=== PATIENT | male | born 1955 | race Caucasian/White ===

== ENCOUNTER 2016-08-19 05:57 | Inpatient (IN) | payer MEDICARE, OTHER ==
[2016-08-19] MEDS ORDERED: HYDROmorphone 1 MG/ML Syringe IVPUSH ONE (06:14)
[2016-08-19] MEDS ORDERED: Ondansetron 4 MG/2 ML SDV IVPUSH ONE (06:15)
[2016-08-19] MEDS: Sodium Chloride 0.9% 1,000 ML IV SCH ×3 (06:19→19:12)
--- NOTE | 2016-08-19 07:40 | EDM.PDOC ---
ED HPI GENERAL MEDICAL PROBLEM - General Chief Complaint: Abdominal Pain Stated Complaint: [facility] Time Seen by Provider: 08/19/16 06:14 Source of Information: Reports: Patient, EMS History Limitations: Reports: Altered mental status - History of Present Illness INITIAL COMMENTS - FREE TEXT/NARRATIVE: 61-year-old male with metastatic liver cancer was brought in by ambulance with "abdominal pain". His history is very difficult to obtain because the patient received Dilaudid prior to me seeing him and he is very lethargic, slurred speech and difficult to understand. It appears he's currently homeless, the abdominal pain has been bothering him for 1 to 2 days. Onset: unknown/unsure Location: Reports: abdomen abdominal Pain Score (Numeric/FACES): 10 - Related Data Allergies Allergy/AdvReac Type Severity Reaction Status Date / Time Penicillins Allergy Hives Verified 06/22/16 10:11 Home Meds: Home Meds Pramipexole [Mirapex] 1 mg PO TID 05/31/13 [History] oxyCODONE 10 mg PO Q4H PRN 04/14/15 [History] Nexavar 200 mg PO BID 03/16/16 [History] Rifaximin [Xifaxan] 1 tab PO BID 03/16/16 [History] Bacitracin [Bacitracin Oint] 1 gm TOP TID #1 tube 06/07/16 [Rx] Hypromellose [Natural Balance Tears] 0 ml EYEBOTH DAILY PRN #0 bottle 06/07/16 [ Rx] Diphenoxylate HCl/Atropine [Lomotil] 1 tab PO Q6H PRN #16 tablet 07/05/16 [Rx] Ondansetron [IMW: Ondansetron ODT] 4 mg PO .EVERY 6 HOURS PRN #10 tab 07/05/16 [ Rx] Past Medical History HEENT History: Reports: Impaired vision Other HEENT History: adnoids Cardiovascular History: Reports: Arrhythmia, Pacemaker Other Cardiovascular History: Edema Respiratory History: Reports: SOB, Other (see below) Other Respiratory History: "lung capacity of an 78 year old" Gastrointestinal History: Reports: Cirrhosis, Colon polyp, Diverticulosis, Hepatitis, Other (see below) Other Gastrointestinal History: diverticulitis, bleeding ulcer, hep C. Live CA Genitourinary History: Reports: Renal calculus Musculoskeletal History: Reports: Back pain, chronic, Neck pain, chronic Other Musculoskeletal History: laminectomy Neurological History: Reports: Concussion, Other (see below) Other Neuro History: RLS Psychiatric History: Reports: Addiction Endocrine/Metabolic History: Reports: Diabetes, type II, Other (see below) Other Endocrine/Metabolic History: lost 60lbs no longer diabetic Hematologic History: Reports: Anemia, Blood transfusion(s) Immunologic History: Reports: Immunosuppression Other Immunologic History: hepatitis c, chemo Oncologic (Cancer) History: Reports: Liver Other Oncologic History: 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 Terminal CA Dermatologic History: Reports: Cellulitis, Other (see below) Other Dermatologic History: MRSA - Infectious Disease History Infectious Disease History: Reports: MRSA - Past Surgical History HEENT Surgical History: Reports: Adenoidectomy, Tonsillectomy Cardiovascular Surgical History: Reports: Other (see below) Other Cardiovascular Surgeries/Procedures: ablation Other GI Surgeries/Procedures: liver cancer. Paracentesis done 03/16/2016 with 3200ml fluid removed. 05/2016 [place] shunt Male Surgical History: Reports: Lithotripsy (ESWL) Neurological Surgical History: Reports: Laminectomy Musculoskeletal Surgical History: Reports: Other (see below) Other Musculoskeletal Surgeries/Procedures:: left bicep repair Social & Family History - Family History Family Medical History: Noncontributory HEENT: Reports: None - Tobacco Use Smoking Status *Q: Current Every Day Smoker Years of Tobacco use: 5 Packs/Tins Daily: 0.5 Used Tobacco, but Quit: No Month Tobacco Last Used: november Second Hand Smoke Exposure: Yes - Caffeine Use Caffeine Use: Reports: Coffee - Alcohol Use Days Per Week of Alcohol Use: 0 - Recreational Drug Use Recreational Drug Use: Yes Drug Use in Last 12 Months: Yes Recreational Drug Type: Reports: Marijuana/Hashish Other 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 has 6 children in the area.) ED ROS GENERAL - Review of Systems Review Of Systems: Unable To Obtain ED EXAM, GENERAL - Physical Exam Exam: See Below Exam Limited By: Altered mental status General Appearance: lethargic Eye Exam: bilateral eye: other (Able to open his eyes on command briefly) Respiratory/Chest: no respiratory distress, lungs clear Cardiovascular: regular rate, rhythm GI/Abdominal: distended (Abdomen is diffusely tender and distended, it doesn't seem to have a focal area of tenderness), tender Extremities: redness (Patient has hyperemic skin of the lower extremities along with 2+ pedal edema) Psychiatric: depressed mood, flat affect Skin Exam: Erythema (Lower extremities below the knees), Pallor Course - Vital Signs Last Recorded V/S: Last Vital Signs Temp 98.2 F 08/19/16 10:08 Pulse 69 08/19/16 07:11 Resp 18 08/19/16 10:08 BP 115/67 08/19/16 10:08 Pulse Ox 99 08/19/16 10:08 - Orders/Labs/Meds Orders: Active Orders 24 hr Category Date Time Status UA W/MICROSCOPIC [URIN] Stat Lab 08/19/16 06:16 Uncollected Sodium Chloride 0.9% [Normal Saline] 1,000 ml Med 08/19/16 06:15 Active IV ASDIRECTED Medication Orders Artificial Tears (Natural Balance Tears) 0 ml EYEBOTH DAILY PRN PRN Reason: Dry Eyes Bacitracin (Bacitracin Oint) 0 gm TOP TID [facility] Diphenoxylate HCl/Atropine (Lomotil 0.025-2.5 Mg) 1 tab PO Q6H PRN PRN Reason: Diarrhea Sodium Chloride (Normal Saline) 1,000 mls @ 100 mls/hr IV ASDIRECTED [facility] Last Admin: 08/19/16 06:19 Dose: 150 mls/hr Non-Formulary Medication (Nexavar) 200 mg PO BID [facility] Ondansetron HCl (Zofran Odt) 4 mg PO Q4H PRN PRN Reason: Nausea able to take PO Oxycodone HCl (Oxycodone) 10 mg PO Q4H PRN PRN Reason: Pain Pramipexole Dihydrochloride (Mirapex) 1 mg PO TID [facility] Rifaximin (Xifaxan) 550 mg PO BID [facility] Sodium Chloride (Saline Flush) 10 ml FLUSH ASDIRECTED PRN PRN Reason: Keep Vein Open Labs: Laboratory Tests 08/19/16 08/19/16 08/19/16 Range/Units 06:16 06:16 07:04 WBC 6.4 (4.5-11.0) K/uL RBC 3.56 L (4.30-5.90) M/uL Hgb 10.6 L (12.0-15.0) g/dL Hct 31.2 L (40.0-54.0) % MCV 88 (80-98) fL MCH 30 (27-31) pg MCHC 34 (32-36) % Plt Count 62 L (150-400) K/uL Neut % (Auto) 69 H (36-66) % Lymph % (Auto) 15 L (24-44) % [place] % (Auto) 9 H (2-6) % Eos % (Auto) 7 H (2-4) % Baso % (Auto) 1 (0-1) % Sodium 146 (140-148) mmol/L Potassium 3.9 (3.6-5.2) mmol/L Chloride 113 H (100-108) mmol/L Carbon Dioxide 24 (21-32) mmol/L Anion Gap 12.9 (5.0-14.0) mmol/L BUN 24 H (7-18) mg/dL Creatinine 1.0 (0.8-1.3) mg/dL Est Cr Clr Drug Dosing 85.45 mL/min Estimated GFR (MDRD) > 60 (>60) Glucose 131 H (74-106) mg/dL Calcium 7.4 L (8.5-10.1) mg/dL Total Bilirubin 1.4 H (0.2-1.0) mg/dL AST 104 H (15-37) U/L ALT 109 H (12-78) U/L Alkaline Phosphatase 90 (46-116) U/L Ammonia 163 H (11-32) mmol/L Total Protein 7.0 (6.4-8.2) g/dL Albumin 2.0 L (3.4-5.0) g/dL Globulin 5.0 H (2.3-3.5) g/dL Albumin/Globulin Ratio 0.4 L (1.2-2.2) Meds: Medications Generic Name Dose Route Start Last Admin Trade Name Freq PRN Reason Stop Dose Admin Artificial Tears 0 ml 08/19/16 09:03 Natural Balance Tears EYEBOTH DAILY PRN Dry Eyes Bacitracin 0 gm 08/19/16 14:00 Bacitracin Oint TOP TID [facility] Diphenoxylate HCl/Atropine 1 tab 08/19/16 09:03 Lomotil 0.025-2.5 Mg PO Q6H PRN Diarrhea Sodium Chloride 1,000 mls @ 100 mls/hr 08/19/16 06:15 08/19/16 06:19 Normal Saline IV 150 mls/hr ASDIRECTED KRYS Administration Non-Formulary Medication 200 mg 08/19/16 21:00 Nexavar PO BID [facility] Ondansetron HCl 4 mg 08/19/16 08:57 Zofran Odt PO Q4H PRN Nausea able to take PO Oxycodone HCl 10 mg 08/19/16 09:03 Oxycodone PO Q4H PRN Pain Pramipexole Dihydrochloride 1 mg 08/19/16 14:00 Mirapex PO TID KR[facility] Rifaximin 550 mg 08/19/16 11:00 Xifaxan PO BID KR[facility] Sodium Chloride 10 ml 08/19/16 08:57 Saline Flush FLUSH ASDIRECTED PRN Keep Vein Open Discontinued Medications Generic Name Dose Route Start Last Admin Trade Name Freq PRN Reason Stop Dose Admin Hydromorphone HCl 1 mg 08/19/16 06:14 08/19/16 06:20 Dilaudid IVPUSH 08/19/16 06:15 1 mg ONETIME ONE Administration Ondansetron HCl 4 mg 08/19/16 06:15 08/19/16 06:19 Zofran IVPUSH 08/19/16 06:16 4 mg ONETIME ONE Administration - Re-Assessments/Exams Free Text/Narrative Re-Assessment/Exam: 08/19/16 07:38 Initial labs were ordered by Dr. Valdes and IVs initiated by EMS were continued. Patient was complaining of significant pain so was given 1 mg of Dilaudid IV. I added an ammonia level, and after a brief visit and exam with the patient I contacted Dr. Wei Umaña for admission 08/19/16 08:12 Ammonia level was 163, he also had diffuse elevated liver enzymes and bilirubin. In a confused state he got out of bed and sat on the commode for a loose stool but did not pull down his diaper. He continued to be nauseated with occasional emesis and may need an NG for lactulose therapy. I will discuss this with his primary care provider who will be admitting the patient. Departure - Departure Time of Disposition: 09:47 Disposition: Admitted As Inpatient 64 Condition: poor Clinical Impression: Hepatic encephalopathy, Liver cancer, primary, with metastasis from liver to other site Hepatic cirrhosis Qualifiers: Hepatic cirrhosis type: other cirrhosis Qualified Code(s): K74.69 - Other cirrhosis of liver
[2016-08-19] MEDS ORDERED: Sodium Chloride 0.9% 10 ML Syringe FLUSH PRN (08:57)
[2016-08-19] MEDS ORDERED: Ondansetron 4 MG Tab.DIS PO PRN ×2 (08:57→09:03)
[2016-08-19] MEDS ORDERED: Hypromellose 0.4% Ophth Soln 15 ML Bottle EYEBOTH PRN (09:03)
[2016-08-19] MEDS ORDERED: Atropine/Diphenoxylate 0.025-2.5 MG Tab PO PRN (09:03)
[2016-08-19] MEDS: Rifaximin 550 MG Tab PO SCH ×2 (13:29→21:12)
[2016-08-19] MEDS: Pramipexole 0.5 MG Tab PO SCH ×2 (13:30→21:12)
[2016-08-19] MEDS: Bacitracin Oint 28.35 GM Tube TOP SCH ×2 (13:41→21:12)
[2016-08-19] MEDS: oxyCODONE 5 MG Tab PO PRN (13:47)
--- NOTE | 2016-08-19 20:59 | PCM.HP ---
H&P History of Present Illness - General Date of Service: 08/19/16 Admit Problem/Dx: Admission Diagnosis/Problem Admission Diagnosis/Problem Liver failure Source of Information: Patient, Old records History Limitations: Reports: Altered mental status - History of Present Illness Initial Comments - Free Text/Narative: Jonathan is a 61-year-old male who has a know hepatocellular carcinoma with metastasis in severe liver failure. He was recently in the hospital in [place] after coming back from seeing his sister in [place] and he was week. He comes in after being bought in by ambulance. He is not able to take care of himself. His mental status is very poor. He is orientated to person and place not sure about time. His condition is chronic having a very poor appetite and very weak. He does have pain which is controlled by narcotics. Without narcotics his pain is 10/10. Onset of Symptoms: Reports: gradual Location: Reports: abdomen Severity: severe Improves with: Reports: None Worsens with: Reports: Movement Context: Reports: activity/exercise Associated Symptoms: Reports: malaise, weakness abdominal Pain Score (Numeric/FACES): 10 - Related Data Allergies/Adverse Reactions: Allergies Allergy/AdvReac Type Severity Reaction Status Date / Time Penicillins Allergy Hives Verified 06/22/16 10:11 Home Medications: Home Meds Pramipexole [Mirapex] 1 mg PO TID 05/31/13 [History] oxyCODONE 10 mg PO Q4H PRN 04/14/15 [History] Nexavar 200 mg PO BID 03/16/16 [History] Rifaximin [Xifaxan] 1 tab PO BID 03/16/16 [History] Bacitracin [Bacitracin Oint] 1 gm TOP TID #1 tube 06/07/16 [Rx] Hypromellose [Natural Balance Tears] 0 ml EYEBOTH DAILY PRN #0 bottle 06/07/16 [ Rx] Diphenoxylate HCl/Atropine [Lomotil] 1 tab PO Q6H PRN #16 tablet 07/05/16 [Rx] Ondansetron [IMW: Ondansetron ODT] 4 mg PO .EVERY 6 HOURS PRN #10 tab 07/05/16 [ Rx] Past Medical History HEENT History: Reports: Impaired vision Other HEENT History: adnoids Cardiovascular History: Reports: Arrhythmia, Pacemaker Other Cardiovascular History: Edema Respiratory History: Reports: SOB, Other (see below) Other Respiratory History: "lung capacity of an 78 year old" Gastrointestinal History: Reports: Cirrhosis, Colon polyp, Diverticulosis, Hepatitis, Other (see below) Other Gastrointestinal History: diverticulitis, bleeding ulcer, hep C. Live [place] Genitourinary History: Reports: Renal calculus Musculoskeletal History: Reports: Back pain, chronic, Neck pain, chronic Other Musculoskeletal History: laminectomy Neurological History: Reports: Concussion, Other (see below) Other Neuro History: RLS Psychiatric History: Reports: Addiction Endocrine/Metabolic History: Reports: Diabetes, type II, Other (see below) Other Endocrine/Metabolic History: lost 60lbs no longer diabetic Hematologic History: Reports: Anemia, Blood transfusion(s) Immunologic History: Reports: Immunosuppression Other Immunologic History: hepatitis c, chemo Oncologic (Cancer) History: Reports: Liver Other Oncologic History: 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 Terminal CA Dermatologic History: Reports: Cellulitis, Other (see below) Other Dermatologic History: MRSA - Infectious Disease History Infectious Disease History: Reports: MRSA - Past Surgical History HEENT Surgical History: Reports: Adenoidectomy, Tonsillectomy Cardiovascular Surgical History: Reports: Other (see below) Other Cardiovascular Surgeries/Procedures: ablation Other GI Surgeries/Procedures: liver cancer. Paracentesis done 03/16/2016 with 3200ml fluid removed. 05/2016 [place] shunt Male Surgical History: Reports: Lithotripsy (ESWL) Neurological Surgical History: Reports: Laminectomy Musculoskeletal Surgical History: Reports: Other (see below) Other Musculoskeletal Surgeries/Procedures:: left bicep repair Social & Family History - Family History Family Medical History: Noncontributory HEENT: Reports: None - Tobacco Use Smoking Status *Q: Current Some Day Smoker Years of Tobacco use: 5 Packs/Tins Daily: 0.5 Used Tobacco, but Quit: No Month Tobacco Last Used: november Second Hand Smoke Exposure: Yes - Caffeine Use Caffeine Use: Reports: Coffee - Alcohol Use Days Per Week of Alcohol Use: 0 - Recreational Drug Use Recreational Drug Use: Yes Drug Use in Last 12 Months: Yes Recreational Drug Type: Reports: Marijuana/Hashish Other Recreational Drug Type: 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. has 6 children in the area.) H&P Review of Systems - Review of Systems: Review Of Systems: See Below General: Reports: night sweats, decreased appetite HEENT: Reports: visual changes Pulmonary: Reports: shortness of breath Cardiovascular: Reports: edema Gastrointestinal: Reports: Abdominal pain, Decreased appetite, Distension, Nausea Genitourinary: Reports: no symptoms Musculoskeletal: Reports: muscle pain Skin: Reports: pruritis Psychiatric: Reports: depression Neurological: Reports: difficulty walking, weakness, gait disturbance Exam - Exam Exam: See Below - Vital Signs Vital Signs: Last Vital Signs Temp 98.9 F 08/19/16 18:56 Pulse 63 08/19/16 18:56 Resp 16 08/19/16 18:56 BP 105/64 08/19/16 18:56 Pulse Ox 97 08/19/16 18:56 Weight: 185 lb 0.014 oz - Exam General: cooperative, moderate distress, sedated, lethargic HEENT: EACs clear Neck: supple Lungs: Clear to auscultation Cardiovascular: regular rate Abdomen: normal bowel sounds, distention, guarding, tenderness Extremities: edema Peripheral Pulses: 1+: radial (L), radial (R) Skin: warm, dry Psychiatric: depressed - Patient Data Result Diagrams: 08/19/16 06:16 08/19/16 06:16 *Q Meaningful Use (ADM) - VTE *Q VTE Criteria *Q: - Stroke *Q Stroke Criteria *Q: - AMI *Q AMI Criteria *Q: Problem List Initiated/Reviewed/Updated: Yes Orders Last 24hrs: Active Orders 24 hr Category Date Time Status Atropine/Diphenoxylate [Lomotil 0.025-2.5 MG] Med 08/19/16 09:03 Active 1 tab PO Q6H PRN Bacitracin [Bacitracin Oint] Med 08/19/16 14:00 Active 0 gm TOP TID Hypromellose [Natural Balance Tears] Med 08/19/16 09:03 Active 0 ml EYEBOTH DAILY PRN Nexavar Med 08/19/16 21:00 Pending 200 mg PO BID Pramipexole [Mirapex] Med 08/19/16 14:00 Active 1 mg PO TID Rifaximin [Xifaxan] Med 08/19/16 11:00 Active 550 mg PO BID oxyCODONE Med 08/19/16 09:03 Active 10 mg PO Q4H PRN Medication Orders Artificial Tears (Natural Balance Tears) 0 ml EYEBOTH DAILY PRN PRN Reason: Dry Eyes Bacitracin (Bacitracin Oint) 0 gm TOP TID [facility] Last Admin: 08/19/16 13:41 Dose: 1 applic Diphenoxylate HCl/Atropine (Lomotil 0.025-2.5 Mg) 1 tab PO Q6H PRN PRN Reason: Diarrhea Sodium Chloride (Normal Saline) 1,000 mls @ 100 mls/hr IV ASDIRECTED [facility] Last Admin: 08/19/16 19:12 Dose: 150 mls/hr Infusion: 08/19/16 18:43 Dose: 150 mls/hr Admin: 08/19/16 12:02 Dose: 150 mls/hr Infusion: 08/19/16 12:02 Dose: 150 mls/hr Admin: 08/19/16 06:19 Dose: 150 mls/hr Non-Formulary Medication (Nexavar) 200 mg PO BID [facility] Ondansetron HCl (Zofran Odt) 4 mg PO Q4H PRN PRN Reason: Nausea able to take PO Oxycodone HCl (Oxycodone) 10 mg PO Q4H PRN PRN Reason: Pain Last Admin: 08/19/16 13:47 Dose: 10 mg Pramipexole Dihydrochloride (Mirapex) 1 mg PO TID [facility] Last Admin: 08/19/16 13:30 Dose: 1 mg Rifaximin (Xifaxan) 550 mg PO BID [facility] Last Admin: 08/19/16 13:29 Dose: 550 mg Sodium Chloride (Saline Flush) 10 ml FLUSH ASDIRECTED PRN PRN Reason: Keep Vein Open Assessment/Plan Comment:: Assessment/plan: #1. Adenocarcinoma of the liver with metastasis. This has been a progressive problem with increased and recurrent abdominal fluid. He does have a port to remove fluid. His ammonia level is 163. His bilirubin is 1.4 and hemoglobin 10.6. #2. Hepatic failure. This is secondary to liver cancer. With hepatic encephalopathy. #3. Restless Leg Syndrome. He is taking Mirapex for control. #4. Hypertension, his blood pressure is stable but low. #5. Hepatitis C. treated. Overall prognosis is poor. At his request he is a full code. #
[2016-08-19] MEDS ORDERED: NEXAVAR 200 MG PO SCH (21:00)
[2016-08-20] MEDS: Sodium Chloride 0.9% 1,000 ML IV SCH ×2 (04:34→21:08)
[2016-08-20] MEDS: oxyCODONE 5 MG Tab PO PRN ×2 (04:45→21:14)
[2016-08-20] MEDS: Pramipexole 0.5 MG Tab PO SCH ×3 (09:01→21:09)
[2016-08-20] MEDS: Rifaximin 550 MG Tab PO SCH ×2 (09:02→21:09)
[2016-08-20] MEDS: Bacitracin Oint 28.35 GM Tube TOP SCH ×3 (09:02→21:09)
--- NOTE | 2016-08-20 20:16 | PCM.PN ---
- General Info Date of Service: 08/20/16 Functional Status: Reports: other (He is complaining about pain or tightness in the abdomen) - Review of Systems General: Reports: weakness, fatigue HEENT: Reports: visual changes Pulmonary: Reports: shortness of breath, cough Cardiovascular: Reports: no symptoms Gastrointestinal: Reports: Diarrhea Genitourinary: Reports: no symptoms Musculoskeletal: Reports: joint pain Skin: Reports: dryness, rash Neurological: Reports: confusion, difficulty walking, weakness, gait disturbance Psychiatric: Reports: confusion - Patient Data Vitals - most recent: Last Vital Signs Temp 99.9 F 08/20/16 19:47 Pulse 68 08/20/16 19:47 Resp 18 08/20/16 19:47 BP 145/78 H 08/20/16 19:47 Pulse Ox 96 08/20/16 19:47 Weight - most recent: 185 lb 0.014 oz I&O - last 24 hours: Intake & Output 08/20/16 08/20/16 08/20/16 06:59 14:59 22:59 Intake Total 1548 1200 750 Output Total 100 300 Balance 1448 900 750 Lab Results last 24 hrs: Laboratory Results - last 24 hr 08/19/16 Range/Units 22:26 Urine Color Brown Urine Appearance Clear Urine pH 6.0 (4.5-8.0) Ur Specific [place] 1.025 (1.008-1.030) Urine Protein 30 H (NEGATIVE) mg/dL Urine Glucose (UA) Normal (NEGATIVE) mg/dL Urine Ketones Negative (NEGATIVE) mg/dL Urine Occult Blood Moderate (NEGATIVE) Urine Nitrite Negative (NEGAITVE) Urine Bilirubin Small (NEGATIVE) Urine Urobilinogen 4 (NORMAL) mg/dL Ur Leukocyte Esterase Negative (NEGATIVE) Urine RBC 0-5 (0-5) Urine WBC 0-5 (0-5) Ur Epithelial Cells Few Amorphous Sediment Moderate Urine Bacteria Many Urine Mucus Moderate Med Orders - Current: Current Medications Artificial Tears (Natural Balance Tears) 0 ml EYEBOTH DAILY PRN PRN Reason: Dry Eyes Bacitracin (Bacitracin Oint) 0 gm TOP TID [facility] Last Admin: 08/20/16 14:40 Dose: 1 applic Diphenoxylate HCl/Atropine (Lomotil 0.025-2.5 Mg) 1 tab PO Q6H PRN PRN Reason: Diarrhea Sodium Chloride (Normal Saline) 1,000 mls @ 100 mls/hr IV ASDIRECTED [facility] Last Admin: 08/20/16 04:34 Dose: 150 mls/hr Non-Formulary Medication (Nexavar) 200 mg PO BID [facility] Ondansetron HCl (Zofran Odt) 4 mg PO Q4H PRN PRN Reason: Nausea able to take PO Oxycodone HCl (Oxycodone) 10 mg PO Q4H PRN PRN Reason: Pain Last Admin: 08/20/16 04:45 Dose: 10 mg Pramipexole Dihydrochloride (Mirapex) 1 mg PO TID [facility] Last Admin: 08/20/16 14:41 Dose: 1 mg Rifaximin (Xifaxan) 550 mg PO BID [facility] Last Admin: 08/20/16 09:02 Dose: 550 mg Sodium Chloride (Saline Flush) 10 ml FLUSH ASDIRECTED PRN PRN Reason: Keep Vein Open Discontinued Medications Hydromorphone HCl (Dilaudid) 1 mg IVPUSH ONETIME ONE Stop: 08/19/16 06:15 Last Admin: 08/19/16 06:20 Dose: 1 mg Ondansetron HCl (Zofran) 4 mg IVPUSH ONETIME ONE Stop: 08/19/16 06:16 Last Admin: 08/19/16 06:19 Dose: 4 mg - Exam General: cooperative, moderate distress, lethargic HEENT: Pupils equal, Pupils reactive, EOMI, Mucous membr. moist/pink Neck: supple, trachea midline Lungs: Clear to auscultation, Decreased breath sounds Cardiovascular: irregular rhythm Abdomen: rigidity, distension Back Exam: normal inspection, full range of motion Extremities: no edema Skin: warm, dry, intact Psy/Mental Status: depressed - Problem List Review Problem List Initiated/Reviewed/Updated: Yes - My Orders Last 24 Hours: My Active Orders 08/19/16 21:00 Nexavar 200 mg PO BID 08/20/16 11:59 Communication Order [RC] ASDIRECTED - Plan Plan:: Assessment/plan: #1. Adenocarcinoma of the liver with metastasis. This has been a progressive problem with increased and recurrent abdominal fluid. He does have a port to remove fluid. His ammonia level is 163. His bilirubin is 1.4 and hemoglobin 10.6. He has not used the pump to relieve the fluid in the abdomen. I told the nurses how to do it and she do it every 4 hours. His liver is failing #2. Hepatic failure. This is secondary to liver cancer. With hepatic encephalopathy. #3. Restless Leg Syndrome. He is taking Mirapex for control. #4. Hypertension, his blood pressure is 145 systolic. We'll need to watch this and treat if indicated. #5. Hepatitis C. treated. Overall prognosis is poor. At his request he is a full code. #
[2016-08-21] MEDS: Sodium Chloride 0.9% 1,000 ML IV SCH ×2 (05:04→15:10)
[2016-08-21] MEDS: Bacitracin Oint 28.35 GM Tube TOP SCH ×3 (08:20→21:18)
[2016-08-21] MEDS: Pramipexole 0.5 MG Tab PO SCH ×3 (08:21→20:58)
[2016-08-21] MEDS: Rifaximin 550 MG Tab PO SCH ×2 (08:21→20:58)
[2016-08-21] MEDS: oxyCODONE 5 MG Tab PO PRN ×3 (08:48→20:57)
--- NOTE | 2016-08-21 21:58 | PCM.PN ---
- General Info Date of Service: 08/21/16 Functional Status: Reports: pain controlled - Review of Systems General: Reports: weakness HEENT: Reports: no symptoms Pulmonary: Reports: shortness of breath Cardiovascular: Reports: no symptoms Gastrointestinal: Reports: Decreased appetite Genitourinary: Reports: no symptoms Musculoskeletal: Reports: joint pain Skin: Reports: no symptoms Neurological: Reports: weakness, gait disturbance Psychiatric: Reports: depression - Patient Data Vitals - most recent: Last Vital Signs Temp 99.4 F 08/21/16 21:04 Pulse 73 08/21/16 21:04 Resp 20 08/21/16 21:04 BP 125/69 08/21/16 21:04 Pulse Ox 95 08/21/16 21:04 Weight - most recent: 226 lb I&O - last 24 hours: Intake & Output 08/21/16 08/21/16 08/21/16 06:59 14:59 22:59 Intake Total 2430 800 1171 Output Total 250 400 Balance 2430 550 771 Med Orders - Current: Current Medications Artificial Tears (Natural Balance Tears) 0 ml EYEBOTH DAILY PRN PRN Reason: Dry Eyes Bacitracin (Bacitracin Oint) 0 gm TOP TID [facility] Last Admin: 08/21/16 21:18 Dose: Not Given Diphenoxylate HCl/Atropine (Lomotil 0.025-2.5 Mg) 1 tab PO Q6H PRN PRN Reason: Diarrhea Non-Formulary Medication (Nexavar) 200 mg PO BID [facility] Ondansetron HCl (Zofran Odt) 4 mg PO Q4H PRN PRN Reason: Nausea able to take PO Oxycodone HCl (Oxycodone) 10 mg PO Q4H PRN PRN Reason: Pain Last Admin: 08/21/16 20:57 Dose: 10 mg Pramipexole Dihydrochloride (Mirapex) 1 mg PO TID [facility] Last Admin: 08/21/16 20:58 Dose: 1 mg Rifaximin (Xifaxan) 550 mg PO BID [facility] Last Admin: 08/21/16 20:58 Dose: 550 mg Sodium Chloride (Saline Flush) 10 ml FLUSH ASDIRECTED PRN PRN Reason: Keep Vein Open Discontinued Medications Hydromorphone HCl (Dilaudid) 1 mg IVPUSH ONETIME ONE Stop: 08/19/16 06:15 Last Admin: 08/19/16 06:20 Dose: 1 mg Sodium Chloride (Normal Saline) 1,000 mls @ 100 mls/hr IV ASDIRECTED [facility] Last Admin: 08/21/16 15:10 Dose: 100 mls/hr Ondansetron HCl (Zofran) 4 mg IVPUSH ONETIME ONE Stop: 08/19/16 06:16 Last Admin: 08/19/16 06:19 Dose: 4 mg - Exam General: oriented, cooperative, moderate distress HEENT: Pupils equal, Pupils reactive, EOMI, Mucous membr. moist/pink Neck: supple Lungs: Clear to auscultation, Normal respiratory effort Cardiovascular: regular rate, regular rhythm Abdomen: guarding, tenderness, distension Extremities: edema Peripheral Pulses: 1+: radial (L), radial (R) Skin: warm, dry, intact Psy/Mental Status: depressed - Problem List Review Problem List Initiated/Reviewed/Updated: Yes - My Orders Last 24 Hours: My Active Orders 08/21/16 17:30 Abdomen Ltd [US] Routine 08/21/16 17:32 Convert IV to Saline Lock [OM.PC] Routine 08/21/16 18:23 Notify Provider Consults [RC] ASDIRECTED Consult to Physician [CONS] Routine - Plan Plan:: Assessment/plan: #1. Adenocarcinoma of the liver with metastasis. This has been a progressive problem with increased and recurrent abdominal fluid. He does have a port to remove fluid. I question the functionality of the pump in the abdomen to relieve the fluid. A consult with Dr. Singh to assess this as they're still significant amount of fluid as documented by ultrasound of the abdomen as well. I was told by the tech that there was at least 3 L of fluid. #2. Hepatic failure. This is secondary to liver cancer. With hepatic encephalopathy. #3. Restless Leg Syndrome. He is taking Mirapex for control. #4. Hypertension, his blood pressure is 145 systolic. We'll need to watch this and treat if indicated. #5. Hepatitis C. treated. Overall prognosis is poor. At his request he is a full code. Apparently he is homeless at the present time this morning we talked to him about a shelter but now he found a place to go to stay with a elderly couple. I will see about discharge tomorrow once the port her pump is evaluated. #
[2016-08-22] MEDS: oxyCODONE 5 MG Tab PO PRN ×2 (02:41→08:40)
[2016-08-22] MEDS: Pramipexole 0.5 MG Tab PO SCH (08:30)
[2016-08-22] MEDS: Bacitracin Oint 28.35 GM Tube TOP SCH (08:31)
[2016-08-22] MEDS: Rifaximin 550 MG Tab PO SCH (08:31)
--- NOTE | 2016-08-22 08:46 | US ---
Abdomen Ltd HISTORY: Evaluate for ascites COMPARISON: CT scan 06/22/2016. Plain films of the abdomen 06/23/2016. FINDINGS: Patient has dialysis type shunt in the right lower quadrant. There is a small amount of as cites in the right upper, right lower, and left lower quadrants.
[2016-08-22 10:37] VITALS: BP 121/70
--- NOTE | 2016-08-22 21:32 | PCM.PN ---
- General Info Date of Service: 08/22/16 Functional Status: Reports: pain controlled - Review of Systems General: Reports: weakness HEENT: Reports: no symptoms Pulmonary: Reports: shortness of breath Cardiovascular: Reports: no symptoms Gastrointestinal: Reports: Nausea Genitourinary: Reports: no symptoms Musculoskeletal: Reports: joint pain Skin: Reports: no symptoms Neurological: Reports: weakness Psychiatric: Reports: no symptoms - Patient Data Vitals - most recent: Last Vital Signs Temp 98.2 F 08/22/16 10:36 Pulse 58 L 08/22/16 10:36 Resp 18 08/22/16 10:36 BP 121/70 08/22/16 10:36 Pulse Ox 97 08/22/16 10:36 Weight - most recent: 224 lb 9.6 oz I&O - last 24 hours: Intake & Output 08/22/16 08/22/16 08/22/16 06:59 14:59 22:59 Intake Total 960 Balance 960 Lab Results last 24 hrs: Laboratory Results - last 24 hr 08/22/16 08/22/16 08/22/16 Range/Units 08:46 08:46 08:46 WBC 4.7 (4.5-11.0) K/uL RBC 3.38 L (4.30-5.90) M/uL Hgb 10.1 L (12.0-15.0) g/dL Hct 30.1 L (40.0-54.0) % MCV 89 (80-98) fL MCH 30 (27-31) pg MCHC 34 (32-36) % Plt Count 61 L (150-400) K/uL Neut % (Auto) 58 (36-66) % Lymph % (Auto) 17 L (24-44) % [place] % (Auto) 12 H (2-6) % Eos % (Auto) 12 H (2-4) % Baso % (Auto) 2 H (0-1) % Sodium 139 L (140-148) mmol/L Potassium 4.5 (3.6-5.2) mmol/L Chloride 109 H (100-108) mmol/L Carbon Dioxide 23 (21-32) mmol/L Anion Gap 11.5 (5.0-14.0) mmol/L BUN 25 H (7-18) mg/dL Creatinine 0.9 (0.8-1.3) mg/dL Est Cr Clr Drug Dosing 94.49 mL/min Estimated GFR (MDRD) > 60 (>60) Glucose 144 H (74-106) mg/dL Calcium 7.2 L (8.5-10.1) mg/dL Total Bilirubin 1.2 H (0.2-1.0) mg/dL AST 92 H (15-37) U/L ALT 93 H (12-78) U/L Alkaline Phosphatase 76 (46-116) U/L Ammonia 38 H (11-32) mmol/L Total Protein 6.6 (6.4-8.2) g/dL Albumin 1.9 L (3.4-5.0) g/dL Globulin 4.7 H (2.3-3.5) g/dL Albumin/Globulin Ratio 0.4 L (1.2-2.2) Med Orders - Current: Current Medications Discontinued Medications Artificial Tears (Natural Balance Tears) 0 ml EYEBOTH DAILY PRN PRN Reason: Dry Eyes Last Admin: 08/22/16 08:29 Dose: 1 drop Bacitracin (Bacitracin Oint) 0 gm TOP TID [facility] Last Admin: 08/22/16 08:31 Dose: 1 applic Diphenoxylate HCl/Atropine (Lomotil 0.025-2.5 Mg) 1 tab PO Q6H PRN PRN Reason: Diarrhea Hydromorphone HCl (Dilaudid) 1 mg IVPUSH ONETIME ONE Stop: 08/19/16 06:15 Last Admin: 08/19/16 06:20 Dose: 1 mg Sodium Chloride (Normal Saline) 1,000 mls @ 100 mls/hr IV ASDIRECTED [facility] Last Admin: 08/21/16 15:10 Dose: 100 mls/hr Non-Formulary Medication (Nexavar) 200 mg PO BID [facility] Ondansetron HCl (Zofran) 4 mg IVPUSH ONETIME ONE Stop: 08/19/16 06:16 Last Admin: 08/19/16 06:19 Dose: 4 mg Ondansetron HCl (Zofran Odt) 4 mg PO Q4H PRN PRN Reason: Nausea able to take PO Oxycodone HCl (Oxycodone) 10 mg PO Q4H PRN PRN Reason: Pain Last Admin: 08/22/16 08:40 Dose: 10 mg Pramipexole Dihydrochloride (Mirapex) 1 mg PO TID [facility] Last Admin: 08/22/16 08:30 Dose: 1 mg Rifaximin (Xifaxan) 550 mg PO BID [facility] Last Admin: 08/22/16 08:31 Dose: 550 mg Sodium Chloride (Saline Flush) 10 ml FLUSH ASDIRECTED PRN PRN Reason: Keep Vein Open - Exam General: alert, oriented HEENT: Pupils equal, Pupils reactive, EOMI, Mucous membr. moist/pink Neck: supple Lungs: Clear to auscultation, Normal respiratory effort Cardiovascular: regular rate, regular rhythm Abdomen: tenderness, distension Back Exam: normal inspection, full range of motion Extremities: no edema Peripheral Pulses: 1+: radial (L), radial (R) Skin: warm, dry Psy/Mental Status: depressed - Problem List Review Problem List Initiated/Reviewed/Updated: Yes - My Orders Last 24 Hours: My Active Orders 08/22/16 08:38 Ready for Discharge [RC] PER UNIT ROUTINE - Plan Plan:: Assessment/plan: #1. Adenocarcinoma of the liver with metastasis. This has been a progressive problem with increased and recurrent abdominal fluid. He does have a port to remove fluid. This was evaluated this morning by Dr. Singh and ultrasound and it is working well. He does needed more information on how to properly worked the peritoneal abdominal pump. #2. Hepatic failure. This is secondary to liver cancer. With hepatic encephalopathy. #3. Restless Leg Syndrome. He is taking Mirapex for control. #4. Hypertension, his blood pressure is 145 systolic. We'll need to watch this and treat if indicated. #5. Hepatitis C. treated. Overall prognosis is poor. At his request he is a full code. He is going to go home with friends and refuses to go to a care home. This is his choice since he is medically stable and capable of making this decision.
--- NOTE | 2016-08-22 21:38 | PCM.DCSUM1 ---
Discharge Summary - Hospital Course Brief History: He was admitted after coming in by ambulance in a very weakened condition and mentally compromised. He has a history of cancer of the liver with hepatitis C. His ammonia level was found to be 163 and he was confused and dehydrated. - Discharge Data Discharge Date: 08/22/16 Discharge Disposition: Home, Self-Care 01 Condition: Fair - Patient Summary/Data Consults: Consultations 08/21/16 18:23 Consult to Physician [CONS] Routine Consulting Provider: Domingo Singh Courtesy Call Completed to Consulting Physician: Yes Reason for Consult: ?deshawn shunt functioning correctly or not Person Notified: Dr Singh Date Notified: 08/21/16 Time Notified: 18:23 Hospital Course: He was given fluid and rehydrated and his mental status improved while in the hospital. His abdominal fluid was of concern throughout his entire time and instruction was given to him how to properly from the fluid from his abdomen. His ammonia level was 163 upon admission and down to 38 and his mental status improved dramatically. His hemoglobin remained low at 10 but stable. His prognosis is certainly poor. - Patient Instructions Diet: Usual Diet as Tolerated Activity: As Tolerated Showering/Bathing: May Shower - Discharge Plan Home Medications: Home Meds Pramipexole [Mirapex] 1 mg PO TID 05/31/13 [History] oxyCODONE 10 mg PO Q4H PRN 04/14/15 [History] Nexavar 200 mg PO BID 03/16/16 [History] Rifaximin [Xifaxan] 1 tab PO BID 03/16/16 [History] Bacitracin [Bacitracin Oint] 1 gm TOP TID #1 tube 06/07/16 [Rx] Diphenoxylate HCl/Atropine [Lomotil] 1 tab PO Q6H PRN #16 tablet 07/05/16 [Rx] Ondansetron [IMW: Ondansetron ODT] 4 mg PO .EVERY 6 HOURS PRN #10 tab 07/05/16 [ Rx] Referrals: Wei Umaña Sr, MD [Primary Care Provider] - Domingo Singh MD [Physician] - 08/30/16 9:00 am - Discharge Summary/Plan Comment Discharge Summary/Plan Comment: Discharge diagnosis: #1. Hepatocellular carcinoma. #2. Restless leg syndrome. #3. Anemia. #4. Generalized weakness. - General Info Date of Service: 08/22/16 Functional Status: Reports: pain controlled - Review of Systems General: Reports: weakness, fatigue HEENT: Reports: no symptoms Pulmonary: Reports: shortness of breath Cardiovascular: Reports: dyspnea on exertion Gastrointestinal: Reports: Nausea Genitourinary: Reports: no symptoms Musculoskeletal: Reports: joint pain Skin: Reports: no symptoms Neurological: Reports: weakness Psychiatric: Reports: depression - Patient Data Vitals - Most Recent: Last Vital Signs Temp 98.2 F 08/22/16 10:36 Pulse 58 L 08/22/16 10:36 Resp 18 08/22/16 10:36 BP 121/70 08/22/16 10:36 Pulse Ox 97 08/22/16 10:36 Weight - Most Recent: 226 lb I&O - Last 24 hours: Intake & Output 08/22/16 08/22/16 08/22/16 06:59 14:59 22:59 Intake Total 960 Balance 960 Lab Results - Last 24 hrs: Laboratory Results - last 24 hr 08/22/16 08/22/16 08/22/16 Range/Units 08:46 08:46 08:46 WBC 4.7 (4.5-11.0) K/uL RBC 3.38 L (4.30-5.90) M/uL Hgb 10.1 L (12.0-15.0) g/dL Hct 30.1 L (40.0-54.0) % MCV 89 (80-98) fL MCH 30 (27-31) pg MCHC 34 (32-36) % Plt Count 61 L (150-400) K/uL Neut % (Auto) 58 (36-66) % Lymph % (Auto) 17 L (24-44) % [place] % (Auto) 12 H (2-6) % Eos % (Auto) 12 H (2-4) % Baso % (Auto) 2 H (0-1) % Sodium 139 L (140-148) mmol/L Potassium 4.5 (3.6-5.2) mmol/L Chloride 109 H (100-108) mmol/L Carbon Dioxide 23 (21-32) mmol/L Anion Gap 11.5 (5.0-14.0) mmol/L BUN 25 H (7-18) mg/dL Creatinine 0.9 (0.8-1.3) mg/dL Est Cr Clr Drug Dosing 94.49 mL/min Estimated GFR (MDRD) > 60 (>60) Glucose 144 H (74-106) mg/dL Calcium 7.2 L (8.5-10.1) mg/dL Total Bilirubin 1.2 H (0.2-1.0) mg/dL AST 92 H (15-37) U/L ALT 93 H (12-78) U/L Alkaline Phosphatase 76 (46-116) U/L Ammonia 38 H (11-32) mmol/L Total Protein 6.6 (6.4-8.2) g/dL Albumin 1.9 L (3.4-5.0) g/dL Globulin 4.7 H (2.3-3.5) g/dL Albumin/Globulin Ratio 0.4 L (1.2-2.2) Med Orders - Current: Current Medications Discontinued Medications Artificial Tears (Natural Balance Tears) 0 ml EYEBOTH DAILY PRN PRN Reason: Dry Eyes Last Admin: 08/22/16 08:29 Dose: 1 drop Bacitracin (Bacitracin Oint) 0 gm TOP TID [facility] Last Admin: 08/22/16 08:31 Dose: 1 applic Diphenoxylate HCl/Atropine (Lomotil 0.025-2.5 Mg) 1 tab PO Q6H PRN PRN Reason: Diarrhea Hydromorphone HCl (Dilaudid) 1 mg IVPUSH ONETIME ONE Stop: 08/19/16 06:15 Last Admin: 08/19/16 06:20 Dose: 1 mg Sodium Chloride (Normal Saline) 1,000 mls @ 100 mls/hr IV ASDIRECTED [facility] Last Admin: 08/21/16 15:10 Dose: 100 mls/hr Non-Formulary Medication (Nexavar) 200 mg PO BID [facility] Ondansetron HCl (Zofran) 4 mg IVPUSH ONETIME ONE Stop: 08/19/16 06:16 Last Admin: 08/19/16 06:19 Dose: 4 mg Ondansetron HCl (Zofran Odt) 4 mg PO Q4H PRN PRN Reason: Nausea able to take PO Oxycodone HCl (Oxycodone) 10 mg PO Q4H PRN PRN Reason: Pain Last Admin: 08/22/16 08:40 Dose: 10 mg Pramipexole Dihydrochloride (Mirapex) 1 mg PO TID [facility] Last Admin: 08/22/16 08:30 Dose: 1 mg Rifaximin (Xifaxan) 550 mg PO BID [facility] Last Admin: 08/22/16 08:31 Dose: 550 mg Sodium Chloride (Saline Flush) 10 ml FLUSH ASDIRECTED PRN PRN Reason: Keep Vein Open - Exam General: Reports: alert, oriented HEENT: Reports: Pupils equal, Pupils reactive, EOMI, Mucous membr. moist/pink Neck: Reports: supple Lungs: Reports: Clear to auscultation, Normal respiratory effort Cardiovascular: Reports: regular rate, regular rhythm Abdomen: Reports: bowel sounds present, soft, tenderness, distension Back Exam: Reports: normal inspection, full range of motion Extremities: Reports: edema Skin: Reports: warm, dry, intact *Q Meaningful Use (DIS) - VTE *Q VTE Criteria *Q: - Stroke *Q Stroke Criteria *Q: - AMI *Q AMI Criteria *Q:
--- NOTE | 2016-08-23 07:31 | CONS ---
DATE OF SERVICE: 08/22/2016 REFERRING PHYSICIAN: CONSULTING PHYSICIAN: Domingo Singh MD HISTORY OF PRESENT ILLNESS: The patient is a 61-year-old male with hepatic cirrhosis associated with liver cancer and a malignant ascites. He has a [place] shunt in place that, up until recently, had been functioning satisfactorily. He presented with increasing ascites yesterday, and it would appear that the pump of the [place] shunt was not compressible. This morning, the patient was examined, and after pushing on the pump for a period of time, we were able to get it to empty and then refill, likely massaging some clot. The patient I think had not been pushing the shunt sufficiently. At this point, it appears to be opened. If it does occlude in a way that is not correctable by pushing the shunt, Urokinase could be injected into the system as well. At this point, the patient will likely be able to be discharged home later today. We will give him some additional instruction regarding pumping of the shunt, and he will likely be able to be discharged later today. We will schedule followup with Dr. Singh at [facility] on 08/30/2016. Domingo iSngh MD /[id number]
== END 2016-08-22 11:25 | disposition home or self-care (01) | DRG 436 ==
LOC: JP.ED 05:57 → JP.MS 08:57
PROVIDERS: ADMIT Internal Medicine; ATTEND Internal Medicine
DX: C22.0 Liver cell carcinoma (principal); C79.9 Secondary malignant neoplasm of unspecified site; R18.8 Other ascites; K72.90 Hepatic failure, unspecified without coma; F17.210 Nicotine dependence, cigarettes, uncomplicated; I10 Essential (primary) hypertension; E86.0 Dehydration; B19.20 Unspecified viral hepatitis C without hepatic coma; R53.1 Weakness; R41.0 Disorientation, unspecified; R10.9 Unspecified abdominal pain; Z59.0 Homelessness; G25.81 Restless legs syndrome; Z86.39 Personal history of other endocrine, nutritional and metabolic disease; Z87.898 Personal history of other specified conditions; Z92.21 Personal history of antineoplastic chemotherapy; M54.9 Dorsalgia, unspecified; G89.29 Other chronic pain; Z86.14 Personal history of Methicillin resistant Staphylococcus aureus infection; Z95.0 Presence of cardiac pacemaker; H54.7 Unspecified visual loss; Z88.0 Allergy status to penicillin
CPT/HCPCS: 36415; 80053; 82140; 85025; 96361; 96374; 96375; 99285; J1170; J2405; J7040; 76705; 76705-26; 81001; A9270-GY

== ENCOUNTER 2016-09-06 10:33 | Inpatient (IN) | payer MEDICARE, MEDICAID ==
--- NOTE | 2016-09-06 11:22 | CR ---
Chest Findings: Heart size within normal limits. Pacer with 2 leads. No focal consolidation. Hazy density which appears triangular with air bronchograms. Findings can indicate atelectasis versus developing infiltrate. This should be within the right lower lobe. This is new compared to prior.
--- NOTE | 2016-09-06 13:19 | EDM.PDOC ---
ED HPI GENERAL MEDICAL PROBLEM - General Chief Complaint: General Stated Complaint: HAS LIVER CANCER Time Seen by Provider: 09/06/16 10:49 Source of Information: Reports: EMS History Limitations: Reports: Altered mental status - History of Present Illness INITIAL COMMENTS - FREE TEXT/NARRATIVE: This patient arrived by EMS. He has liver cancer hepatitis C history of ascites and hepatic encephalopathy was hospitalized recently. The history we got today is that he is falling today and his pain is uncontrolled. EMS gave him 100 mcg that nail and 4 mg of Zofran in route to the hospital. The patient arrived moderately sedated and is unable to give much history at all when he awakens. Other Treatments SURGICAL SPECIALIST: zofran and fentanyl given in ambulance - Related Data Allergies Allergy/AdvReac Type Severity Reaction Status Date / Time Penicillins Allergy Hives Verified 06/22/16 10:11 Home Meds: Home Meds Pramipexole [Mirapex] 1 mg PO TID 05/31/13 [History] oxyCODONE 10 mg PO Q4H PRN 04/14/15 [History] Nexavar 200 mg PO BID 03/16/16 [History] Rifaximin [Xifaxan] 1 tab PO BID 03/16/16 [History] Bacitracin [Bacitracin Oint] 1 gm TOP TID #1 tube 06/07/16 [Rx] Diphenoxylate HCl/Atropine [Lomotil] 1 tab PO Q6H PRN #16 tablet 07/05/16 [Rx] Ondansetron [IMW: Ondansetron ODT] 4 mg PO .EVERY 6 HOURS PRN #10 tab 07/05/16 [ Rx] Past Medical History HEENT History: Reports: Impaired vision Other HEENT History: adnoids Cardiovascular History: Reports: Arrhythmia, Pacemaker Other Cardiovascular History: Edema Respiratory History: Reports: SOB, Other (see below) Other Respiratory History: "lung capacity of an 78 year old" Gastrointestinal History: Reports: Cirrhosis, Colon polyp, Diverticulosis, Hepatitis, Other (see below) Other Gastrointestinal History: diverticulitis, bleeding ulcer, hep C. Live CA Genitourinary History: Reports: Renal calculus Musculoskeletal History: Reports: Back pain, chronic, Neck pain, chronic Other Musculoskeletal History: laminectomy Neurological History: Reports: Concussion, Other (see below) Other Neuro History: RLS Psychiatric History: Reports: Addiction Endocrine/Metabolic History: Reports: Diabetes, type II, Other (see below) Other Endocrine/Metabolic History: lost 60lbs no longer diabetic Hematologic History: Reports: Anemia, Blood transfusion(s) Immunologic History: Reports: Immunosuppression Other Immunologic History: hepatitis c, chemo Oncologic (Cancer) History: Reports: Liver Other Oncologic History: 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 Terminal CA Dermatologic History: Reports: Cellulitis, Other (see below) Other Dermatologic History: MRSA - Infectious Disease History Infectious Disease History: Reports: Chicken pox - Past Surgical History HEENT Surgical History: Reports: Adenoidectomy, Tonsillectomy Cardiovascular Surgical History: Reports: Other (see below) Other Cardiovascular Surgeries/Procedures: ablation Other GI Surgeries/Procedures: liver cancer. Paracentesis done 03/16/2016 with 3200ml fluid removed. 05/2016 [place] shunt Male Surgical History: Reports: Lithotripsy (ESWL) Neurological Surgical History: Reports: Laminectomy Musculoskeletal Surgical History: Reports: Other (see below) Other Musculoskeletal Surgeries/Procedures:: left bicep repair Social & Family History - Family History Family Medical History: Noncontributory HEENT: Reports: None - Tobacco Use Smoking Status *Q: Current Some Day Smoker Years of Tobacco use: 5 Packs/Tins Daily: 0.5 Used Tobacco, but Quit: No Month Tobacco Last Used: november Second Hand Smoke Exposure: Yes - Caffeine Use Caffeine Use: Reports: Coffee - Alcohol Use Days Per Week of Alcohol Use: 0 - Recreational Drug Use Recreational Drug Use: Yes Drug Use in Last 12 Months: Yes Recreational Drug Type: Reports: Marijuana/Hashish Other Recreational Drug Type: heroin abuse in the past Recreational Drug Use Frequency: Socially Recreational Drug Last Use: 08/18 - Living Situation & Occupation Living situation: Reports: single Occupation: disabled (lives with friends at [facility]. has 6 children in the area.) ED ROS GENERAL - Review of Systems Review Of Systems: Unable To Obtain ED EXAM, GENERAL - Physical Exam Exam: See Below Exam Limited By: Altered mental status General Appearance: lethargic (Initially he appeared to be obtunded but on my exam he awakens to voice and he can answer some simple questions. He doesn't appear to be in distress however he is quite sedated.) Eye Exam: bilateral eye: PERRL, other (There may be slight scleral icterus) Ears: normal external exam Throat/Mouth: Normal inspection Head: atraumatic Neck: supple Respiratory/Chest: lungs clear, chest non-tender, other (There appears to be a pacemaker in the left subclavian area and a structure in the right side of the anterior chest which I think is a portacaval shunt) Cardiovascular: regular rate, rhythm, no murmur Peripheral Pulses: 2+: radial (L), radial (R) (Unable to palpate pedal pulses do to edema) GI/Abdominal: distended (Hypoactive bowel sounds abdomen just mildly tender there is prominent fluid wave consistent with large ascites) Extremities: pedal edema (There is about 3+ pedal and pretibial edema appears to be some venous stasis changes) Neurological: other (Sedated see above) Skin Exam: Other ( see extremities above. No obvious jaundice ) Course - Vital Signs Last Recorded V/S: Last Vital Signs Temp 36.2 C 09/06/16 10:34 Pulse 61 09/06/16 10:34 Resp 16 09/06/16 10:34 BP 139/78 09/06/16 10:34 Pulse Ox 98 09/06/16 10:34 - Orders/Labs/Meds Orders: Active Orders 24 hr Category Date Time Status UA W/MICROSCOPIC [URIN] Urgent Lab 09/06/16 13:11 Ordered Labs: Laboratory Tests 09/06/16 09/06/16 09/06/16 Range/Units 11:08 11:08 11:08 WBC 5.6 (4.5-11.0) K/uL RBC 3.08 L (4.30-5.90) M/uL Hgb 9.1 L (12.0-15.0) g/dL Hct 27.2 L (40.0-54.0) % MCV 88 (80-98) fL MCH 30 (27-31) pg MCHC 34 (32-36) % Plt Count 66 L (150-400) K/uL Neut % (Auto) 69 H (36-66) % Lymph % (Auto) 10 L (24-44) % [place] % (Auto) 14 H (2-6) % Eos % (Auto) 6 H (2-4) % Baso % (Auto) 1 (0-1) % PT (9.5-12.0) sec INR (0.80-1.20) Sodium 142 (140-148) mmol/L Potassium 3.8 (3.6-5.2) mmol/L Chloride 112 H (100-108) mmol/L Carbon Dioxide 21 (21-32) mmol/L Anion Gap 12.8 (5.0-14.0) mmol/L BUN 26 H (7-18) mg/dL Creatinine 0.9 (0.8-1.3) mg/dL Est Cr Clr Drug Dosing 94.49 mL/min Estimated GFR (MDRD) > 60 (>60) Glucose 111 H (74-106) mg/dL Lactic Acid (0.4-2.0) mmol/L Calcium 7.5 L (8.5-10.1) mg/dL Total Bilirubin 1.2 H (0.2-1.0) mg/dL AST 77 H (15-37) U/L ALT 80 H (12-78) U/L Alkaline Phosphatase 69 (46-116) U/L Ammonia 102 H (11-32) mmol/L Total Protein 6.6 (6.4-8.2) g/dL Albumin 1.8 L (3.4-5.0) g/dL Globulin 4.8 H (2.3-3.5) g/dL Albumin/Globulin Ratio 0.4 L (1.2-2.2) 09/06/16 09/06/16 Range/Units 11:08 11:08 WBC (4.5-11.0) K/uL RBC (4.30-5.90) M/uL Hgb (12.0-15.0) g/dL Hct (40.0-54.0) % MCV (80-98) fL MCH (27-31) pg MCHC (32-36) % Plt Count (150-400) K/uL Neut % (Auto) (36-66) % Lymph % (Auto) (24-44) % [place] % (Auto) (2-6) % Eos % (Auto) (2-4) % Baso % (Auto) (0-1) % PT 13.4 H (9.5-12.0) sec INR 1.26 H (0.80-1.20) Sodium (140-148) mmol/L Potassium (3.6-5.2) mmol/L Chloride (100-108) mmol/L Carbon Dioxide (21-32) mmol/L Anion Gap (5.0-14.0) mmol/L BUN (7-18) mg/dL Creatinine (0.8-1.3) mg/dL Est Cr Clr Drug Dosing mL/min Estimated GFR (MDRD) (>60) Glucose (74-106) mg/dL Lactic Acid 1.4 (0.4-2.0) mmol/L Calcium (8.5-10.1) mg/dL Total Bilirubin (0.2-1.0) mg/dL AST (15-37) U/L ALT (12-78) U/L Alkaline Phosphatase (46-116) U/L Ammonia (11-32) mmol/L Total Protein (6.4-8.2) g/dL Albumin (3.4-5.0) g/dL Globulin (2.3-3.5) g/dL Albumin/Globulin Ratio (1.2-2.2) - Re-Assessments/Exams Free Text/Narrative Re-Assessment/Exam: 09/06/16 13:19 The patient has been observed in the emergency department and has not been in any kind of distress. I spoke with Dr. Umaña and he will come to the emergency department shortly to see this patient Departure - Departure Time of Disposition: 13:20 Disposition: Admitted As Inpatient 64 Condition: poor Clinical Impression: Falling, Hepatic encephalopathy, Ascites Liver cancer Qualifiers: Liver malignancy type: unspecified primary liver malignancy Qualified Code(s): C22.8 - Malignant neoplasm of liver, primary, unspecified as to type Forms: ED Department Discharge - My Orders Last 24 Hours: My Active Orders 09/06/16 13:11 UA W/MICROSCOPIC [URIN] Urgent - Assessment/Plan Last 24 Hours: My Active Orders 09/06/16 13:11 UA W/MICROSCOPIC [URIN] Urgent
[2016-09-06] MEDS ORDERED: Sodium Chloride 0.9% 10 ML Syringe FLUSH PRN (15:24)
[2016-09-06] MEDS ORDERED: Atropine/Diphenoxylate 0.025-2.5 MG Tab PO PRN (15:27)
[2016-09-06] MEDS ORDERED: Ondansetron 4 MG Tab.DIS PO PRN (15:27)
--- NOTE | 2016-09-06 15:29 | PCM.HP ---
H&P History of Present Illness - General Date of Service: 09/06/16 Admit Problem/Dx: Admission Diagnosis/Problem Admission Diagnosis/Problem Pain Source of Information: Patient - History of Present Illness Initial Comments - Free Text/Narative: He started feeling sick with weakness for the last 2 days. His abdominal pain has increased to 8/10 dull pain. He has also had diarrhea light yellow in color. Color of urine is normal. Abdomen Pain Score (Numeric/FACES): 7 Bilateral Leg Pain Score (Numeric/FACES): 5 - Related Data Allergies/Adverse Reactions: Allergies Allergy/AdvReac Type Severity Reaction Status Date / Time Penicillins Allergy Hives Verified 06/22/16 10:11 Home Medications: Home Meds Pramipexole [Mirapex] 1 mg PO TID 05/31/13 [History] oxyCODONE 10 mg PO Q4H PRN 04/14/15 [History] Rifaximin [Xifaxan] 1 tab PO BID 03/16/16 [History] Bacitracin [Bacitracin Oint] 1 gm TOP TID #1 tube 06/07/16 [Rx] Diphenoxylate HCl/Atropine [Lomotil] 1 tab PO Q6H PRN #16 tablet 07/05/16 [Rx] Ondansetron [IMW: Ondansetron ODT] 4 mg PO .EVERY 6 HOURS PRN #10 tab 07/05/16 [ Rx] Past Medical History HEENT History: Reports: Impaired vision Other HEENT History: adnoids Cardiovascular History: Reports: Arrhythmia, Pacemaker Other Cardiovascular History: Edema Respiratory History: Reports: SOB, Other (see below) Other Respiratory History: "lung capacity of an 78 year old" Gastrointestinal History: Reports: Cirrhosis, Colon polyp, Diverticulosis, Hepatitis, Other (see below) Other Gastrointestinal History: diverticulitis, bleeding ulcer, hep C. Live [place] Genitourinary History: Reports: Renal calculus Musculoskeletal History: Reports: Back pain, chronic, Neck pain, chronic Other Musculoskeletal History: laminectomy Neurological History: Reports: Concussion, Other (see below) Other Neuro History: RLS Psychiatric History: Reports: Addiction Endocrine/Metabolic History: Reports: Diabetes, type II, Other (see below) Other Endocrine/Metabolic History: lost 60lbs no longer diabetic Hematologic History: Reports: Anemia, Blood transfusion(s) Immunologic History: Reports: Immunosuppression Other Immunologic History: hepatitis c, chemo Oncologic (Cancer) History: Reports: Liver Other Oncologic History: 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 Terminal CA Dermatologic History: Reports: Cellulitis, Other (see below) Other Dermatologic History: MRSA - Infectious Disease History Infectious Disease History: Reports: Chicken pox - Past Surgical History HEENT Surgical History: Reports: Adenoidectomy, Tonsillectomy Cardiovascular Surgical History: Reports: Other (see below) Other Cardiovascular Surgeries/Procedures: ablation Other GI Surgeries/Procedures: liver cancer. Paracentesis done 03/16/2016 with 3200ml fluid removed. 05/2016 [place] shunt Male Surgical History: Reports: Lithotripsy (ESWL) Neurological Surgical History: Reports: Laminectomy Musculoskeletal Surgical History: Reports: Other (see below) Other Musculoskeletal Surgeries/Procedures:: left bicep repair Social & Family History - Family History Family Medical History: Noncontributory HEENT: Reports: None - Tobacco Use Smoking Status *Q: Current Some Day Smoker Years of Tobacco use: 5 Packs/Tins Daily: 0.5 Used Tobacco, but Quit: No Month Tobacco Last Used: november Second Hand Smoke Exposure: Yes - Caffeine Use Caffeine Use: Reports: Coffee - Alcohol Use Days Per Week of Alcohol Use: 0 - Recreational Drug Use Recreational Drug Use: Yes Drug Use in Last 12 Months: Yes Recreational Drug Type: Reports: Marijuana/Hashish Other Recreational Drug Type: heroin abuse in the past Recreational Drug Use Frequency: Socially Recreational Drug Last Use: 08/18 - Living Situation & Occupation Living situation: Reports: single Occupation: disabled (lives with friends at [facility]. has 6 children in the area.) H&P Review of Systems - Review of Systems: Review Of Systems: See Below General: Reports: chills HEENT: Reports: no symptoms Pulmonary: Reports: Cough Cardiovascular: Reports: no symptoms Gastrointestinal: Reports: Diarrhea, Distension Genitourinary: Reports: no symptoms Musculoskeletal: Reports: other (muscle cramping in the legs.) Psychiatric: Reports: depression Neurological: Reports: Difficulty Walking, Weakness, Gait Disturbance Hematologic/Lymphatic: Reports: no symptoms Immunologic: Reports: no symptoms Exam - Exam Exam: See Below - Vital Signs Vital Signs: Last Vital Signs Temp 97.2 F 09/06/16 10:34 Pulse 61 09/06/16 10:34 Resp 16 09/06/16 10:34 BP 139/78 09/06/16 10:34 Pulse Ox 98 09/06/16 10:34 Weight: 224 lb 13.944 oz - Exam General: oriented, moderate distress HEENT: PERRLA, Hearing intact, Mucosa moist & pink, Nares patent, Normal nasal septum, Posterior pharynx clear, Conjunctiva clear, EOMI, EACs clear, TMs clear Neck: supple, trachea midline, 2 Lungs: Clear to auscultation, Normal respiratory effort Cardiovascular: regular rate, regular rhythm Abdomen: organomegaly Back Exam: paraspinal tenderness, vertebral tenderness Peripheral Pulses: 1+: radial (L), radial (R) Skin: other (redness of the legs and edema) Neurological: cranial nerves intact, abnormal gait Neuro Extensive - Mental Status: oriented x3 DTR: 1+: bicep (L), bicep (R), patella (L), patella (R) Psychiatric: depressed - Patient Data Lab Results last 24 hrs: Laboratory Results - last 24 hr 09/06/16 09/06/16 09/06/16 Range/Units 11:08 11:08 11:08 WBC 5.6 (4.5-11.0) K/uL RBC 3.08 L (4.30-5.90) M/uL Hgb 9.1 L (12.0-15.0) g/dL Hct 27.2 L (40.0-54.0) % MCV 88 (80-98) fL MCH 30 (27-31) pg MCHC 34 (32-36) % Plt Count 66 L (150-400) K/uL Neut % (Auto) 69 H (36-66) % Lymph % (Auto) 10 L (24-44) % [place] % (Auto) 14 H (2-6) % Eos % (Auto) 6 H (2-4) % Baso % (Auto) 1 (0-1) % PT (9.5-12.0) sec INR (0.80-1.20) Sodium 142 (140-148) mmol/L Potassium 3.8 (3.6-5.2) mmol/L Chloride 112 H (100-108) mmol/L Carbon Dioxide 21 (21-32) mmol/L Anion Gap 12.8 (5.0-14.0) mmol/L BUN 26 H (7-18) mg/dL Creatinine 0.9 (0.8-1.3) mg/dL Est Cr Clr Drug Dosing 94.49 mL/min Estimated GFR (MDRD) > 60 (>60) Glucose 111 H (74-106) mg/dL Lactic Acid (0.4-2.0) mmol/L Calcium 7.5 L (8.5-10.1) mg/dL Total Bilirubin 1.2 H (0.2-1.0) mg/dL AST 77 H (15-37) U/L ALT 80 H (12-78) U/L Alkaline Phosphatase 69 (46-116) U/L Ammonia 102 H (11-32) mmol/L Total Protein 6.6 (6.4-8.2) g/dL Albumin 1.8 L (3.4-5.0) g/dL Globulin 4.8 H (2.3-3.5) g/dL Albumin/Globulin Ratio 0.4 L (1.2-2.2) Urine Color Urine Appearance Urine pH (4.5-8.0) Ur Specific [place] (1.008-1.030) Urine Protein (NEGATIVE) mg/dL Urine Glucose (UA) (NEGATIVE) mg/dL Urine Ketones (NEGATIVE) mg/dL Urine Occult Blood (NEGATIVE) Urine Nitrite (NEGAITVE) Urine Bilirubin (NEGATIVE) Urine Urobilinogen (NORMAL) mg/dL Ur Leukocyte Esterase (NEGATIVE) Urine RBC (0-5) Urine WBC (0-5) Ur Epithelial Cells Amorphous Sediment Urine Bacteria Urine Mucus 09/06/16 09/06/16 09/06/16 Range/Units 11:08 11:08 13:11 WBC (4.5-11.0) K/uL RBC (4.30-5.90) M/uL Hgb (12.0-15.0) g/dL Hct (40.0-54.0) % MCV (80-98) fL MCH (27-31) pg MCHC (32-36) % Plt Count (150-400) K/uL Neut % (Auto) (36-66) % Lymph % (Auto) (24-44) % [place] % (Auto) (2-6) % Eos % (Auto) (2-4) % Baso % (Auto) (0-1) % PT 13.4 H (9.5-12.0) sec INR 1.26 H (0.80-1.20) Sodium (140-148) mmol/L Potassium (3.6-5.2) mmol/L Chloride (100-108) mmol/L Carbon Dioxide (21-32) mmol/L Anion Gap (5.0-14.0) mmol/L BUN (7-18) mg/dL Creatinine (0.8-1.3) mg/dL Est Cr Clr Drug Dosing mL/min Estimated GFR (MDRD) (>60) Glucose (74-106) mg/dL Lactic Acid 1.4 (0.4-2.0) mmol/L Calcium (8.5-10.1) mg/dL Total Bilirubin (0.2-1.0) mg/dL AST (15-37) U/L ALT (12-78) U/L Alkaline Phosphatase (46-116) U/L Ammonia (11-32) mmol/L Total Protein (6.4-8.2) g/dL Albumin (3.4-5.0) g/dL Globulin (2.3-3.5) g/dL Albumin/Globulin Ratio (1.2-2.2) Urine Color Yellow Urine Appearance Slightly cloudy Urine pH 6.0 (4.5-8.0) Ur Specific [place] 1.020 (1.008-1.030) Urine Protein Trace (NEGATIVE) mg/dL Urine Glucose (UA) Normal (NEGATIVE) mg/dL Urine Ketones Negative (NEGATIVE) mg/dL Urine Occult Blood Moderate (NEGATIVE) Urine Nitrite Negative (NEGAITVE) Urine Bilirubin Small (NEGATIVE) Urine Urobilinogen 4 (NORMAL) mg/dL Ur Leukocyte Esterase Negative (NEGATIVE) Urine RBC 0-5 (0-5) Urine WBC Not seen (0-5) Ur Epithelial Cells Not seen Amorphous Sediment Not seen Urine Bacteria Not seen Urine Mucus Few Result Diagrams: 09/06/16 11:08 09/06/16 11:08 *Q Meaningful Use (ADM) - VTE *Q VTE Criteria *Q: - Stroke *Q Stroke Criteria *Q: - AMI *Q AMI Criteria *Q: Problem List Initiated/Reviewed/Updated: Yes Orders Last 24hrs: Active Orders 24 hr Category Date Time Status Patient Status [ADT] Routine ADT 09/06/16 15:24 Ordered Ambulate [RC] QID Care 09/06/16 15:24 Ordered Height and Weight [RC] DAILY Care 09/06/16 15:24 Ordered Intake and Output [RC] QSHIFT Care 09/06/16 15:27 Ordered Oxygen Therapy [RC] PRN Care 09/06/16 15:24 Ordered Up With Assistance [RC] ASDIRECTED Care 09/06/16 15:24 Ordered Up to Chair [RC] QID Care 09/06/16 15:24 Ordered VTE/DVT Education [RC] Per Unit Routine Care 09/06/16 15:24 Ordered Vital Signs [RC] Q4H Care 09/06/16 15:24 Ordered Regular Diet [DIET] Diet 09/06/16 Dinner Ordered Atropine/Diphenoxylate [Lomotil 0.025-2.5 MG] Med 09/06/16 15:27 Ordered 1 tab PO Q6H PRN Bacitracin [Bacitracin Oint] Med 09/06/16 21:00 Ordered 1 gm TOP TID Nexavar Med 09/06/16 21:00 Ordered 200 mg PO BID Ondansetron [Zofran ODT] Med 09/06/16 15:27 Ordered 4 mg PO .EVERY 6 HOURS PRN Pramipexole [Mirapex] Med 09/06/16 21:00 Ordered 1 mg PO TID Rifaximin [Xifaxan] Med 09/06/16 21:00 Ordered 1 tab PO BID Sodium Chloride 0.9% [Saline Flush] Med 09/06/16 15:24 Ordered 10 ml FLUSH ASDIRECTED PRN oxyCODONE Med 09/06/16 15:27 Ordered 10 mg PO Q4H PRN Saline Lock Insert [OM.PC] Routine Oth 09/06/16 15:24 Ordered Resuscitation Status Routine Resus Stat 09/06/16 15:24 Ordered Assessment/Plan Comment:: Assessment/plan: #1. Adenocarcinoma of the liver with metastasis. This has been a progressive problem with increased and recurrent abdominal fluid. He does have a port to remove fluid. His ammonia level is 102 with Total bili of 1.2. #2. Hepatic failure. This is secondary to liver cancer. With hepatic encephalopathy. #3. Restless Leg Syndrome. He is taking Mirapex for control. #4. Hypertension, his blood pressure is stable but low. #5. Hepatitis C. treated. #6. Narcotic withdrawal. He has a history of drug abuse and expect Meth usuage and THC
[2016-09-06] MEDS: Pramipexole 0.5 MG Tab PO SCH ×2 (16:40→21:20)
[2016-09-06] MEDS: oxyCODONE 5 MG Tab PO PRN (17:19)
[2016-09-06] MEDS ORDERED: NEXAVAR 200 MG PO SCH (21:00)
[2016-09-06] MEDS ORDERED: PRAMIPEXOLE 1 MG PO SCH (21:00)
[2016-09-06] MEDS ORDERED: Pramipexole 0.5 MG Tab PO SCH (21:00)
[2016-09-06] MEDS: Rifaximin 550 MG Tab PO SCH (21:19)
[2016-09-06] MEDS: Bacitracin Oint 28.35 GM Tube TOP SCH (21:21)
[2016-09-07] MEDS: Bacitracin Oint 28.35 GM Tube TOP SCH ×3 (10:15→20:29)
[2016-09-07] MEDS: Pramipexole 0.5 MG Tab PO SCH ×3 (10:15→20:31)
[2016-09-07] MEDS: Rifaximin 550 MG Tab PO SCH ×2 (10:16→20:31)
[2016-09-07] MEDS: oxyCODONE 5 MG Tab PO PRN ×3 (10:21→20:34)
--- NOTE | 2016-09-07 23:47 | PCM.PN ---
- General Info Date of Service: 09/07/16 Admission Dx/Problem (Free Text): Jonathan continues to have weakness and he said he is decided that he would go on hospice and [facility] Functional Status: Reports: pain controlled - Review of Systems General: Reports: Weakness, Fatigue, Malaise HEENT: Reports: no symptoms Pulmonary: Reports: cough Cardiovascular: Reports: No Symptoms Gastrointestinal: Reports: Nausea Genitourinary: Reports: frequency Musculoskeletal: Reports: back pain Skin: Reports: no symptoms Neurological: Reports: Headache, Gait Disturbance Psychiatric: Reports: depression, anxiety - Patient Data Vitals - most recent: Last Vital Signs Temp 99.2 F 09/07/16 22:52 Pulse 71 09/07/16 22:52 Resp 20 09/07/16 22:52 BP 166/82 H 09/07/16 22:52 Pulse Ox 96 09/07/16 22:52 Weight - most recent: 227 lb 4.745 oz I&O - last 24 hours: Intake & Output 09/07/16 09/07/16 09/08/16 14:59 22:59 06:59 Intake Total 1300 Balance 1300 Lab Results last 24 hrs: Laboratory Results - last 24 hr 09/07/16 Range/Units 16:26 Urine Opiates Screen Positive H (NEGATIVE) Ur Oxycodone Screen Negative (NEGATIVE) Urine Methadone Screen Negative (NEGATIVE) Ur Propoxyphene Screen Negative (NEGATIVE) Ur Barbiturates Screen Negative (NEGATIVE) Ur Tricyclics Screen Negative (NEGATIVE) Ur Phencyclidine Scrn Negative (NEGATIVE) Ur Amphetamine Screen Positive H (NEGATIVE) U Methamphetamines Scrn Positive H (NEGATIVE) Urine MDMA Screen Negative (NEGATIVE) U Benzodiazepines Scrn Negative (NEGATIVE) U Cocaine Metab Screen Negative (NEGATIVE) U Marijuana (THC) Screen Positive H (NEGATIVE) Med Orders - Current: Current Medications Bacitracin (Bacitracin Oint) 0 gm TOP TID KRYS Last Admin: 09/07/16 20:29 Dose: 1 applic Diphenoxylate HCl/Atropine (Lomotil 0.025-2.5 Mg) 1 tab PO Q6H PRN PRN Reason: Diarrhea Last Admin: 09/07/16 10:21 Dose: 1 tab Ondansetron HCl (Zofran Odt) 4 mg PO Q6H PRN PRN Reason: Nausea or vomiting Oxycodone HCl (Oxycodone) 10 mg PO Q4H PRN PRN Reason: Pain Last Admin: 09/07/16 20:34 Dose: 10 mg Pramipexole Dihydrochloride (Mirapex) 1 mg PO TID [facility] Last Admin: 09/07/16 20:31 Dose: 1 mg Rifaximin (Xifaxan) 550 mg PO BID [facility] Last Admin: 09/07/16 20:31 Dose: 550 mg Sodium Chloride (Saline Flush) 10 ml FLUSH ASDIRECTED PRN PRN Reason: Keep Vein Open - Exam General: alert, oriented HEENT: Pupils equal, Pupils reactive, EOMI, Mucous membr. moist/pink Lungs: Clear to auscultation Cardiovascular: Regular Rate, Regular Rhythm Abdomen: tenderness, distension, CVA tenderness Back Exam: normal inspection, full range of motion Extremities: calf tenderness, edema Peripheral Pulses: 1+: radial (L), radial (R) Skin: warm, dry, intact Psy/Mental Status: labile mood, depressed - Problem List Review Problem List Initiated/Reviewed/Updated: Yes - My Orders Last 24 Hours: My Active Orders 09/07/16 16:54 Code Status [Resuscitation Status] Routine 09/07/16 20:59 SCD [Sequential Compression Device] [OM.PC] Routine - Plan Plan:: Assessment/plan: #1. Adenocarcinoma of the liver with metastasis. This has been a progressive problem with increased and recurrent abdominal fluid. He does have a port to remove fluid. His ammonia level is 102 with Total bili of 1.2 yesterday. #2. Hepatic failure. This is secondary to liver cancer. With hepatic encephalopathy. #3. Restless Leg Syndrome. He is taking Mirapex for control. #4. Hypertension, his blood pressure is stable but low. #5. Hepatitis C. treated. #6. Narcotic withdrawal. He has a history of drug abuse and expect Meth usuage and THC
[2016-09-08] MEDS: oxyCODONE 5 MG Tab PO PRN ×3 (09:43→20:06)
[2016-09-08] MEDS: Rifaximin 550 MG Tab PO SCH ×2 (09:43→20:01)
[2016-09-08] MEDS: Pramipexole 0.5 MG Tab PO SCH ×3 (09:43→20:01)
[2016-09-08] MEDS: Bacitracin Oint 28.35 GM Tube TOP SCH ×3 (09:45→20:01)
--- NOTE | 2016-09-08 15:33 | PCM.PN ---
- General Info Date of Service: 09/08/16 Admission Dx/Problem (Free Text): Abd. pain 8/10 dull and constant. Functional Status: Reports: pain controlled - Review of Systems General: Reports: Weakness HEENT: Reports: no symptoms Pulmonary: Reports: shortness of breath, cough Cardiovascular: Reports: Dyspnea on Exertion Gastrointestinal: Reports: Abdominal pain, Diarrhea Genitourinary: Reports: no symptoms Musculoskeletal: Reports: joint pain (knees and ankle pain) Skin: Reports: rash (legs) Neurological: Reports: Numbness, Difficulty Walking, Weakness, Gait Disturbance - Patient Data Vitals - most recent: Last Vital Signs Temp 99.1 F 09/08/16 14:54 Pulse 68 09/08/16 14:54 Resp 16 09/08/16 14:54 BP 138/75 09/08/16 14:54 Pulse Ox 96 09/08/16 14:54 Weight - most recent: 227 lb 4.745 oz I&O - last 24 hours: Intake & Output 09/08/16 09/08/16 09/08/16 06:59 14:59 22:59 Intake Total 1360 480 Balance 1360 480 Lab Results last 24 hrs: Laboratory Results - last 24 hr 09/07/16 Range/Units 16:26 Urine Opiates Screen Positive H (NEGATIVE) Ur Oxycodone Screen Negative (NEGATIVE) Urine Methadone Screen Negative (NEGATIVE) Ur Propoxyphene Screen Negative (NEGATIVE) Ur Barbiturates Screen Negative (NEGATIVE) Ur Tricyclics Screen Negative (NEGATIVE) Ur Phencyclidine Scrn Negative (NEGATIVE) Ur Amphetamine Screen Positive H (NEGATIVE) U Methamphetamines Scrn Positive H (NEGATIVE) Urine MDMA Screen Negative (NEGATIVE) U Benzodiazepines Scrn Negative (NEGATIVE) U Cocaine Metab Screen Negative (NEGATIVE) U Marijuana (THC) Screen Positive H (NEGATIVE) Med Orders - Current: Current Medications Bacitracin (Bacitracin Oint) 0 gm TOP TID [facility] Last Admin: 09/08/16 15:11 Dose: 1 applic Diphenoxylate HCl/Atropine (Lomotil 0.025-2.5 Mg) 1 tab PO Q6H PRN PRN Reason: Diarrhea Last Admin: 09/07/16 10:21 Dose: 1 tab Ondansetron HCl (Zofran Odt) 4 mg PO Q6H PRN PRN Reason: Nausea or vomiting Oxycodone HCl (Oxycodone) 10 mg PO Q4H PRN PRN Reason: Pain Last Admin: 09/08/16 15:10 Dose: 10 mg Pramipexole Dihydrochloride (Mirapex) 1 mg PO TID [facility] Last Admin: 09/08/16 15:10 Dose: 1 mg Rifaximin (Xifaxan) 550 mg PO BID [facility] Last Admin: 09/08/16 09:43 Dose: 550 mg Sodium Chloride (Saline Flush) 10 ml FLUSH ASDIRECTED PRN PRN Reason: Keep Vein Open - Exam General: oriented, cooperative, moderate distress Neck: supple Lungs: Clear to auscultation, Normal respiratory effort Cardiovascular: Regular Rate, Regular Rhythm Abdomen: tenderness, distension Peripheral Pulses: 2+: radial (L), radial (R) Skin: warm, dry, rash (rash on legs) - Problem List Review Problem List Initiated/Reviewed/Updated: Yes - My Orders Last 24 Hours: My Active Orders 09/07/16 16:54 Code Status [Resuscitation Status] Routine 09/07/16 20:59 SCD [Sequential Compression Device] [OM.PC] Routine 09/09/16 05:00 Weight Daily [Height and Weight] [RC] 0500 - Plan Plan:: Assessment/plan: #1. Adenocarcinoma of the liver with metastasis. This has been a progressive problem with increased and recurrent abdominal fluid. He does have a port to remove fluid. His ammonia level is 102 with Total bili of 1.2 yesterday. #2. Hepatic failure. This is secondary to liver cancer. With hepatic encephalopathy. #3. Restless Leg Syndrome. He is taking Mirapex for control. #4. Hypertension, his blood pressure is stable but low. #5. Hepatitis C. treated. #6. Positive for Meth. Will continue to watch for withdraw. He also uses THC on a regular basis.
[2016-09-09] MEDS: Bacitracin Oint 28.35 GM Tube TOP SCH ×3 (09:19→20:52)
[2016-09-09] MEDS: Pramipexole 0.5 MG Tab PO SCH ×3 (09:19→20:52)
[2016-09-09] MEDS: Rifaximin 550 MG Tab PO SCH ×2 (09:19→20:53)
[2016-09-09] MEDS: oxyCODONE 5 MG Tab PO PRN ×4 (09:25→23:52)
--- NOTE | 2016-09-09 22:25 | PCM.PN ---
- General Info Date of Service: 09/09/16 Admission Dx/Problem (Free Text): He is laying in bed there is no evidence of any withdrawals at the present time. He still has weakness. He says he is pumping his belly on a regular basis. Functional Status: Reports: pain controlled - Review of Systems General: Reports: Weakness, Fatigue, Malaise Pulmonary: Reports: shortness of breath, cough Cardiovascular: Reports: No Symptoms Gastrointestinal: Reports: Abdominal pain, Decreased appetite Genitourinary: Reports: no symptoms Musculoskeletal: Reports: no symptoms Skin: Reports: no symptoms Neurological: Reports: No Symptoms Psychiatric: Reports: no symptoms - Patient Data Vitals - most recent: Last Vital Signs Temp 98.5 F 09/09/16 22:10 Pulse 67 09/09/16 22:10 Resp 16 09/09/16 22:10 BP 139/72 09/09/16 22:10 Pulse Ox 96 09/09/16 22:10 Weight - most recent: 221 lb 4.8 oz I&O - last 24 hours: Intake & Output 09/09/16 09/09/16 09/09/16 06:59 14:59 22:59 Intake Total 240 1200 Balance 240 1200 Med Orders - Current: Current Medications Bacitracin (Bacitracin Oint) 0 gm TOP TID [facility] Last Admin: 09/09/16 20:52 Dose: 1 applic Diphenoxylate HCl/Atropine (Lomotil 0.025-2.5 Mg) 1 tab PO Q6H PRN PRN Reason: Diarrhea Last Admin: 09/07/16 10:21 Dose: 1 tab Ondansetron HCl (Zofran Odt) 4 mg PO Q6H PRN PRN Reason: Nausea or vomiting Oxycodone HCl (Oxycodone) 10 mg PO Q4H PRN PRN Reason: Pain Last Admin: 09/09/16 19:54 Dose: 10 mg Pramipexole Dihydrochloride (Mirapex) 1 mg PO TID [facility] Last Admin: 09/09/16 20:52 Dose: 1 mg Rifaximin (Xifaxan) 550 mg PO BID [facility] Last Admin: 09/09/16 20:53 Dose: 550 mg Sodium Chloride (Saline Flush) 10 ml FLUSH ASDIRECTED PRN PRN Reason: Keep Vein Open - Exam Quality Assessment: supplemental oxygen General: alert, oriented, cooperative, moderate distress HEENT: Pupils reactive Neck: supple Lungs: Clear to auscultation, Normal respiratory effort Cardiovascular: Regular Rate (right-handed), Regular Rhythm Abdomen: bowel sounds present (Physical:), soft, no tenderness, no distension Back Exam: normal inspection, full range of motion Extremities: calf tenderness, edema Peripheral Pulses: 1+: radial (L), radial (R) Skin: warm Neurological: no new focal deficit - Problem List Review Problem List Initiated/Reviewed/Updated: Yes - My Orders Last 24 Hours: My Active Orders 09/09/16 05:00 Weight Daily [Height and Weight] [RC] 0500 - Plan Plan:: Assessment/plan: #1. Adenocarcinoma of the liver with metastasis. This has been a progressive problem with increased and recurrent abdominal fluid. He does have a port to remove fluid. His ammonia level is 102 with Total bili of 1.2 yesterday. #2. Hepatic failure. This is secondary to liver cancer. With hepatic encephalopathy. #3. Restless Leg Syndrome. He is taking Mirapex for control. #4. Hypertension, his blood pressure is stable but low. #5. Hepatitis C. treated. #6. Positive for Meth. Will continue to watch for withdraw. He also uses THC on a regular basis.
[2016-09-10] MEDS: oxyCODONE 5 MG Tab PO PRN ×2 (03:56→15:31)
[2016-09-10] MEDS: Rifaximin 550 MG Tab PO SCH ×2 (08:27→20:19)
[2016-09-10] MEDS: Pramipexole 0.5 MG Tab PO SCH ×3 (08:27→20:19)
[2016-09-10] MEDS: Bacitracin Oint 28.35 GM Tube TOP SCH ×3 (08:28→20:19)
--- NOTE | 2016-09-10 15:09 | PCM.PN ---
- General Info Date of Service: 09/10/16 Admission Dx/Problem (Free Text): He's feeling much better has more strength then he had yesterday. He continues to have pain in the abdomen and he is pumping out the fluid. Functional Status: Reports: pain controlled - Review of Systems General: Reports: Weakness, Fatigue HEENT: Reports: no symptoms Pulmonary: Reports: no symptoms Cardiovascular: Reports: No Symptoms Gastrointestinal: Reports: No symptoms Genitourinary: Reports: no symptoms Musculoskeletal: Reports: no symptoms Skin: Reports: rash (Both legs are swollen and the left leg is greater than the right) Psychiatric: Reports: no symptoms - Patient Data Vitals - most recent: Last Vital Signs Temp 99.4 F 09/10/16 14:33 Pulse 67 09/10/16 14:33 Resp 18 09/10/16 14:33 BP 151/75 H 09/10/16 14:33 Pulse Ox 97 09/10/16 14:33 Weight - most recent: 221 lb 4.8 oz I&O - last 24 hours: Intake & Output 09/10/16 09/10/16 09/10/16 06:59 14:59 22:59 Intake Total 600 480 Balance 600 480 Med Orders - Current: Current Medications Bacitracin (Bacitracin Oint) 0 gm TOP TID [facility] Last Admin: 09/10/16 14:41 Dose: 2 applic Diphenoxylate HCl/Atropine (Lomotil 0.025-2.5 Mg) 1 tab PO Q6H PRN PRN Reason: Diarrhea Last Admin: 09/07/16 10:21 Dose: 1 tab Ondansetron HCl (Zofran Odt) 4 mg PO Q6H PRN PRN Reason: Nausea or vomiting Oxycodone HCl (Oxycodone) 10 mg PO Q4H PRN PRN Reason: Pain Last Admin: 09/10/16 03:56 Dose: 10 mg Pramipexole Dihydrochloride (Mirapex) 1 mg PO TID [facility] Last Admin: 09/10/16 14:40 Dose: 1 mg Rifaximin (Xifaxan) 550 mg PO BID [facility] Last Admin: 09/10/16 08:27 Dose: 550 mg Sodium Chloride (Saline Flush) 10 ml FLUSH ASDIRECTED PRN PRN Reason: Keep Vein Open - Exam General: alert, oriented, cooperative, mild distress HEENT: Pupils equal, Pupils reactive, EOMI, Mucous membr. moist/pink Neck: supple Lungs: Clear to auscultation, Normal respiratory effort Cardiovascular: Regular Rate, Regular Rhythm Abdomen: bowel sounds present, tenderness, distension Back Exam: normal inspection Extremities: edema Skin: warm Psy/Mental Status: alert - Problem List Review Problem List Initiated/Reviewed/Updated: Yes - Plan Plan:: Assessment/plan: #1. Adenocarcinoma of the liver with metastasis. This has been a progressive problem with increased and recurrent abdominal fluid. He does have a port to remove fluid. His ammonia level was 102 with Total bili of 1.2. will repeat the blood work in the morning. #2. Hepatic failure. This is secondary to liver cancer. With hepatic encephalopathy. #3. Restless Leg Syndrome. He is taking Mirapex for control. #4. Hypertension, his blood pressure is stable but low. #5. Hepatitis C. treated. #6. Positive for Meth. Will continue to watch for withdraw. He also uses THC on a regular basis. There is no evidence of withdrawals at the present time.
[2016-09-11] MEDS: Rifaximin 550 MG Tab PO SCH (08:17)
[2016-09-11] MEDS: Pramipexole 0.5 MG Tab PO SCH ×2 (08:17→15:00)
[2016-09-11] MEDS: Bacitracin Oint 28.35 GM Tube TOP SCH ×2 (08:18→14:59)
[2016-09-11] MEDS: oxyCODONE 5 MG Tab PO PRN (08:23)
[2016-09-11 11:21] VITALS: BP 144/79
--- NOTE | 2016-09-11 14:24 | PCM.DCSUM1 ---
Discharge Summary - Hospital Course HPI Initial Comments: While in the hospital he became stronger and his abdomen improved and abdominal girth. His fluid intake improved and is fluid balance improved with IV fluids and food. - Discharge Data Discharge Date: 09/11/16 Discharge Disposition: Home, Self-Care 01 Condition: Fair - Patient Summary/Data Hospital Course: He Came and He Was Dehydrated and we hydrated him. He Had Good Food and We Pumped the fluid from the abdomen and his abdomen size did come down while he is in the He is weak and unable to properly care for h He is unable to have long-term placement at the present tie problems. He'll be going home with a possibility once the insurance is resolved that he can go to a nursing for proper care and go on hospice. His laboratory analysis all improved and his ambulation improved and the swelling of the legs also improved. When he goes home today I told him to elevate his legs to get rid of some of the fluid by gravity. - Patient Instructions Diet: Usual Diet as Tolerated, Diabetic Diet Activity: As Tolerated - Discharge Plan Home Medications: Home Meds Pramipexole [Mirapex] 1 mg PO TID 05/31/13 [History] oxyCODONE 10 mg PO Q4H PRN 04/14/15 [History] Rifaximin [Xifaxan] 1 tab PO BID 03/16/16 [History] Bacitracin [Bacitracin Oint] 1 gm TOP TID #1 tube 06/07/16 [Rx] Diphenoxylate HCl/Atropine [Lomotil] 1 tab PO Q6H PRN #16 tablet 07/05/16 [Rx] Ondansetron [IMW: Ondansetron ODT] 4 mg PO .EVERY 6 HOURS PRN #10 tab 07/05/16 [ Rx] Referrals: PCP,None [Primary Care Provider] - - Discharge Summary/Plan Comment DC Time >30 min.: No Discharge Summary/Plan Comment: assessment/plan: Liver failure we will continue with obs overall prognosis is poor secondary For cancer of the liver. His hepatitis C is stable. His blood pressure need to continue Certainly he is getting weaker and weaker. I will reevaluate in the office in one week. Restless leg syndrome condition stable with supplies. - Patient Data Vitals - Most Recent: Last Vital Signs Temp 98.3 F 09/11/16 11:00 Pulse 79 03/20/17 11:00 Resp 20 09/11/16 11:00 BP 144/79 H 09/11/16 11:00 Pulse Ox 97 09/11/16 11:00 Weight - Most Recent: 227 lb 4.8 oz I&O - Last 24 hours: Intake & Output 09/10/16 09/11/16 09/11/16 22:59 06:59 14:59 Intake Total 600 360 720 Balance 600 360 720 Lab Results - Last 24 hrs: Laboratory Results - last 24 hr 09/11/16 09/11/16 09/11/16 Range/Units 07:30 07:30 07:30 WBC 5.4 (4.5-11.0) K/uL RBC 3.14 L (4.30-5.90) M/uL Hgb 9.1 L (12.0-15.0) g/dL Hct 27.9 L (40.0-54.0) % MCV 89 (80-98) fL MCH 29 (27-31) pg MCHC 33 (32-36) % Plt Count 63 L (150-400) K/uL Neut % (Auto) 63 (36-66) % Lymph % (Auto) 14 L (24-44) % [place] % (Auto) 12 H (2-6) % Eos % (Auto) 10 H (2-4) % Baso % (Auto) 1 (0-1) % Sodium 137 L (140-148) mmol/L Potassium 4.2 (3.6-5.2) mmol/L Chloride 105 (100-108) mmol/L Carbon Dioxide 25 (21-32) mmol/L Anion Gap 11.2 (5.0-14.0) mmol/L BUN 23 H (7-18) mg/dL Creatinine 0.9 (0.8-1.3) mg/dL Est Cr Clr Drug Dosing 94.49 mL/min Estimated GFR (MDRD) > 60 (>60) Glucose 134 H (74-106) mg/dL Calcium 7.2 L (8.5-10.1) mg/dL Total Bilirubin 1.1 H (0.2-1.0) mg/dL AST 82 H (15-37) U/L ALT 76 (12-78) U/L Alkaline Phosphatase 87 (46-116) U/L Ammonia 38 H (11-32) mmol/L Total Protein 6.8 (6.4-8.2) g/dL Albumin 1.8 L (3.4-5.0) g/dL Globulin 5.0 H (2.3-3.5) g/dL Albumin/Globulin Ratio 0.4 L (1.2-2.2) Med Orders - Current: Current Medications Bacitracin (Bacitracin Oint) 0 gm TOP TID [facility] Last Admin: 09/11/16 08:18 Dose: 1 applic Diphenoxylate HCl/Atropine (Lomotil 0.025-2.5 Mg) 1 tab PO Q6H PRN PRN Reason: Diarrhea Last Admin: 09/07/16 10:21 Dose: 1 tab Ondansetron HCl (Zofran Odt) 4 mg PO Q6H PRN PRN Reason: Nausea or vomiting Oxycodone HCl (Oxycodone) 10 mg PO Q4H PRN PRN Reason: Pain Last Admin: 09/11/16 08:23 Dose: 10 mg Pramipexole Dihydrochloride (Mirapex) 1 mg PO TID [facility] Last Admin: 09/11/16 08:17 Dose: 1 mg Rifaximin (Xifaxan) 550 mg PO BID [facility] Last Admin: 09/11/16 08:17 Dose: 550 mg Sodium Chloride (Saline Flush) 10 ml FLUSH ASDIRECTED PRN PRN Reason: Keep Vein Open *Q Meaningful Use (DIS) - VTE *Q VTE Criteria *Q: - Stroke *Q Stroke Criteria *Q: - AMI *Q AMI Criteria *Q:
--- NOTE | 2016-09-11 14:24 | PCM.PN ---
- General Info Date of Service: 09/11/16 Admission Dx/Problem (Free Text): Jonathan comes in in a weakened condition unable to care for himself and is lethargic. He is having difficult time walking. Functional Status: Reports: pain controlled - Review of Systems General: Reports: Weakness, Fatigue HEENT: Reports: no symptoms Pulmonary: Reports: no symptoms Cardiovascular: Reports: No Symptoms Gastrointestinal: Reports: Constipation, Diarrhea Genitourinary: Reports: no symptoms Musculoskeletal: Reports: joint pain Skin: Reports: no symptoms Neurological: Reports: Difficulty Walking, Weakness, Gait Disturbance Psychiatric: Reports: depression - Patient Data Vitals - most recent: Last Vital Signs Temp 98.3 F 09/11/16 11:00 Pulse 79 09/11/16 11:00 Resp 20 09/11/16 11:00 BP 144/79 H 09/11/16 11:00 Pulse Ox 97 09/11/16 11:00 Weight - most recent: 227 lb 4.8 oz I&O - last 24 hours: Intake & Output 09/10/16 09/11/16 09/11/16 22:59 06:59 14:59 Intake Total 600 360 720 Balance 600 360 720 Lab Results last 24 hrs: Laboratory Results - last 24 hr 09/11/16 09/11/16 09/11/16 Range/Units 07:30 07:30 07:30 WBC 5.4 (4.5-11.0) K/uL RBC 3.14 L (4.30-5.90) M/uL Hgb 9.1 L (12.0-15.0) g/dL Hct 27.9 L (40.0-54.0) % MCV 89 (80-98) fL MCH 29 (27-31) pg MCHC 33 (32-36) % Plt Count 63 L (150-400) K/uL Neut % (Auto) 63 (36-66) % Lymph % (Auto) 14 L (24-44) % [place] % (Auto) 12 H (2-6) % Eos % (Auto) 10 H (2-4) % Baso % (Auto) 1 (0-1) % Sodium 137 L (140-148) mmol/L Potassium 4.2 (3.6-5.2) mmol/L Chloride 105 (100-108) mmol/L Carbon Dioxide 25 (21-32) mmol/L Anion Gap 11.2 (5.0-14.0) mmol/L BUN 23 H (7-18) mg/dL Creatinine 0.9 (0.8-1.3) mg/dL Est Cr Clr Drug Dosing 94.49 mL/min Estimated GFR (MDRD) > 60 (>60) Glucose 134 H (74-106) mg/dL Calcium 7.2 L (8.5-10.1) mg/dL Total Bilirubin 1.1 H (0.2-1.0) mg/dL AST 82 H (15-37) U/L ALT 76 (12-78) U/L Alkaline Phosphatase 87 (46-116) U/L Ammonia 38 H (11-32) mmol/L Total Protein 6.8 (6.4-8.2) g/dL Albumin 1.8 L (3.4-5.0) g/dL Globulin 5.0 H (2.3-3.5) g/dL Albumin/Globulin Ratio 0.4 L (1.2-2.2) Med Orders - Current: Current Medications Bacitracin (Bacitracin Oint) 0 gm TOP TID [facility] Last Admin: 09/11/16 08:18 Dose: 1 applic Diphenoxylate HCl/Atropine (Lomotil 0.025-2.5 Mg) 1 tab PO Q6H PRN PRN Reason: Diarrhea Last Admin: 09/07/16 10:21 Dose: 1 tab Ondansetron HCl (Zofran Odt) 4 mg PO Q6H PRN PRN Reason: Nausea or vomiting Oxycodone HCl (Oxycodone) 10 mg PO Q4H PRN PRN Reason: Pain Last Admin: 09/11/16 08:23 Dose: 10 mg Pramipexole Dihydrochloride (Mirapex) 1 mg PO TID [facility] Last Admin: 09/11/16 08:17 Dose: 1 mg Rifaximin (Xifaxan) 550 mg PO BID [facility] Last Admin: 09/11/16 08:17 Dose: 550 mg Sodium Chloride (Saline Flush) 10 ml FLUSH ASDIRECTED PRN PRN Reason: Keep Vein Open - Exam General: oriented, cooperative, mild distress HEENT: Pupils equal, Pupils reactive Neck: supple Lungs: Clear to auscultation, Normal respiratory effort Cardiovascular: Regular Rate, Regular Rhythm Abdomen: bowel sounds present, distension (Male) Exam: No hernia Back Exam: decreased range of motion Extremities: edema, other (there is significant swelling and increased warmth of the left leg right is evidence of edema with less swelling) Peripheral Pulses: 1+: radial (L), radial (R) Skin: warm, dry, intact Neurological: no new focal deficit Psy/Mental Status: depressed - Problem List Review Problem List Initiated/Reviewed/Updated: Yes - My Orders Last 24 Hours: My Active Orders 09/11/16 14:23 Ready for Discharge [RC] PER UNIT ROUTINE - Plan Plan:: Assessment/plan: #1. Adenocarcinoma of the liver with metastasis. This has been a progressive problem with increased and recurrent abdominal fluid. He does have a port to remove fluid. His ammonia level was 102 with Total bili of 1.2. will repeat the blood work in the morning. #2. Hepatic failure. This is secondary to liver cancer. With hepatic encephalopathy. #3. Restless Leg Syndrome. He is taking Mirapex for control. #4. Hypertension, his blood pressure is stable but low. #5. Hepatitis C. treated. #6. Positive for Meth. There is no evidence of withdrawals at the present time.
== END 2016-09-11 15:00 | disposition home or self-care (01) | DRG 436 ==
LOC: JP.ED 10:33 → JP.MS 15:24
PROVIDERS: ADMIT Internal Medicine; ATTEND Internal Medicine
DX: C22.7 Other specified carcinomas of liver (principal); R18.0 Malignant ascites; C79.9 Secondary malignant neoplasm of unspecified site; F11.23 Opioid dependence with withdrawal; E86.0 Dehydration; B19.20 Unspecified viral hepatitis C without hepatic coma; Z66 Do not resuscitate; R29.6 Repeated falls; K72.90 Hepatic failure, unspecified without coma; F17.210 Nicotine dependence, cigarettes, uncomplicated; G25.81 Restless legs syndrome; I10 Essential (primary) hypertension; F12.90 Cannabis use, unspecified, uncomplicated; F15.90 Other stimulant use, unspecified, uncomplicated; Z86.14 Personal history of Methicillin resistant Staphylococcus aureus infection; M54.9 Dorsalgia, unspecified; G89.29 Other chronic pain; Z95.0 Presence of cardiac pacemaker; H54.7 Unspecified visual loss; Z88.0 Allergy status to penicillin
CPT/HCPCS: 36415; 71010; 71010-26; 80053; 80305; 81001; 82140; 83605; 85025; 85610; 99285; A9270-GY

== ENCOUNTER 2016-09-15 19:49 | Inpatient (IN) | payer MEDICARE, MEDICAID ==
[2016-09-15] MEDS ORDERED: Morphine 4 MG/ML Syringe IVPUSH ONE (20:03)
[2016-09-15] MEDS ORDERED: Lactated Ringers 1,000 ML IV ONE (20:05)
[2016-09-15] MEDS ORDERED: Acetaminophen 500 MG Tab PO ONE (20:06)
--- NOTE | 2016-09-15 20:12 | EDM.PDOC ---
ED HPI GENERAL MEDICAL PROBLEM - General Chief Complaint: General Stated Complaint: ILLNESS Time Seen by Provider: 09/15/16 20:07 Source of Information: Reports: Patient, EMS, Old records History Limitations: Reports: No limitations - History of Present Illness INITIAL COMMENTS - FREE TEXT/NARRATIVE: 61 yo male with metastatic liver CA sent via EMS to the ER for increased pain, confusion, weakness, and fever. Is awaiting a Hospice bed. Onset: today Duration: Hour(s):, Getting worse Location: Reports: lower extremity, left Quality: Reports: Other (Has diffuse pain from his CA, this is worse today, but not in any one area. 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: Other (see below) (none) general Pain Score (Numeric/FACES): 10 - Related Data Allergies Allergy/AdvReac Type Severity Reaction Status Date / Time Penicillins Allergy Hives Verified 09/15/16 20:06 Home Meds: Home Meds Pramipexole [Mirapex] 1 mg PO TID 05/31/13 [History] oxyCODONE 10 mg PO Q4H PRN 04/14/15 [History] Rifaximin [Xifaxan] 1 tab PO BID 03/16/16 [History] Bacitracin [Bacitracin Oint] 1 gm TOP TID #1 tube 06/07/16 [Rx] Diphenoxylate HCl/Atropine [Lomotil] 1 tab PO Q6H PRN #16 tablet 07/05/16 [Rx] Ondansetron [IMW: Ondansetron ODT] 4 mg PO .EVERY 6 HOURS PRN #10 tab 07/05/16 [ Rx] Past Medical History HEENT History: Reports: Impaired vision Other HEENT History: adnoids Cardiovascular History: Reports: Arrhythmia, Pacemaker Other Cardiovascular History: Edema Respiratory History: Reports: SOB, Other (see below) Other Respiratory History: "lung capacity of an 78 year old" Gastrointestinal History: Reports: Cirrhosis, Colon polyp, Diverticulosis, Hepatitis, Other (see below) Other Gastrointestinal History: diverticulitis, bleeding ulcer, hep C. Live CA Genitourinary History: Reports: Renal calculus Musculoskeletal History: Reports: Back pain, chronic, Neck pain, chronic Other Musculoskeletal History: laminectomy Neurological History: Reports: Concussion, Other (see below) Other Neuro History: RLS Psychiatric History: Reports: Addiction Endocrine/Metabolic History: Reports: Diabetes, type II, Other (see below) Other Endocrine/Metabolic History: lost 60lbs no longer diabetic Hematologic History: Reports: Anemia, Blood transfusion(s) Immunologic History: Reports: Immunosuppression Other Immunologic History: hepatitis c, chemo Oncologic (Cancer) History: Reports: Liver Other Oncologic History: 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 Terminal CA Dermatologic History: Reports: Cellulitis, Other (see below) Other Dermatologic History: MRSA - Infectious Disease History Infectious Disease History: Reports: Chicken pox - Past Surgical History HEENT Surgical History: Reports: Adenoidectomy, Tonsillectomy Cardiovascular Surgical History: Reports: Other (see below) Other Cardiovascular Surgeries/Procedures: ablation Other GI Surgeries/Procedures: liver cancer. Paracentesis done 03/16/2016 with 3200ml fluid removed. 05/2016 [place] shunt Male Surgical History: Reports: Lithotripsy (ESWL) Neurological Surgical History: Reports: Laminectomy Musculoskeletal Surgical History: Reports: Other (see below) Other Musculoskeletal Surgeries/Procedures:: left bicep repair Social & Family History - Family History Family Medical History: Noncontributory HEENT: Reports: None - Tobacco Use Smoking Status *Q: Current Some Day Smoker Years of Tobacco use: 5 Packs/Tins Daily: 0.5 Used Tobacco, but Quit: No Month Tobacco Last Used: november Second Hand Smoke Exposure: Yes - Caffeine Use Caffeine Use: Reports: Coffee - Alcohol Use Days Per Week of Alcohol Use: 0 - Recreational Drug Use Recreational Drug Use: Yes Drug Use in Last 12 Months: Yes Recreational Drug Type: Reports: Marijuana/Hashish Other Recreational Drug Type: heroin abuse in the past Recreational Drug Use Frequency: Socially Recreational Drug Last Use: 08/18 - Living Situation & Occupation Living situation: Reports: single Occupation: disabled (lives with friends at [facility] [employer]. has 6 children in the area.) ED ROS GENERAL - Review of Systems Review Of Systems: See Below Constitutional: Reports: fever, chills, weakness HEENT: Reports: No symptoms Respiratory: Reports: No Symptoms Cardiovascular: Reports: No symptoms GI/Abdominal: Reports: Other (Has ascites normally) : Reports: no symptoms Musculoskeletal: Reports: no symptoms Skin: Reports: erythema (L leg below the knee is red and warm.) Neurological: Reports: Confusion Psychiatric: Reports: No symptoms ED EXAM, GENERAL - Physical Exam Exam: See Below Exam Limited By: No limitations General Appearance: alert, mild distress, other (chronically ill appearing) Eye Exam: bilateral eye: PERRL Ears: normal external exam, normal canal, hearing grossly normal Ear Exam: bilateral ear: auricle normal, canal normal Nose: normal inspection, normal mucosa, other (dried blood in nares) Throat/Mouth: Normal inspection, Normal oropharynx, Normal voice, No airway compromise, Other (lips dry) Head: atraumatic, normocephalic Neck: normal inspection Respiratory/Chest: no respiratory distress, lungs clear, normal breath sounds, no accessory muscle use Cardiovascular: regular rate, rhythm GI/Abdominal: distended, other (ascites present) Back Exam: normal inspection Extremities: pedal edema, increased warmth, redness (L Leg below the knee is red. ) Neurological: alert, CN II-XII intact, no motor/sensory deficits, confused ( mildly confused.) Psychiatric: normal affect, normal mood Skin Exam: Warm, Dry, Intact, Normal color, No rash, Erythema, Increased warmth (L leg below the knee) Lymphatic: no adenopathy Course - Vital Signs Text/Narrative:: LR 1000 ml IV, acetaminophen 1000 mg po, MS 4 mg IV, Zofran 4 mg IV, MS 2 mg IV , LR 125 ml IV after bolus Last Recorded V/S: Last Vital Signs Temp 38.3 C H 09/15/16 20:31 Pulse 83 09/15/16 20:31 Resp 14 09/15/16 20:31 BP 131/66 09/15/16 20:31 Pulse Ox 96 09/15/16 20:31 - Orders/Labs/Meds Orders: Active Orders 24 hr Category Date Time Status CULTURE BLOOD [BC] Urgent Lab 09/15/16 20:10 Received CULTURE BLOOD [BC] Urgent Lab 09/15/16 20:15 Received UA W/MICROSCOPIC [URIN] Stat Lab 09/15/16 20:02 Uncollected Lactated Ringers [Ringers, Lactated] 1,000 ml Med 09/15/16 21:30 Active IV ASDIRECTED Sodium Chloride 0.9% [Saline Flush] Med 09/15/16 20:02 Active 10 ml FLUSH ASDIRECTED PRN Blood Culture x2 Reflex Set [OM.PC] Urgent Oth 09/15/16 20:05 Ordered Saline Lock Insert [OM.PC] Routine Oth 09/15/16 20:02 Ordered Medication Orders Lactated Ringer's (Ringers, Lactated) 1,000 mls @ 125 mls/hr IV ASDIRECTED KRYS Last Admin: 09/15/16 21:48 Dose: 125 mls/hr Sodium Chloride (Saline Flush) 10 ml FLUSH ASDIRECTED PRN PRN Reason: Keep Vein Open Last Admin: 09/15/16 20:26 Dose: 10 ml Labs: Laboratory Tests 09/15/16 09/15/16 09/15/16 Range/Units 20:02 20:02 20:04 WBC 8.8 (4.5-11.0) K/uL RBC 3.19 L (4.30-5.90) M/uL Hgb 9.5 L (12.0-15.0) g/dL Hct 28.2 L (40.0-54.0) % MCV 88 (80-98) fL MCH 30 (27-31) pg MCHC 34 (32-36) % Plt Count 72 L (150-400) K/uL PT (9.5-12.0) sec INR (0.80-1.20) Sodium 140 (140-148) mmol/L Potassium 3.8 (3.6-5.2) mmol/L Chloride 110 H (100-108) mmol/L Carbon Dioxide 20 L (21-32) mmol/L Anion Gap 13.8 (5.0-14.0) mmol/L BUN 30 H (7-18) mg/dL Creatinine 1.1 (0.8-1.3) mg/dL Est Cr Clr Drug Dosing TNP Estimated GFR (MDRD) > 60 (>60) Glucose 99 (74-106) mg/dL Lactic Acid 1.5 (0.4-2.0) mmol/L Calcium 7.1 L (8.5-10.1) mg/dL Total Bilirubin 1.6 H (0.2-1.0) mg/dL AST 75 H (15-37) U/L ALT 67 (12-78) U/L Alkaline Phosphatase 109 (46-116) U/L Ammonia (11-32) mmol/L Troponin I 0.045 (0.000-0.056) ng/mL Total Protein 6.8 (6.4-8.2) g/dL Albumin 1.8 L (3.4-5.0) g/dL Globulin 5.0 H (2.3-3.5) g/dL Albumin/Globulin Ratio 0.4 L (1.2-2.2) 09/15/16 09/15/16 Range/Units 21:18 21:22 WBC (4.5-11.0) K/uL RBC (4.30-5.90) M/uL Hgb (12.0-15.0) g/dL Hct (40.0-54.0) % MCV (80-98) fL MCH (27-31) pg MCHC (32-36) % Plt Count (150-400) K/uL PT 14.0 H (9.5-12.0) sec INR 1.31 H (0.80-1.20) Sodium (140-148) mmol/L Potassium (3.6-5.2) mmol/L Chloride (100-108) mmol/L Carbon Dioxide (21-32) mmol/L Anion Gap (5.0-14.0) mmol/L BUN (7-18) mg/dL Creatinine (0.8-1.3) mg/dL Est Cr Clr Drug Dosing Estimated GFR (MDRD) (>60) Glucose (74-106) mg/dL Lactic Acid (0.4-2.0) mmol/L Calcium (8.5-10.1) mg/dL Total Bilirubin (0.2-1.0) mg/dL AST (15-37) U/L ALT (12-78) U/L Alkaline Phosphatase (46-116) U/L Ammonia 116 H (11-32) mmol/L Troponin I (0.000-0.056) ng/mL Total Protein (6.4-8.2) g/dL Albumin (3.4-5.0) g/dL Globulin (2.3-3.5) g/dL Albumin/Globulin Ratio (1.2-2.2) Meds: Medications Generic Name Dose Route Start Last Admin Trade Name Freq PRN Reason Stop Dose Admin Lactated Ringer's 1,000 mls @ 125 mls/hr 09/15/16 21:30 09/15/16 21:48 Ringers, Lactated IV 125 mls/hr ASDIRECTED KRYS Administration Sodium Chloride 10 ml 09/15/16 20:02 09/15/16 20:26 Saline Flush FLUSH 10 ml ASDIRECTED PRN Administration Keep Vein Open Discontinued Medications Generic Name Dose Route Start Last Admin Trade Name Arnoldo PRN Reason Stop Dose Admin Acetaminophen 1,000 mg 09/15/16 20:06 09/15/16 20:18 Tylenol Extra Strength PO 09/15/16 20:07 1,000 mg ONETIME ONE Administration Lactated Ringer's 1,000 mls @ 1,000 mls/hr 09/15/16 20:05 09/15/16 20:25 Ringers, Lactated IV 09/15/16 21:04 1,000 mls/hr BOLUS ONE Administration Morphine Sulfate 4 mg 09/15/16 20:03 09/15/16 20:19 Morphine IVPUSH 09/15/16 20:04 4 mg ONETIME ONE Administration Morphine Sulfate 2 mg 09/15/16 21:15 Morphine IVPUSH 09/15/16 21:16 ONETIME ONE Ondansetron HCl 4 mg 09/15/16 20:39 09/15/16 20:44 Zofran IVPUSH 09/15/16 20:40 4 mg ONETIME ONE Administration Departure - Departure Time of Disposition: 22:00 Disposition: Admitted As Inpatient 64 Condition: fair Clinical Impression: Hyperammonemia Fever Qualifiers: Fever type: unspecified Qualified Code(s): R50.9 - Fever, unspecified Cellulitis of leg Qualifiers: Laterality: unspecified laterality Qualified Code(s): L03.119 - Cellulitis of unspecified part of limb Forms: ED Department Discharge - My Orders Last 24 Hours: My Active Orders 09/15/16 20:02 UA W/MICROSCOPIC [URIN] Stat Sodium Chloride 0.9% [Saline Flush] 10 ml FLUSH ASDIRECTED PRN Saline Lock Insert [OM.PC] Routine 09/15/16 20:05 Blood Culture x2 Reflex Set [OM.PC] Urgent 09/15/16 20:10 CULTURE BLOOD [BC] Urgent 09/15/16 20:15 CULTURE BLOOD [BC] Urgent 09/15/16 21:30 Lactated Ringers [Ringers, Lactated] 1,000 ml IV ASDIRECTED - Assessment/Plan Last 24 Hours: My Active Orders 09/15/16 20:02 UA W/MICROSCOPIC [URIN] Stat Sodium Chloride 0.9% [Saline Flush] 10 ml FLUSH ASDIRECTED PRN Saline Lock Insert [OM.PC] Routine 09/15/16 20:05 Blood Culture x2 Reflex Set [OM.PC] Urgent 09/15/16 20:10 CULTURE BLOOD [BC] Urgent 09/15/16 20:15 CULTURE BLOOD [BC] Urgent 09/15/16 21:30 Lactated Ringers [Ringers, Lactated] 1,000 ml IV ASDIRECTED
[2016-09-15] MEDS: Sodium Chloride 0.9% 10 ML Syringe FLUSH PRN (20:26)
[2016-09-15] MEDS ORDERED: Ondansetron 4 MG/2 ML SDV IVPUSH ONE (20:39)
[2016-09-15] MEDS ORDERED: Morphine 2 MG/ML Syringe IVPUSH ONE (21:15)
[2016-09-15] MEDS ORDERED: Lactated Ringers 1,000 ML IV SCH (21:30)
--- NOTE | 2016-09-15 21:35 | PCM.HP ---
H&P History of Present Illness - General Date of Service: 09/15/16 Source of Information: Patient, EMS History Limitations: Reports: Altered mental status - History of Present Illness Initial Comments - Free Text/Narative: Jonathan comes in for a reevaluation by ambulance having excessive weakness and difficulty time with memory and ambulation. He was recently in this facility and wanted to go to a penitentiary for further care and recently signed a DNR/ DNI. His insurance was not completed so he couldn't get the care that he needs. He said his legs are getting increase in size and swelling and painful he said the legs were much larger this morning. He developed a fever with chills but did not take his temperature. His weakness has been progressive. Onset of Symptoms: Reports: gradual Associated Symptoms: Reports: confusion general Pain Score (Numeric/FACES): 10 - Related Data Allergies/Adverse Reactions: Allergies Allergy/AdvReac Type Severity Reaction Status Date / Time Penicillins Allergy Hives Verified 09/15/16 20:06 Home Medications: Home Meds Pramipexole [Mirapex] 1 mg PO TID 05/31/13 [History] oxyCODONE 10 mg PO Q4H PRN 04/14/15 [History] Rifaximin [Xifaxan] 1 tab PO BID 03/16/16 [History] Bacitracin [Bacitracin Oint] 1 gm TOP TID #1 tube 06/07/16 [Rx] Diphenoxylate HCl/Atropine [Lomotil] 1 tab PO Q6H PRN #16 tablet 07/05/16 [Rx] Ondansetron [IMW: Ondansetron ODT] 4 mg PO .EVERY 6 HOURS PRN #10 tab 07/05/16 [ Rx] Past Medical History HEENT History: Reports: Impaired vision Other HEENT History: adnoids Cardiovascular History: Reports: Arrhythmia, Pacemaker Other Cardiovascular History: Edema Respiratory History: Reports: SOB, Other (see below) Other Respiratory History: "lung capacity of an 78 year old" Gastrointestinal History: Reports: Cirrhosis, Colon polyp, Diverticulosis, Hepatitis, Other (see below) Other Gastrointestinal History: diverticulitis, bleeding ulcer, hep C. Live CA Genitourinary History: Reports: Renal calculus Musculoskeletal History: Reports: Back pain, chronic, Neck pain, chronic Other Musculoskeletal History: laminectomy Neurological History: Reports: Concussion, Other (see below) Other Neuro History: RLS Psychiatric History: Reports: Addiction Endocrine/Metabolic History: Reports: Diabetes, type II, Other (see below) Other Endocrine/Metabolic History: lost 60lbs no longer diabetic Hematologic History: Reports: Anemia, Blood transfusion(s) Immunologic History: Reports: Immunosuppression Other Immunologic History: hepatitis c, chemo Oncologic (Cancer) History: Reports: Liver Other Oncologic History: 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 Terminal CA Dermatologic History: Reports: Cellulitis, Other (see below) Other Dermatologic History: MRSA - Infectious Disease History Infectious Disease History: Reports: Chicken pox - Past Surgical History HEENT Surgical History: Reports: Adenoidectomy, Tonsillectomy Cardiovascular Surgical History: Reports: Other (see below) Other Cardiovascular Surgeries/Procedures: ablation Other GI Surgeries/Procedures: liver cancer. Paracentesis done 03/16/2016 with 3200ml fluid removed. 05/2016 [place] shunt Male Surgical History: Reports: Lithotripsy (ESWL) Neurological Surgical History: Reports: Laminectomy Musculoskeletal Surgical History: Reports: Other (see below) Other Musculoskeletal Surgeries/Procedures:: left bicep repair Social & Family History - Family History Family Medical History: Noncontributory HEENT: Reports: None - Tobacco Use Smoking Status *Q: Current Some Day Smoker Years of Tobacco use: 5 Packs/Tins Daily: 0.5 Used Tobacco, but Quit: No Month Tobacco Last Used: november Second Hand Smoke Exposure: Yes - Caffeine Use Caffeine Use: Reports: Coffee - Alcohol Use Days Per Week of Alcohol Use: 0 - Recreational Drug Use Recreational Drug Use: Yes Drug Use in Last 12 Months: Yes Recreational Drug Type: Reports: Marijuana/Hashish Other Recreational Drug Type: heroin abuse in the past Recreational Drug Use Frequency: Socially Recreational Drug Last Use: 08/18 - Living Situation & Occupation Living situation: Reports: single Occupation: disabled (lives with friends at [facility]. has 6 children in the area.) H&P Review of Systems - Review of Systems: Review Of Systems: See Below General: Reports: fever, chills, weakness, decreased appetite HEENT: Reports: no symptoms Pulmonary: Reports: No Symptoms Cardiovascular: Reports: dyspnea on exertion, edema Gastrointestinal: Reports: Abdominal pain, Diarrhea Genitourinary: Reports: frequency Skin: Reports: rash, erythema Psychiatric: Reports: confusion Neurological: Reports: Confusion, Difficulty Walking, Weakness, Change in Speech , Gait Disturbance Exam - Exam Exam: See Below - Vital Signs Vital Signs: Last Vital Signs Temp 100.9 F H 09/15/16 20:31 Pulse 83 09/15/16 20:31 Resp 14 09/15/16 20:31 BP 131/66 09/15/16 20:31 Pulse Ox 96 09/15/16 20:31 Weight: 227 lb 4.745 oz - Exam General: moderate distress, sedated, lethargic, obtunded HEENT: PERRLA, Conjunctiva clear, EOMI Neck: supple Lungs: Decreased breath sounds Cardiovascular: regular rate Abdomen: distention, tenderness Peripheral Pulses: 1+: radial (L), radial (R) Skin: other (The skin in the legs are red and inflamed left being worse than the right and +3 edema in the right +2 in the left) Neurological: other (Speech is slurred and difficult to keep alert to communicate) Neuro Extensive - Mental Status: slow response to commands DTR: 1+: tricep (L), tricep (R) Psychiatric: depressed - Patient Data Lab Results last 24 hrs: Laboratory Results - last 24 hr 09/15/16 09/15/16 09/15/16 Range/Units 20:02 20:02 20:04 WBC 8.8 (4.5-11.0) K/uL RBC 3.19 L (4.30-5.90) M/uL Hgb 9.5 L (12.0-15.0) g/dL Hct 28.2 L (40.0-54.0) % MCV 88 (80-98) fL MCH 30 (27-31) pg MCHC 34 (32-36) % Plt Count 72 L (150-400) K/uL Sodium 140 (140-148) mmol/L Potassium 3.8 (3.6-5.2) mmol/L Chloride 110 H (100-108) mmol/L Carbon Dioxide 20 L (21-32) mmol/L Anion Gap 13.8 (5.0-14.0) mmol/L BUN 30 H (7-18) mg/dL Creatinine 1.1 (0.8-1.3) mg/dL Est Cr Clr Drug Dosing TNP Estimated GFR (MDRD) > 60 (>60) Glucose 99 (74-106) mg/dL Lactic Acid 1.5 (0.4-2.0) mmol/L Calcium 7.1 L (8.5-10.1) mg/dL Total Bilirubin 1.6 H (0.2-1.0) mg/dL AST 75 H (15-37) U/L ALT 67 (12-78) U/L Alkaline Phosphatase 109 (46-116) U/L Troponin I 0.045 (0.000-0.056) ng/mL Total Protein 6.8 (6.4-8.2) g/dL Albumin 1.8 L (3.4-5.0) g/dL Globulin 5.0 H (2.3-3.5) g/dL Albumin/Globulin Ratio 0.4 L (1.2-2.2) Result Diagrams: 09/17/16 06:00 09/17/16 06:00 *Q Meaningful Use (ADM) - VTE *Q VTE Criteria *Q: - Stroke *Q Stroke Criteria *Q: - AMI *Q AMI Criteria *Q: Problem List Initiated/Reviewed/Updated: Yes Orders Last 24hrs: Active Orders 24 hr Category Date Time Status AMMONIA VENOUS [CHEM] Stat Lab 09/15/16 21:22 Received CULTURE BLOOD [BC] Urgent Lab 09/15/16 20:10 Received CULTURE BLOOD [BC] Urgent Lab 09/15/16 20:15 Received INR,PT,PROTHROMBIN TIME [COAG] Stat Lab 09/15/16 21:18 Ordered UA W/MICROSCOPIC [URIN] Stat Lab 09/15/16 20:02 Uncollected Lactated Ringers [Ringers, Lactated] 1,000 ml Med 09/15/16 21:30 Active IV ASDIRECTED Sodium Chloride 0.9% [Saline Flush] Med 09/15/16 20:02 Active 10 ml FLUSH ASDIRECTED PRN Blood Culture x2 Reflex Set [OM.PC] Urgent Oth 09/15/16 20:05 Ordered Saline Lock Insert [OM.PC] Routine Oth 09/15/16 20:02 Ordered Medication Orders Lactated Ringer's (Ringers, Lactated) 1,000 mls @ 125 mls/hr IV ASDIRECTED KRYS Sodium Chloride (Saline Flush) 10 ml FLUSH ASDIRECTED PRN PRN Reason: Keep Vein Open Last Admin: 09/15/16 20:26 Dose: 10 ml Assessment/Plan Comment:: Assessment/plan: #1. Adenocarcinoma of the liver with metastasis. This is a terminal situation with fluid in his abdomen not using his shunt. He needs to be in a care facility. He is homeless and no place to go until he gets proper insurance coverage. He is unable to care for himself due to his mental and physical condition. #2. Hepatic encephalopathy. ammonia level is pending. #3. Cellulitis lower extremities. #4. Restless leg syndrome. We'll continue with Mirapex. #5. Hypertension. Will monitor blood pressure and treat as indicated. #6. Hepatitis C. this is the cause of the adenocarcinoma of the liver. #7. Marijuana and methamphetamine abuse.
[2016-09-15] MEDS ORDERED: Atropine/Diphenoxylate 0.025-2.5 MG Tab PO PRN (21:56)
[2016-09-15] MEDS ORDERED: Ondansetron 4 MG Tab.DIS PO PRN (21:56)
[2016-09-15] MEDS ORDERED: Pramipexole 0.5 MG Tab ONE (23:30)
[2016-09-16] MEDS: oxyCODONE 5 MG Tab PO PRN ×3 (00:58→18:07)
[2016-09-16] MEDS: Pramipexole 0.5 MG Tab PO SCH ×3 (08:27→20:39)
[2016-09-16] MEDS: Rifaximin 550 MG Tab PO SCH ×2 (08:27→20:39)
[2016-09-16] MEDS: Bacitracin Oint 28.35 GM Tube TOP SCH ×3 (09:30→20:39)
--- NOTE | 2016-09-16 09:39 | PCM.PN ---
- General Info Date of Service: 09/16/16 Functional Status: Reports: other (His pain is controlled with narcotic medication. His pain is in the lower back as well as abdomen.) - Review of Systems General: Reports: Weakness, Fatigue HEENT: Reports: no symptoms Pulmonary: Reports: no symptoms Cardiovascular: Reports: No Symptoms Gastrointestinal: Reports: Decreased appetite Genitourinary: Reports: no symptoms Musculoskeletal: Reports: back pain Skin: Reports: no symptoms Neurological: Reports: Difficulty Walking, Gait Disturbance Psychiatric: Reports: depression - Patient Data Vitals - most recent: Last Vital Signs Temp 97.9 F 09/16/16 08:34 Pulse 69 09/16/16 08:34 Resp 20 09/16/16 08:34 BP 108/67 09/16/16 08:34 Pulse Ox 96 09/16/16 08:34 Weight - most recent: 235 lb 12.8 oz I&O - last 24 hours: Intake & Output 09/15/16 09/16/16 09/16/16 22:59 06:59 14:59 Intake Total 960 Output Total 125 Balance 835 Med Orders - Current: Current Medications Bacitracin (Bacitracin Oint) 0 gm TOP TID [facility] Diphenoxylate HCl/Atropine (Lomotil 0.025-2.5 Mg) 1 tab PO Q6H PRN PRN Reason: Diarrhea Lactulose (Chronulac) 10 gm PO DAILY [facility] Ondansetron HCl (Zofran Odt) 4 mg PO Q6H PRN PRN Reason: Nausea or vomiting Oxycodone HCl (Oxycodone) 10 mg PO Q4H PRN PRN Reason: Pain Last Admin: 09/16/16 06:03 Dose: 10 mg Pramipexole Dihydrochloride (Mirapex) 1 mg PO TID [facility] Last Admin: 09/16/16 08:27 Dose: 1 mg Rifaximin (Xifaxan) 550 mg PO BID [facility] Last Admin: 09/16/16 08:27 Dose: 550 mg Sodium Chloride (Saline Flush) 10 ml FLUSH ASDIRECTED PRN PRN Reason: Keep Vein Open Last Admin: 09/15/16 20:26 Dose: 10 ml Discontinued Medications Acetaminophen (Tylenol Extra Strength) 1,000 mg PO ONETIME ONE Stop: 09/15/16 20:07 Last Admin: 09/15/16 20:18 Dose: 1,000 mg Lactated Ringer's (Ringers, Lactated) 1,000 mls @ 1,000 mls/hr IV BOLUS ONE Stop: 09/15/16 21:04 Last Admin: 09/15/16 20:25 Dose: 1,000 mls/hr Lactated Ringer's (Ringers, Lactated) 1,000 mls @ 125 mls/hr IV ASDIRECTED KRYS Last Admin: 09/15/16 21:48 Dose: 125 mls/hr Morphine Sulfate (Morphine) 4 mg IVPUSH ONETIME ONE Stop: 09/15/16 20:04 Last Admin: 09/15/16 20:19 Dose: 4 mg Morphine Sulfate (Morphine) 2 mg IVPUSH ONETIME ONE Stop: 09/15/16 21:16 Last Admin: 09/15/16 22:50 Dose: 2 mg Ondansetron HCl (Zofran) 4 mg IVPUSH ONETIME ONE Stop: 09/15/16 20:40 Last Admin: 09/15/16 20:44 Dose: 4 mg Pramipexole Dihydrochloride (Mirapex) Confirm Administered Dose 1 mg .ROUTE .STK -MED ONE Stop: 09/15/16 23:31 Last Admin: 09/16/16 00:58 Dose: 1 mg - Exam General: oriented, cooperative, mild distress HEENT: Pupils equal, Pupils reactive, EOMI, Mucous membr. moist/pink Neck: supple Lungs: Clear to auscultation, Normal respiratory effort Cardiovascular: Regular Rate, Regular Rhythm Abdomen: distension Back Exam: vertebral tenderness Extremities: edema Peripheral Pulses: 1+: radial (L), radial (R) Skin: warm, dry, intact Neurological: normal speech Psy/Mental Status: depressed - Problem List Review Problem List Initiated/Reviewed/Updated: Yes - My Orders Last 24 Hours: My Active Orders 09/16/16 00:17 Pressure Reduction Mattress [OM.PC] Routine 09/16/16 10:00 Lactulose [Chronulac] 10 gm PO DAILY - Plan Plan:: Assessment/plan: #1. Adenocarcinoma of the liver with metastasis. This is a terminal situation with fluid in his abdomen. He's not been using his pump to remove the fluid on a regular basis. He needs to be in a care facility so are her care can be given as soon as his insurance dilemma is resolved. #2. Hepatic encephalopathy. Ammonia level is elevated I gave him lactulose and will repeat a level tomorrow. #3. Cellulitis lower extremities. #4. Restless leg syndrome. We'll continue with Mirapex. #5. Hypertension. His blood pressure is elevated. #6. Hepatitis C. this is the cause of the adenocarcinoma of the liver. #7. Marijuana and methamphetamine abuse.
[2016-09-16] MEDS: Lactulose Soln 10 GM/15 ML 15 ML UD Cup PO SCH (13:10)
[2016-09-17] MEDS: oxyCODONE 5 MG Tab PO PRN ×3 (00:41→21:30)
[2016-09-17] MEDS: Rifaximin 550 MG Tab PO SCH ×2 (08:50→21:23)
[2016-09-17] MEDS: Bacitracin Oint 28.35 GM Tube TOP SCH ×3 (08:50→21:22)
[2016-09-17] MEDS: Lactulose Soln 10 GM/15 ML 15 ML UD Cup PO SCH (08:50)
[2016-09-17] MEDS: Pramipexole 0.5 MG Tab PO SCH ×3 (08:50→21:24)
--- NOTE | 2016-09-17 11:00 | PCM.PN ---
- General Info Date of Service: 09/17/16 Admission Dx/Problem (Free Text): He states that he wants to move to a different locality since most of his friends are using drugs. Functional Status: Reports: pain controlled - Review of Systems General: Reports: Weakness, Appetite HEENT: Reports: no symptoms Pulmonary: Reports: other (He does have shortness of breath with increased exertion.) Cardiovascular: Reports: No Symptoms Gastrointestinal: Reports: Abdominal pain, Decreased appetite Genitourinary: Reports: no symptoms Skin: Reports: no symptoms Neurological: Reports: Difficulty Walking, Weakness, Gait Disturbance Psychiatric: Reports: depression - Patient Data Vitals - most recent: Last Vital Signs Temp 99.4 F 09/17/16 10:41 Pulse 71 09/17/16 10:41 Resp 20 09/17/16 10:41 BP 148/86 H 09/17/16 10:41 Pulse Ox 95 09/17/16 10:41 Weight - most recent: 235 lb 12.8 oz I&O - last 24 hours: Intake & Output 09/16/16 09/17/16 09/17/16 22:59 06:59 14:59 Intake Total 1200 700 Output Total 300 Balance 1200 400 Lab Results last 24 hrs: Laboratory Results - last 24 hr 09/17/16 09/17/16 09/17/16 Range/Units 06:00 06:00 06:00 WBC 6.1 (4.5-11.0) K/uL RBC 3.15 L (4.30-5.90) M/uL Hgb 9.3 L (12.0-15.0) g/dL Hct 28.0 L (40.0-54.0) % MCV 89 (80-98) fL MCH 30 (27-31) pg MCHC 33 (32-36) % Plt Count 73 L (150-400) K/uL Neut % (Auto) 56 (36-66) % Lymph % (Auto) 16 L (24-44) % [place] % (Auto) 14 H (2-6) % Eos % (Auto) 13 H (2-4) % Baso % (Auto) 1 (0-1) % Sodium 138 L (140-148) mmol/L Potassium 4.6 (3.6-5.2) mmol/L Chloride 108 (100-108) mmol/L Carbon Dioxide 24 (21-32) mmol/L Anion Gap 10.6 (5.0-14.0) mmol/L BUN 34 H (7-18) mg/dL Creatinine 1.1 (0.8-1.3) mg/dL Est Cr Clr Drug Dosing 77.31 mL/min Estimated GFR (MDRD) > 60 (>60) Glucose 115 H (74-106) mg/dL Calcium 7.2 L (8.5-10.1) mg/dL Ammonia 38 H (11-32) mmol/L Med Orders - Current: Current Medications Bacitracin (Bacitracin Oint) 0 gm TOP TID [facility] Last Admin: 09/17/16 08:50 Dose: 1 applicful Diphenoxylate HCl/Atropine (Lomotil 0.025-2.5 Mg) 1 tab PO Q6H PRN PRN Reason: Diarrhea Lactulose (Chronulac) 10 gm PO DAILY [facility] Last Admin: 09/17/16 08:50 Dose: 10 gm Ondansetron HCl (Zofran Odt) 4 mg PO Q6H PRN PRN Reason: Nausea or vomiting Oxycodone HCl (Oxycodone) 10 mg PO Q4H PRN PRN Reason: Pain Last Admin: 09/17/16 09:02 Dose: 10 mg Pramipexole Dihydrochloride (Mirapex) 1 mg PO TID [facility] Last Admin: 09/17/16 08:50 Dose: 1 mg Rifaximin (Xifaxan) 550 mg PO BID [facility] Last Admin: 09/17/16 08:50 Dose: 550 mg Sodium Chloride (Saline Flush) 10 ml FLUSH ASDIRECTED PRN PRN Reason: Keep Vein Open Last Admin: 09/15/16 20:26 Dose: 10 ml Discontinued Medications Acetaminophen (Tylenol Extra Strength) 1,000 mg PO ONETIME ONE Stop: 09/15/16 20:07 Last Admin: 09/15/16 20:18 Dose: 1,000 mg Lactated Ringer's (Ringers, Lactated) 1,000 mls @ 1,000 mls/hr IV BOLUS ONE Stop: 09/15/16 21:04 Last Admin: 09/15/16 20:25 Dose: 1,000 mls/hr Lactated Ringer's (Ringers, Lactated) 1,000 mls @ 125 mls/hr IV ASDIRECTED [facility] Last Admin: 09/15/16 21:48 Dose: 125 mls/hr Morphine Sulfate (Morphine) 4 mg IVPUSH ONETIME ONE Stop: 09/15/16 20:04 Last Admin: 09/15/16 20:19 Dose: 4 mg Morphine Sulfate (Morphine) 2 mg IVPUSH ONETIME ONE Stop: 09/15/16 21:16 Last Admin: 09/15/16 22:50 Dose: 2 mg Ondansetron HCl (Zofran) 4 mg IVPUSH ONETIME ONE Stop: 09/15/16 20:40 Last Admin: 09/15/16 20:44 Dose: 4 mg Pramipexole Dihydrochloride (Mirapex) Confirm Administered Dose 1 mg .ROUTE .STK -MED ONE Stop: 09/15/16 23:31 Last Admin: 09/16/16 00:58 Dose: 1 mg - Exam General: alert, oriented HEENT: Pupils equal, Pupils reactive, EOMI, Mucous membr. moist/pink Neck: supple Lungs: Clear to auscultation, Normal respiratory effort Cardiovascular: Regular Rate, Regular Rhythm Abdomen: distension Extremities: edema Peripheral Pulses: 1+: radial (L), radial (R) Skin: warm, dry, intact Neurological: sensation intact Psy/Mental Status: depressed - Problem List Review Problem List Initiated/Reviewed/Updated: Yes - My Orders Last 24 Hours: My Active Orders 09/16/16 10:00 Lactulose [Chronulac] 10 gm PO DAILY - Plan Plan:: Assessment/plan: #1. Adenocarcinoma of the liver with metastasis. This is a terminal situation with fluid in his abdomen. He's not been using his pump to remove the fluid on a regular basis. He needs to be in a care facility so are her care can be given as soon as his insurance dilemma is resolved. I have told him that changing localities would not change his thirst for narcotics. He needs to be in a care facility due to his liver dysfunction which is causing his generalized weakness and mental challenge. #2. Hepatic encephalopathy. Ammonia level is elevated I gave him lactulose and will repeat a level tomorrow. His ammonia level dropped significantly from 116 down to 39 with the use of lactulose. We'll give a smaller dose of lactulose which hopefully not cause further GI problems. #3. Cellulitis lower extremities. #4. Restless leg syndrome. We'll continue with Mirapex. #5. Hypertension. His blood pressure is elevated. #6. Hepatitis C. this is the cause of the adenocarcinoma of the liver. #7. Marijuana and methamphetamine abuse.
[2016-09-18] MEDS: oxyCODONE 5 MG Tab PO PRN ×4 (07:27→23:21)
[2016-09-18] MEDS: Lactulose Soln 10 GM/15 ML 15 ML UD Cup PO SCH (09:45)
[2016-09-18] MEDS: Pramipexole 0.5 MG Tab PO SCH ×3 (09:46→22:07)
[2016-09-18] MEDS: Rifaximin 550 MG Tab PO SCH ×2 (09:46→22:07)
[2016-09-18] MEDS: Bacitracin Oint 28.35 GM Tube TOP SCH ×3 (09:49→22:07)
--- NOTE | 2016-09-18 18:10 | PCM.PN ---
- General Info Date of Service: 09/18/16 Functional Status: Reports: pain controlled - Review of Systems General: Reports: Weakness, Fatigue HEENT: Reports: no symptoms Pulmonary: Reports: shortness of breath Cardiovascular: Reports: No Symptoms Gastrointestinal: Reports: Diarrhea Genitourinary: Reports: frequency Musculoskeletal: Reports: shoulder pain, back pain Neurological: Reports: No Symptoms Psychiatric: Reports: anxiety - Patient Data Vitals - most recent: Last Vital Signs Temp 99.4 F 09/18/16 15:04 Pulse 73 09/18/16 15:04 Resp 16 09/18/16 15:04 BP 112/75 09/18/16 15:04 Pulse Ox 95 09/18/16 15:04 Weight - most recent: 236 lb 12.8 oz I&O - last 24 hours: Intake & Output 09/18/16 09/18/16 09/18/16 06:59 14:59 22:59 Intake Total 480 Output Total 600 Balance -600 480 Lab Results last 24 hrs: Laboratory Results - last 24 hr 09/18/16 09/18/16 09/18/16 Range/Units 04:45 04:45 04:45 WBC 4.9 (4.5-11.0) K/uL RBC 2.82 L (4.30-5.90) M/uL Hgb 8.4 L (12.0-15.0) g/dL Hct 25.0 L (40.0-54.0) % MCV 89 (80-98) fL MCH 30 (27-31) pg MCHC 34 (32-36) % Plt Count 58 L (150-400) K/uL Neut % (Auto) 58 (36-66) % Lymph % (Auto) 14 L (24-44) % [place] % (Auto) 14 H (2-6) % Eos % (Auto) 14 H (2-4) % Baso % (Auto) 1 (0-1) % Sodium 138 L (140-148) mmol/L Potassium 4.2 (3.6-5.2) mmol/L Chloride 109 H (100-108) mmol/L Carbon Dioxide 24 (21-32) mmol/L Anion Gap 9.2 (5.0-14.0) mmol/L BUN 30 H (7-18) mg/dL Creatinine 0.9 (0.8-1.3) mg/dL Est Cr Clr Drug Dosing 94.49 mL/min Estimated GFR (MDRD) > 60 (>60) Glucose 105 (74-106) mg/dL Calcium 6.8 L* (8.5-10.1) mg/dL Ammonia 26 (11-32) mmol/L Med Orders - Current: Current Medications Bacitracin (Bacitracin Oint) 0 gm TOP TID [facility] Last Admin: 09/18/16 13:56 Dose: 1 applicful Diphenoxylate HCl/Atropine (Lomotil 0.025-2.5 Mg) 1 tab PO Q6H PRN PRN Reason: Diarrhea Lactulose (Chronulac) 5 gm PO DAILY [facility] Last Admin: 09/18/16 09:45 Dose: 5 gm Ondansetron HCl (Zofran Odt) 4 mg PO Q6H PRN PRN Reason: Nausea or vomiting Oxycodone HCl (Oxycodone) 10 mg PO Q4H PRN PRN Reason: Pain Last Admin: 09/18/16 13:54 Dose: 10 mg Pramipexole Dihydrochloride (Mirapex) 1 mg PO TID [facility] Last Admin: 09/18/16 13:54 Dose: 1 mg Rifaximin (Xifaxan) 550 mg PO BID [facility] Last Admin: 09/18/16 09:46 Dose: 550 mg Sodium Chloride (Saline Flush) 10 ml FLUSH ASDIRECTED PRN PRN Reason: Keep Vein Open Last Admin: 09/15/16 20:26 Dose: 10 ml Discontinued Medications Acetaminophen (Tylenol Extra Strength) 1,000 mg PO ONETIME ONE Stop: 09/15/16 20:07 Last Admin: 09/15/16 20:18 Dose: 1,000 mg Lactated Ringer's (Ringers, Lactated) 1,000 mls @ 1,000 mls/hr IV BOLUS ONE Stop: 09/15/16 21:04 Last Admin: 09/15/16 20:25 Dose: 1,000 mls/hr Lactated Ringer's (Ringers, Lactated) 1,000 mls @ 125 mls/hr IV ASDIRECTED [facility] Last Admin: 09/15/16 21:48 Dose: 125 mls/hr Lactulose (Chronulac) 10 gm PO DAILY [facility] Last Admin: 09/17/16 08:50 Dose: 10 gm Morphine Sulfate (Morphine) 4 mg IVPUSH ONETIME ONE Stop: 09/15/16 20:04 Last Admin: 09/15/16 20:19 Dose: 4 mg Morphine Sulfate (Morphine) 2 mg IVPUSH ONETIME ONE Stop: 09/15/16 21:16 Last Admin: 09/15/16 22:50 Dose: 2 mg Ondansetron HCl (Zofran) 4 mg IVPUSH ONETIME ONE Stop: 09/15/16 20:40 Last Admin: 09/15/16 20:44 Dose: 4 mg Pramipexole Dihydrochloride (Mirapex) Confirm Administered Dose 1 mg .ROUTE .STK -MED ONE Stop: 09/15/16 23:31 Last Admin: 09/16/16 00:58 Dose: 1 mg - Exam General: alert, oriented HEENT: Pupils equal, Pupils reactive, EOMI, Mucous membr. moist/pink Neck: supple Lungs: Clear to auscultation, Normal respiratory effort Cardiovascular: Regular Rate, Regular Rhythm Abdomen: bowel sounds present, soft, distension Back Exam: paraspinal tenderness, vertebral tenderness Extremities: calf tenderness, edema Peripheral Pulses: 1+: radial (L), radial (R) Skin: warm, dry, intact Neurological: no new focal deficit - Problem List Review Problem List Initiated/Reviewed/Updated: Yes - Plan Plan:: Assessment/plan: #1. Adenocarcinoma of the liver with metastasis. This is a terminal situation with fluid in his abdomen. He's not been using his pump to remove the fluid on a regular basis. He needs to be in a care facility so are her care can be given as soon as his insurance dilemma is resolved. I have told him that changing localities would not change his thirst for narcotics. He needs to be in a care facility due to his liver dysfunction which is causing his generalized weakness and mental challenge. #2. Hepatic encephalopathy. Ammonia level is improved with better mental alertness. #3. Cellulitis lower extremities. #4. Restless leg syndrome. We'll continue with Mirapex. #5. Hypertension. His blood pressure was elevated earlier and 112/75 this evening.. #6. Hepatitis C. this is the cause of the adenocarcinoma of the liver. #7. Marijuana and methamphetamine abuse.
[2016-09-19] MEDS: oxyCODONE 5 MG Tab PO PRN ×4 (03:52→19:20)
[2016-09-19] MEDS: Bacitracin Oint 28.35 GM Tube TOP SCH ×3 (08:21→21:46)
[2016-09-19] MEDS: Lactulose Soln 10 GM/15 ML 15 ML UD Cup PO SCH (08:21)
[2016-09-19] MEDS: Pramipexole 0.5 MG Tab PO SCH ×3 (08:21→21:46)
[2016-09-19] MEDS: Rifaximin 550 MG Tab PO SCH ×2 (08:22→21:46)
[2016-09-19] MEDS: Spironolactone 25 MG Tab PO SCH (10:02)
--- NOTE | 2016-09-19 18:22 | PCM.PN ---
- General Info Date of Service: 09/19/16 Functional Status: Reports: pain controlled - Review of Systems General: Reports: Weakness HEENT: Reports: no symptoms Pulmonary: Reports: no symptoms Cardiovascular: Reports: No Symptoms Gastrointestinal: Reports: Decreased appetite Genitourinary: Reports: frequency Musculoskeletal: Reports: arm pain, back pain Skin: Reports: no symptoms Neurological: Reports: Weakness, Gait Disturbance - Patient Data Vitals - most recent: Last Vital Signs Temp 99.1 F 09/19/16 16:51 Pulse 72 09/19/16 16:51 Resp 18 09/19/16 16:51 BP 145/77 H 09/19/16 16:51 Pulse Ox 98 09/19/16 16:51 Weight - most recent: 238 lb 3.2 oz I&O - last 24 hours: Intake & Output 09/19/16 09/19/16 09/19/16 06:59 14:59 22:59 Intake Total 350 720 620 Output Total 100 Balance 350 620 620 Lab Results last 24 hrs: Laboratory Results - last 24 hr 09/19/16 Range/Units 08:55 WBC 4.3 L (4.5-11.0) K/uL RBC 2.96 L (4.30-5.90) M/uL Hgb 8.7 L (12.0-15.0) g/dL Hct 26.2 L (40.0-54.0) % MCV 89 (80-98) fL MCH 29 (27-31) pg MCHC 33 (32-36) % Plt Count 60 L (150-400) K/uL Neut % (Auto) 53 (36-66) % Lymph % (Auto) 19 L (24-44) % [place] % (Auto) 14 H (2-6) % Eos % (Auto) 12 H (2-4) % Baso % (Auto) 3 H (0-1) % Percent Retic 3.5 H (0.5-1.5) % Med Orders - Current: Current Medications Bacitracin (Bacitracin Oint) 0 gm TOP TID [facility] Last Admin: 09/19/16 13:29 Dose: 1 applicful Diphenoxylate HCl/Atropine (Lomotil 0.025-2.5 Mg) 1 tab PO Q6H PRN PRN Reason: Diarrhea Lactulose (Chronulac) 5 gm PO DAILY [facility] Last Admin: 09/19/16 08:21 Dose: 5 gm Ondansetron HCl (Zofran Odt) 4 mg PO Q6H PRN PRN Reason: Nausea or vomiting Oxycodone HCl (Oxycodone) 10 mg PO Q4H PRN PRN Reason: Pain Last Admin: 09/19/16 13:30 Dose: 10 mg Pramipexole Dihydrochloride (Mirapex) 1 mg PO TID [facility] Last Admin: 09/19/16 13:29 Dose: 1 mg Rifaximin (Xifaxan) 550 mg PO BID [facility] Last Admin: 09/19/16 08:22 Dose: 550 mg Sodium Chloride (Saline Flush) 10 ml FLUSH ASDIRECTED PRN PRN Reason: Keep Vein Open Last Admin: 09/15/16 20:26 Dose: 10 ml Spironolactone (Aldactone) 25 mg PO DAILY [facility] Last Admin: 09/19/16 10:02 Dose: 25 mg Discontinued Medications Acetaminophen (Tylenol Extra Strength) 1,000 mg PO ONETIME ONE Stop: 09/15/16 20:07 Last Admin: 09/15/16 20:18 Dose: 1,000 mg Lactated Ringer's (Ringers, Lactated) 1,000 mls @ 1,000 mls/hr IV BOLUS ONE Stop: 09/15/16 21:04 Last Admin: 09/15/16 20:25 Dose: 1,000 mls/hr Lactated Ringer's (Ringers, Lactated) 1,000 mls @ 125 mls/hr IV ASDIRECTED [facility] Last Admin: 09/15/16 21:48 Dose: 125 mls/hr Lactulose (Chronulac) 10 gm PO DAILY [facility] Last Admin: 09/17/16 08:50 Dose: 10 gm Morphine Sulfate (Morphine) 4 mg IVPUSH ONETIME ONE Stop: 09/15/16 20:04 Last Admin: 09/15/16 20:19 Dose: 4 mg Morphine Sulfate (Morphine) 2 mg IVPUSH ONETIME ONE Stop: 09/15/16 21:16 Last Admin: 09/15/16 22:50 Dose: 2 mg Ondansetron HCl (Zofran) 4 mg IVPUSH ONETIME ONE Stop: 09/15/16 20:40 Last Admin: 09/15/16 20:44 Dose: 4 mg Pramipexole Dihydrochloride (Mirapex) Confirm Administered Dose 1 mg .ROUTE .STK -MED ONE Stop: 09/15/16 23:31 Last Admin: 09/16/16 00:58 Dose: 1 mg - Exam General: alert HEENT: Pupils equal, Pupils reactive Neck: supple Lungs: Normal respiratory effort Cardiovascular: Regular Rate, Regular Rhythm Abdomen: bowel sounds present, distension (Male) Exam: No hernia Back Exam: vertebral tenderness Extremities: edema Peripheral Pulses: 1+: radial (L), radial (R) Skin: warm, dry, intact Psy/Mental Status: normal affect, normal mood - Problem List Review Problem List Initiated/Reviewed/Updated: Yes - My Orders Last 24 Hours: My Active Orders 09/19/16 09:00 Spironolactone [Aldactone] 25 mg PO DAILY - Plan Plan:: Assessment/plan: #1. Adenocarcinoma of the liver with metastasis. This is a terminal situation with fluid in his abdomen. He needs to be in a care facility so are her care can be given as soon as his insurance dilemma is resolved. He needs to be in a care facility due to his liver dysfunction which is causing his generalized weakness and mental challenge. #2. Hepatic encephalopathy. Ammonia level is normal. #3. Cellulitis lower extremities. #4. Restless leg syndrome. We'll continue with Mirapex. #5. Hypertension. His blood pressure was elevated earlier and 144/77 this evening.. #6. Hepatitis C. this is the cause of the adenocarcinoma of the liver. #7. Marijuana and methamphetamine abuse. #8. Anemia: Yesterday the Hb was 8.4 today was 8.7. Retic count 3.5. May have found a home for him tomorrow.
[2016-09-20] MEDS: oxyCODONE 5 MG Tab PO PRN ×5 (00:15→21:01)
[2016-09-20] MEDS: Lactulose Soln 10 GM/15 ML 15 ML UD Cup PO SCH (08:40)
[2016-09-20] MEDS: Spironolactone 25 MG Tab PO SCH (08:40)
[2016-09-20] MEDS: Pramipexole 0.5 MG Tab PO SCH ×3 (08:40→20:55)
[2016-09-20] MEDS: Rifaximin 550 MG Tab PO SCH ×2 (08:42→20:55)
[2016-09-20] MEDS: Bacitracin Oint 28.35 GM Tube TOP SCH ×3 (08:43→20:54)
--- NOTE | 2016-09-20 08:50 | PCM.PN ---
- General Info Date of Service: 09/20/16 Functional Status: Reports: pain controlled - Review of Systems General: Reports: Weakness HEENT: Reports: no symptoms Pulmonary: Reports: no symptoms Cardiovascular: Reports: No Symptoms Gastrointestinal: Reports: Abdominal pain Genitourinary: Reports: no symptoms Musculoskeletal: Reports: back pain Skin: Reports: no symptoms Neurological: Reports: Weakness Psychiatric: Reports: no symptoms - Patient Data Vitals - most recent: Last Vital Signs Temp 97.7 F 09/20/16 07:41 Pulse 69 09/20/16 07:41 Resp 30 H 09/20/16 07:41 BP 115/71 09/20/16 07:41 Pulse Ox 97 09/20/16 07:41 Weight - most recent: 238 lb 3.2 oz I&O - last 24 hours: Intake & Output 09/19/16 09/20/16 09/20/16 22:59 06:59 14:59 Intake Total 620 800 600 Output Total 150 200 Balance 620 650 400 Lab Results last 24 hrs: Laboratory Results - last 24 hr 09/19/16 09/20/16 09/20/16 Range/Units 08:55 04:57 04:59 WBC 4.3 L (4.5-11.0) K/uL RBC 2.96 L (4.30-5.90) M/uL Hgb 8.7 L (12.0-15.0) g/dL Hct 26.2 L (40.0-54.0) % MCV 89 (80-98) fL MCH 29 (27-31) pg MCHC 33 (32-36) % Plt Count 60 L (150-400) K/uL Neut % (Auto) 53 (36-66) % Lymph % (Auto) 19 L (24-44) % [place] % (Auto) 14 H (2-6) % Eos % (Auto) 12 H (2-4) % Baso % (Auto) 3 H (0-1) % Percent Retic 3.5 H (0.5-1.5) % Sodium 140 (140-148) mmol/L Potassium 3.9 (3.6-5.2) mmol/L Chloride 108 (100-108) mmol/L Carbon Dioxide 24 (21-32) mmol/L Anion Gap 8.5 (5.0-14.0) mmol/L BUN 23 H (7-18) mg/dL Creatinine 0.9 (0.8-1.3) mg/dL Est Cr Clr Drug Dosing 94.49 mL/min Estimated GFR (MDRD) > 60 (>60) Glucose 101 (74-106) mg/dL Calcium 6.8 L* (8.5-10.1) mg/dL Ammonia 47 H (11-32) mmol/L 09/20/16 Range/Units 05:04 WBC 4.9 (4.5-11.0) K/uL RBC 2.88 L (4.30-5.90) M/uL Hgb 8.4 L (12.0-15.0) g/dL Hct 25.4 L (40.0-54.0) % MCV 88 (80-98) fL MCH 29 (27-31) pg MCHC 33 (32-36) % Plt Count 65 L (150-400) K/uL Neut % (Auto) 48 (36-66) % Lymph % (Auto) 24 (24-44) % [place] % (Auto) 14 H (2-6) % Eos % (Auto) 12 H (2-4) % Baso % (Auto) 3 H (0-1) % Percent Retic (0.5-1.5) % Sodium (140-148) mmol/L Potassium (3.6-5.2) mmol/L Chloride (100-108) mmol/L Carbon Dioxide (21-32) mmol/L Anion Gap (5.0-14.0) mmol/L BUN (7-18) mg/dL Creatinine (0.8-1.3) mg/dL Est Cr Clr Drug Dosing mL/min Estimated GFR (MDRD) (>60) Glucose (74-106) mg/dL Calcium (8.5-10.1) mg/dL Ammonia (11-32) mmol/L Med Orders - Current: Current Medications Bacitracin (Bacitracin Oint) 0 gm TOP TID [facility] Last Admin: 09/20/16 08:43 Dose: 1 applicful Diphenoxylate HCl/Atropine (Lomotil 0.025-2.5 Mg) 1 tab PO Q6H PRN PRN Reason: Diarrhea Lactulose (Chronulac) 5 gm PO DAILY [facility] Last Admin: 09/20/16 08:40 Dose: 5 gm Ondansetron HCl (Zofran Odt) 4 mg PO Q6H PRN PRN Reason: Nausea or vomiting Oxycodone HCl (Oxycodone) 10 mg PO Q4H PRN PRN Reason: Pain Last Admin: 09/20/16 05:46 Dose: 10 mg Pramipexole Dihydrochloride (Mirapex) 1 mg PO TID [facility] Last Admin: 09/20/16 08:40 Dose: 1 mg Rifaximin (Xifaxan) 550 mg PO BID [facility] Last Admin: 09/20/16 08:42 Dose: 550 mg Sodium Chloride (Saline Flush) 10 ml FLUSH ASDIRECTED PRN PRN Reason: Keep Vein Open Last Admin: 09/15/16 20:26 Dose: 10 ml Spironolactone (Aldactone) 25 mg PO DAILY [facility] Last Admin: 09/20/16 08:40 Dose: 25 mg Discontinued Medications Acetaminophen (Tylenol Extra Strength) 1,000 mg PO ONETIME ONE Stop: 09/15/16 20:07 Last Admin: 09/15/16 20:18 Dose: 1,000 mg Lactated Ringer's (Ringers, Lactated) 1,000 mls @ 1,000 mls/hr IV BOLUS ONE Stop: 09/15/16 21:04 Last Admin: 09/15/16 20:25 Dose: 1,000 mls/hr Lactated Ringer's (Ringers, Lactated) 1,000 mls @ 125 mls/hr IV ASDIRECTED [facility] Last Admin: 09/15/16 21:48 Dose: 125 mls/hr Lactulose (Chronulac) 10 gm PO DAILY [facility] Last Admin: 09/17/16 08:50 Dose: 10 gm Morphine Sulfate (Morphine) 4 mg IVPUSH ONETIME ONE Stop: 09/15/16 20:04 Last Admin: 09/15/16 20:19 Dose: 4 mg Morphine Sulfate (Morphine) 2 mg IVPUSH ONETIME ONE Stop: 09/15/16 21:16 Last Admin: 09/15/16 22:50 Dose: 2 mg Ondansetron HCl (Zofran) 4 mg IVPUSH ONETIME ONE Stop: 09/15/16 20:40 Last Admin: 09/15/16 20:44 Dose: 4 mg Pramipexole Dihydrochloride (Mirapex) Confirm Administered Dose 1 mg .ROUTE .STK -MED ONE Stop: 09/15/16 23:31 Last Admin: 09/16/16 00:58 Dose: 1 mg - Exam General: alert, oriented HEENT: Pupils equal, Pupils reactive, EOMI, Mucous membr. moist/pink Neck: supple Lungs: Clear to auscultation, Normal respiratory effort Cardiovascular: Regular Rate, Regular Rhythm Abdomen: distension (Male) Exam: Scrotal swelling Back Exam: vertebral tenderness Peripheral Pulses: 1+: radial (L), radial (R) Skin: warm, dry, intact - Problem List Review Problem List Initiated/Reviewed/Updated: Yes - My Orders Last 24 Hours: My Active Orders 09/19/16 09:00 Spironolactone [Aldactone] 25 mg PO DAILY 09/20/16 06:40 Scrotal Support [OM.PC] Routine - Plan Plan:: Assessment/plan: #1. Adenocarcinoma of the liver with metastasis. This is a terminal situation with fluid in his abdomen. He needs to be in a care facility so are her care can be given as soon as his insurance dilemma is resolved. He needs to be in a care facility due to his liver dysfunction which is causing his generalized weakness and mental challenge. #2. Hepatic encephalopathy. Ammonia level is normal. #3. Cellulitis lower extremities. #4. Restless leg syndrome. We'll continue with Mirapex. #5. Hypertension. His blood pressure was elevated earlier and 135/69this evening.. #6. Hepatitis C. this is the cause of the adenocarcinoma of the liver. #7. Marijuana and methamphetamine abuse. #8. Anemia: Yesterday the Hb was 8.4 today was 8.7. Retic count 3.5. #9. Scrotal swelling. Due to abd. fluid May have found a home for him tomorrow. Calcium is low but normal when correcting for low albumin.
[2016-09-21] MEDS: oxyCODONE 5 MG Tab PO PRN ×4 (07:17→20:28)
[2016-09-21] MEDS: Pramipexole 0.5 MG Tab PO SCH ×3 (08:52→20:02)
[2016-09-21] MEDS: Bacitracin Oint 28.35 GM Tube TOP SCH ×3 (08:53→20:02)
[2016-09-21] MEDS: Spironolactone 25 MG Tab PO SCH (08:53)
[2016-09-21] MEDS: Rifaximin 550 MG Tab PO SCH ×2 (08:53→20:02)
[2016-09-21] MEDS: Lactulose Soln 10 GM/15 ML 15 ML UD Cup PO SCH (08:53)
[2016-09-21] MEDS ORDERED: Sodium Chloride 0.9% 10 ML Syringe FLUSH PRN (12:54)
[2016-09-21] MEDS: Morphine 2 MG/ML Syringe IVPUSH PRN ×4 (13:18→20:16)
[2016-09-21] MEDS: Sodium Chloride 0.9% 10 ML Syringe FLUSH PRN ×2 (13:20→13:25)
[2016-09-21] MEDS ORDERED: Furosemide 40 MG/4 ML VIAL IVPUSH ONE ×2 (13:30→19:24)
--- NOTE | 2016-09-21 13:48 | US ---
Abdomen Ltd HISTORY: Ascites COMPARISON: Abdominal ultrasound 08/21/2016. FINDINGS: Small amount of fluid in the right and left lower quadrants. This is not significant schmidt e from prior ultrasound 08/21/2016. No findings to suggest increased ascites from the prior ultrasoun d.
[2016-09-21] MEDS ORDERED: Levofloxacin/Dextrose 5%-Water 500 MG in Premix Bag 1 BAG IV SCH (19:00)
--- NOTE | 2016-09-21 19:05 | PCM.PN ---
- General Info Date of Service: 09/21/16 Subjective Update: Jonathan is having significant pain in the scrotum at noon we evaluated him and was red and is still red and painful this afternoon he said pain level of 8-9/ 10 it is sharp type pain. He's had it before but not as bad. He did get some relief from morphine which we given him earlier. - Review of Systems General: Reports: Weakness HEENT: Reports: no symptoms Pulmonary: Reports: no symptoms Cardiovascular: Reports: No Symptoms Gastrointestinal: Reports: Abdominal pain Genitourinary: Reports: other (scrotal pain) Musculoskeletal: Reports: no symptoms Neurological: Reports: No Symptoms Psychiatric: Reports: anxiety - Patient Data Vitals - most recent: Last Vital Signs Temp 99.9 F 09/21/16 14:39 Pulse 75 09/21/16 14:39 Resp 18 09/21/16 14:39 BP 139/82 09/21/16 14:39 Pulse Ox 97 09/21/16 14:39 Weight - most recent: 244 lb 1.6 oz I&O - last 24 hours: Intake & Output 09/21/16 09/21/16 09/21/16 06:59 14:59 22:59 Intake Total 480 1800 240 Output Total 600 500 Balance 480 1200 -260 Med Orders - Current: Current Medications Bacitracin (Bacitracin Oint) 0 gm TOP TID [facility] Last Admin: 09/21/16 13:29 Dose: 1 applicful Diphenoxylate HCl/Atropine (Lomotil 0.025-2.5 Mg) 1 tab PO Q6H PRN PRN Reason: Diarrhea Lactulose (Chronulac) 5 gm PO DAILY [facility] Last Admin: 09/21/16 08:53 Dose: 5 gm Morphine Sulfate (Morphine) 2 mg IVPUSH Q1H PRN PRN Reason: Pain Last Admin: 09/21/16 16:39 Dose: 2 mg Ondansetron HCl (Zofran Odt) 4 mg PO Q6H PRN PRN Reason: Nausea or vomiting Oxycodone HCl (Oxycodone) 10 mg PO Q4H PRN PRN Reason: Pain Last Admin: 09/21/16 16:37 Dose: 10 mg Pramipexole Dihydrochloride (Mirapex) 1 mg PO TID [facility] Last Admin: 09/21/16 13:27 Dose: 1 mg Rifaximin (Xifaxan) 550 mg PO BID [facility] Last Admin: 09/21/16 08:53 Dose: 550 mg Sodium Chloride (Saline Flush) 10 ml FLUSH ASDIRECTED PRN PRN Reason: Keep Vein Open Last Admin: 09/21/16 13:25 Dose: 10 ml Sodium Chloride (Saline Flush) 10 ml FLUSH ASDIRECTED PRN PRN Reason: Keep Vein Open Spironolactone (Aldactone) 25 mg PO DAILY [facility] Last Admin: 09/21/16 08:53 Dose: 25 mg Discontinued Medications Acetaminophen (Tylenol Extra Strength) 1,000 mg PO ONETIME ONE Stop: 09/15/16 20:07 Last Admin: 09/15/16 20:18 Dose: 1,000 mg Furosemide (Lasix) 40 mg IVPUSH ONETIME ONE Stop: 09/21/16 13:31 Last Admin: 09/21/16 13:19 Dose: 40 mg Lactated Ringer's (Ringers, Lactated) 1,000 mls @ 1,000 mls/hr IV BOLUS ONE Stop: 09/15/16 21:04 Last Admin: 09/15/16 20:25 Dose: 1,000 mls/hr Lactated Ringer's (Ringers, Lactated) 1,000 mls @ 125 mls/hr IV ASDIRECTED [facility] Last Admin: 09/15/16 21:48 Dose: 125 mls/hr Lactulose (Chronulac) 10 gm PO DAILY [facility] Last Admin: 09/17/16 08:50 Dose: 10 gm Morphine Sulfate (Morphine) 4 mg IVPUSH ONETIME ONE Stop: 09/15/16 20:04 Last Admin: 09/15/16 20:19 Dose: 4 mg Morphine Sulfate (Morphine) 2 mg IVPUSH ONETIME ONE Stop: 09/15/16 21:16 Last Admin: 09/15/16 22:50 Dose: 2 mg Ondansetron HCl (Zofran) 4 mg IVPUSH ONETIME ONE Stop: 09/15/16 20:40 Last Admin: 09/15/16 20:44 Dose: 4 mg Pramipexole Dihydrochloride (Mirapex) Confirm Administered Dose 1 mg .ROUTE .STK -MED ONE Stop: 09/15/16 23:31 Last Admin: 09/16/16 00:58 Dose: 1 mg - Exam General: alert, oriented HEENT: Pupils equal, Pupils reactive, EOMI, Mucous membr. moist/pink Neck: supple Lungs: Clear to auscultation, Normal respiratory effort Cardiovascular: Regular Rate, Regular Rhythm Abdomen: tenderness, distension (Male) Exam: Scrotum tenderness (L), Scrotum tenderness (R), Other (The penis is also swollen.) Extremities: edema (Is also redness of both legs worse on the right than the left) Peripheral Pulses: 1+: radial (L), radial (R) Psy/Mental Status: anxious - Problem List Review Problem List Initiated/Reviewed/Updated: Yes - My Orders Last 24 Hours: My Active Orders 09/21/16 12:47 Morphine 2 mg IVPUSH Q1H PRN 09/21/16 12:54 Sodium Chloride 0.9% [Saline Flush] 10 ml FLUSH ASDIRECTED PRN Saline Lock Insert [OM.PC] Routine - Plan Plan:: Assessment/plan: #1. Adenocarcinoma of the liver with metastasis. This is a terminal situation with fluid in his abdomen. He needs to be in a care facility so are her care can be given as soon as his insurance dilemma is resolved. He needs to be in a care facility due to his liver dysfunction which is causing his generalized weakness and mental challenge. #2. Hepatic encephalopathy. Ammonia slightly elevated. #3. Cellulitis lower extremities. #4. Restless leg syndrome. We'll continue with Mirapex. #5. Hypertension. His blood pressure was elevated earlier and 144/77 this evening.. #6. Hepatitis C. this is the cause of the adenocarcinoma of the liver. #7. Marijuana and methamphetamine abuse. #8. Anemia: Yesterday the Hb was 8.4 today was 8.7. Retic count 3.5. #9. Scrotal pain: This is much worse today than it was yesterday I gave him Lasix will give more this evening also gave him morphine for pain. The ultrasound did not show a lot of abdominal fluid. The scrotal problems. Would make one concerned if there is a lymph blockage for the scrotum. I will give more Lasix tonight and see if we can dehydrate him to see improvement.
[2016-09-22] MEDS: oxyCODONE 5 MG Tab PO PRN ×5 (00:42→20:18)
[2016-09-22] MEDS: Dimethicone 20%/Zinc Oxide 25% 56 GM Spray Bottle TOP PRN ×2 (00:43→08:07)
[2016-09-22] MEDS: Morphine 2 MG/ML Syringe IVPUSH PRN ×10 (00:47→23:07)
[2016-09-22] MEDS: Pramipexole 0.5 MG Tab PO SCH ×3 (08:11→20:22)
[2016-09-22] MEDS: Spironolactone 25 MG Tab PO SCH (08:12)
[2016-09-22] MEDS: Bacitracin Oint 28.35 GM Tube TOP SCH ×3 (08:12→20:19)
[2016-09-22] MEDS: Rifaximin 550 MG Tab PO SCH ×2 (08:13→20:17)
[2016-09-22] MEDS: Lactulose Soln 10 GM/15 ML 15 ML UD Cup PO SCH (08:13)
--- NOTE | 2016-09-22 11:49 | US ---
Scrotum and Contents HISTORY: Evaluate for scrotal fluid COMPARISON: None FINDINGS: No significant hydrocele bilaterally there is extensive scrotal wall thickening.
[2016-09-22] MEDS ORDERED: Furosemide 40 MG Tab PO SCH (16:00)
--- NOTE | 2016-09-22 16:06 | PCM.PN ---
- General Info Date of Service: 09/22/16 Subjective Update: Scrotal swelling - Review of Systems General: Reports: Weakness HEENT: Reports: no symptoms Pulmonary: Reports: shortness of breath Cardiovascular: Reports: No Symptoms Gastrointestinal: Reports: Decreased appetite Genitourinary: Reports: frequency Psychiatric: Reports: depression - Patient Data Vitals - most recent: Last Vital Signs Temp 98.4 F 09/22/16 14:00 Pulse 75 09/22/16 14:00 Resp 20 09/22/16 14:00 BP 163/84 H 09/22/16 14:00 Pulse Ox 98 09/22/16 14:00 Weight - most recent: 242 lb I&O - last 24 hours: Intake & Output 09/22/16 09/22/16 09/22/16 06:59 14:59 22:59 Intake Total 1040 Output Total 201 300 Balance -201 740 Med Orders - Current: Current Medications Bacitracin (Bacitracin Oint) 0 gm TOP TID [facility] Last Admin: 09/22/16 14:04 Dose: 1 applicful Dimethicone/Zinc Oxide (Rash Relief-Zinc Oxide [place]) 1 - 2 gm TOP Q1H PRN PRN Reason: Rash Last Admin: 09/22/16 08:07 Dose: 1 applic Diphenoxylate HCl/Atropine (Lomotil 0.025-2.5 Mg) 1 tab PO Q6H PRN PRN Reason: Diarrhea Levofloxacin/Dextrose 500 mg/ (Premix) 100 mls @ 100 mls/hr IV Q24H [facility] Lactulose (Chronulac) 5 gm PO DAILY [facility] Last Admin: 09/22/16 08:13 Dose: 5 gm Morphine Sulfate (Morphine) 2 mg IVPUSH Q1H PRN PRN Reason: Pain Last Admin: 09/22/16 14:05 Dose: 2 mg Ondansetron HCl (Zofran Odt) 4 mg PO Q6H PRN PRN Reason: Nausea or vomiting Oxycodone HCl (Oxycodone) 10 mg PO Q4H PRN PRN Reason: Pain Last Admin: 09/22/16 14:04 Dose: 10 mg Pramipexole Dihydrochloride (Mirapex) 1 mg PO TID [facility] Last Admin: 09/22/16 14:02 Dose: 1 mg Rifaximin (Xifaxan) 550 mg PO BID [facility] Last Admin: 09/22/16 08:13 Dose: 550 mg Sodium Chloride (Saline Flush) 10 ml FLUSH ASDIRECTED PRN PRN Reason: Keep Vein Open Last Admin: 09/21/16 13:25 Dose: 10 ml Sodium Chloride (Saline Flush) 10 ml FLUSH ASDIRECTED PRN PRN Reason: Keep Vein Open Spironolactone (Aldactone) 25 mg PO DAILY [facility] Last Admin: 09/22/16 08:12 Dose: 25 mg Discontinued Medications Acetaminophen (Tylenol Extra Strength) 1,000 mg PO ONETIME ONE Stop: 09/15/16 20:07 Last Admin: 09/15/16 20:18 Dose: 1,000 mg Furosemide (Lasix) 40 mg IVPUSH ONETIME ONE Stop: 09/21/16 13:31 Last Admin: 09/21/16 13:19 Dose: 40 mg Furosemide (Lasix) 40 mg IVPUSH ONETIME ONE Stop: 09/21/16 19:25 Last Admin: 09/21/16 20:01 Dose: 40 mg Lactated Ringer's (Ringers, Lactated) 1,000 mls @ 1,000 mls/hr IV BOLUS ONE Stop: 09/15/16 21:04 Last Admin: 09/15/16 20:25 Dose: 1,000 mls/hr Lactated Ringer's (Ringers, Lactated) 1,000 mls @ 125 mls/hr IV ASDIRECTED [facility] Last Admin: 09/15/16 21:48 Dose: 125 mls/hr Levofloxacin/Dextrose 500 mg/ (Premix) 100 mls @ 100 mls/hr IV Q24H [facility] Last Admin: 09/21/16 20:09 Dose: 100 mls/hr Lactulose (Chronulac) 10 gm PO DAILY [facility] Last Admin: 09/17/16 08:50 Dose: 10 gm Lidocaine HCl (Xylocaine-Mpf 1%) Confirm Administered Dose 5 ml .ROUTE .STK-MED ONE Stop: 09/22/16 08:39 Morphine Sulfate (Morphine) 4 mg IVPUSH ONETIME ONE Stop: 09/15/16 20:04 Last Admin: 09/15/16 20:19 Dose: 4 mg Morphine Sulfate (Morphine) 2 mg IVPUSH ONETIME ONE Stop: 09/15/16 21:16 Last Admin: 09/15/16 22:50 Dose: 2 mg Ondansetron HCl (Zofran) 4 mg IVPUSH ONETIME ONE Stop: 09/15/16 20:40 Last Admin: 09/15/16 20:44 Dose: 4 mg Pramipexole Dihydrochloride (Mirapex) Confirm Administered Dose 1 mg .ROUTE .STK -MED ONE Stop: 09/15/16 23:31 Last Admin: 09/16/16 00:58 Dose: 1 mg - Exam General: alert, oriented, cooperative HEENT: Pupils equal, Pupils reactive, EOMI, Mucous membr. moist/pink Neck: supple Lungs: Clear to auscultation, Normal respiratory effort Cardiovascular: Regular Rate, Regular Rhythm Abdomen: distension (Male) Exam: Scrotal swelling, Scrotum tenderness (L), Scrotum tenderness (R) Extremities: calf tenderness, edema Peripheral Pulses: 1+: radial (L), radial (R) Psy/Mental Status: depressed - Problem List Review Problem List Initiated/Reviewed/Updated: Yes - My Orders Last 24 Hours: My Active Orders 09/21/16 18:20 CULTURE BLOOD [BC] Urgent 09/21/16 18:30 CULTURE BLOOD [BC] Urgent 09/21/16 19:22 Blood Culture x2 Reflex Set [OM.PC] Urgent 09/21/16 21:12 Dimethicone/Zinc Oxide [Rash Relief-Zinc Oxide [place]] 1 - 2 gm TOP Q1H PRN 09/22/16 16:00 Furosemide [Lasix] 40 mg PO BID 09/22/16 20:00 Levofloxacin/Dextrose 5%-Water [Levaquin in D5W 500 MG/100 ML] 500 mg Premix Bag 1 bag IV Q24H 09/23/16 05:11 CBC WITH AUTO DIFF [HEME] Routine COMPREHENSIVE METABOLIC PN,CMP [CHEM] Routine 09/23/16 08:00 Metolazone [Zaroxolyn] 5 mg PO BIDDIURETIC - Plan Plan:: Assessment/plan: #1. Adenocarcinoma of the liver with metastasis. This is a terminal situation with fluid in his abdomen. He needs to be in a care facility so are her care can be given as soon as his insurance dilemma is resolved. He needs to be in a care facility due to his liver dysfunction which is causing his generalized weakness and mental challenge. #2. Hepatic encephalopathy. Ammonia slightly elevated. #3. Cellulitis lower extremities. #4. Restless leg syndrome. We'll continue with Mirapex. #5. Hypertension. His blood pressure was elevated earlier and 163/84 #6. Hepatitis C. this is the cause of the adenocarcinoma of the liver. #7. Marijuana and methamphetamine abuse. #8. Anemia: Yesterday the Hb was 8.4 today was 8.7. Retic count 3.5. #9. Scrotal pain: This is much worse today than it was yesterday I gave him Lasix will give more this evening also gave him morphine for pain. The ultrasound did not show a lot of abdominal fluid. The scrotal problems would make one concerned if there is a lymph blockage of the scrotum. Attenpted aspiration of the scrotum this morning and no fluid was found. Surgeon consulted and U/S was done which showed edema without fluid in the scrotum. I will begin more aggressive diuretics. Will repeat blood work tomorrow.
[2016-09-22] MEDS: Furosemide 40 MG Tab PO SCH ×2 (16:22→20:17)
--- NOTE | 2016-09-22 17:51 | CONS ---
DATE OF SERVICE: 09/22/2016 REFERRING PHYSICIAN: CONSULTING PHYSICIAN: Jonathan Grove MD REASON FOR CONSULTATION: Evaluation of scrotal swelling. HISTORY OF PRESENT ILLNESS: This is a pleasant 61-year-old male, who is a patient of Dr. Wei Umaña. The patient was noted to have a hepatocellular carcinoma with increased scrotal swelling. He has pain which is 1 to 2/10, this is a new problem. This was attempted to be previously drained. PAST MEDICAL HISTORY: Hepatocellular carcinoma, draining of ascites fluid, arrhythmia, pacemaker, cirrhosis as described above, hepatitis, diverticulitis, ulcers, renal stones, neck pain, back pain, laminectomy, type 2 diabetes, anemia, history of MRSA. PAST SURGICAL HISTORY: Paracentesis, [place] shunt, lithotripsy, laminectomy, adenectomy, and tonsillectomy. SOCIAL HISTORY: The patient currently smokes. FAMILY HISTORY: Noncontributory. REVIEW OF SYSTEMS: GENERAL: The patient continues to decompensate, however, this is expected based upon his comorbidities. In general, he has worsening fatigue. HEENT: No symptoms. PULMONARY: No change in symptoms. CARDIOVASCULAR: No change in symptoms GASTROINTESTINAL: No change in symptoms. GENITOURINARY: No dysuria. SKIN: The patient reports decreased edema. The remainder review of systems is reviewed and is negative. PHYSICAL EXAMINATION: VITAL SIGNS: Temperature 97.3, blood pressure 144/72, pulse 76, respirations 18, 94% on room air. HEENT: Pupils are equal. NECK: Supple. LUNGS: Clear. ABDOMEN: No rebound or guarding. EXTREMITIES: Edema. SKIN: Shows significant lower extremity edema. LABORATORY RESULTS: White blood cell count is normal, hemoglobin is 8.4, platelets of 65,000. His scrotal ultrasound, which I did review does not show any evidence of fluid collection. No significant targets drain. No hernia. The patient has a very small hydrocele which is inconsequential. The abdominal ultrasound, which I did review also did not show any evidence of fluid collection. ASSESSMENT AND PLAN: Lower extremity edema. This is secondary to his comorbidities and his unfortunate hepatocellular carcinoma diagnosis combined with his cirrhosis and hepatitis. RECOMMENDATIONS: Palliative care which includes a compression and elevation and assist with ambulation. As far as draining any targets, there was no targets to be drained at this time. Dr. Umaña will continue to see and manage the general medical aspect of this care. Jonathan Grove MD /[id number]
[2016-09-22] MEDS: Levofloxacin/Dextrose 5%-Water 500 MG in Premix Bag 1 BAG IV SCH (20:20)
[2016-09-23] MEDS: Morphine 2 MG/ML Syringe IVPUSH PRN ×6 (03:26→19:09)
[2016-09-23] MEDS: oxyCODONE 5 MG Tab PO PRN ×5 (03:26→23:58)
[2016-09-23] MEDS ORDERED: Metolazone 2.5 MG Tab PO SCH (08:00)
[2016-09-23] MEDS: Lactulose Soln 10 GM/15 ML 15 ML UD Cup PO SCH (08:16)
[2016-09-23] MEDS: Bacitracin Oint 28.35 GM Tube TOP SCH ×3 (08:16→22:25)
[2016-09-23] MEDS: Furosemide 40 MG Tab PO SCH ×3 (08:17→22:26)
[2016-09-23] MEDS: Pramipexole 0.5 MG Tab PO SCH ×3 (08:17→22:27)
[2016-09-23] MEDS: Rifaximin 550 MG Tab PO SCH ×2 (08:17→22:27)
[2016-09-23] MEDS: Spironolactone 25 MG Tab PO SCH (08:18)
--- NOTE | 2016-09-23 08:40 | PCM.PN ---
- General Info Date of Service: 09/23/16 Admission Dx/Problem (Free Text): He continues to have swelling of the scrotum there is minimal improvement. His penis is also swollen as well as his legs. He does have pain as well. - Review of Systems General: Reports: Weakness, Fatigue, Appetite HEENT: Reports: no symptoms Pulmonary: Reports: shortness of breath Cardiovascular: Reports: No Symptoms Gastrointestinal: Reports: Diarrhea Genitourinary: Reports: no symptoms Musculoskeletal: Reports: back pain, joint pain Neurological: Reports: Difficulty Walking, Weakness, Gait Disturbance Psychiatric: Reports: depression - Patient Data Vitals - most recent: Last Vital Signs Temp 98.0 F 09/23/16 07:00 Pulse 71 09/23/16 07:00 Resp 20 09/23/16 07:00 BP 128/65 09/23/16 07:00 Pulse Ox 96 09/23/16 07:00 Weight - most recent: 239 lb 6.4 oz I&O - last 24 hours: Intake & Output 09/22/16 09/23/16 09/23/16 22:59 06:59 14:59 Intake Total 340 400 960 Output Total 350 300 Balance -10 100 960 Lab Results last 24 hrs: Laboratory Results - last 24 hr 09/23/16 09/23/16 Range/Units 05:54 05:54 WBC 6.0 (4.5-11.0) K/uL RBC 3.06 L (4.30-5.90) M/uL Hgb 9.1 L (12.0-15.0) g/dL Hct 26.9 L (40.0-54.0) % MCV 88 (80-98) fL MCH 30 (27-31) pg MCHC 34 (32-36) % Plt Count 79 L (150-400) K/uL Neut % (Auto) 64 (36-66) % Lymph % (Auto) 13 L (24-44) % Dickinson % (Auto) 12 H (2-6) % Eos % (Auto) 10 H (2-4) % Baso % (Auto) 2 H (0-1) % Sodium 139 L (140-148) mmol/L Potassium 4.1 (3.6-5.2) mmol/L Chloride 107 (100-108) mmol/L Carbon Dioxide 25 (21-32) mmol/L Anion Gap 11.1 (5.0-14.0) mmol/L BUN 30 H (7-18) mg/dL Creatinine 1.1 (0.8-1.3) mg/dL Est Cr Clr Drug Dosing 77.31 mL/min Estimated GFR (MDRD) > 60 (>60) Glucose 121 H (74-106) mg/dL Calcium 7.3 L (8.5-10.1) mg/dL Total Bilirubin 1.1 H (0.2-1.0) mg/dL AST 85 H (15-37) U/L ALT 79 H (12-78) U/L Alkaline Phosphatase 94 (46-116) U/L Total Protein 7.1 (6.4-8.2) g/dL Albumin 1.8 L (3.4-5.0) g/dL Globulin 5.3 H (2.3-3.5) g/dL Albumin/Globulin Ratio 0.3 L (1.2-2.2) [place] Results last 24 hrs: Microbiology 09/21/16 18:30 Aerobic Blood Culture - Preliminary Blood - Venous - Lab Draw NO GROWTH AFTER 1 DAY Anaerobic Blood Culture - Preliminary NO GROWTH AFTER 1 DAY 09/21/16 18:20 Aerobic Blood Culture - Preliminary Blood - Venous NO GROWTH AFTER 1 DAY Anaerobic Blood Culture - Preliminary NO GROWTH AFTER 1 DAY Med Orders - Current: Current Medications Bacitracin (Bacitracin Oint) 0 gm TOP TID [facility] Last Admin: 09/23/16 08:16 Dose: 1 applicful Dimethicone/Zinc Oxide (Rash Relief-Zinc Oxide [place]) 1 - 2 gm TOP Q1H PRN PRN Reason: Rash Last Admin: 09/22/16 08:07 Dose: 1 applic Diphenoxylate HCl/Atropine (Lomotil 0.025-2.5 Mg) 1 tab PO Q6H PRN PRN Reason: Diarrhea Furosemide (Lasix) 40 mg PO BID [facility] Last Admin: 09/23/16 08:17 Dose: 40 mg Levofloxacin/Dextrose 500 mg/ (Premix) 100 mls @ 100 mls/hr IV Q24H [facility] Last Admin: 09/22/16 20:20 Dose: 100 mls/hr Lactulose (Chronulac) 5 gm PO DAILY [facility] Last Admin: 09/23/16 08:16 Dose: 5 gm Metolazone (Zaroxolyn) 5 mg PO BIDDIURETIC [facility] Last Admin: 09/23/16 07:51 Dose: 5 mg Morphine Sulfate (Morphine) 2 mg IVPUSH Q1H PRN PRN Reason: Pain Last Admin: 09/23/16 07:50 Dose: 2 mg Ondansetron HCl (Zofran Odt) 4 mg PO Q6H PRN PRN Reason: Nausea or vomiting Oxycodone HCl (Oxycodone) 10 mg PO Q4H PRN PRN Reason: Pain Last Admin: 09/23/16 07:50 Dose: 10 mg Pramipexole Dihydrochloride (Mirapex) 1 mg PO TID [facility] Last Admin: 09/23/16 08:17 Dose: 1 mg Rifaximin (Xifaxan) 550 mg PO BID [facility] Last Admin: 09/23/16 08:17 Dose: 550 mg Sodium Chloride (Saline Flush) 10 ml FLUSH ASDIRECTED PRN PRN Reason: Keep Vein Open Spironolactone (Aldactone) 25 mg PO DAILY [facility] Last Admin: 09/23/16 08:18 Dose: 25 mg Discontinued Medications Acetaminophen (Tylenol Extra Strength) 1,000 mg PO ONETIME ONE Stop: 09/15/16 20:07 Last Admin: 09/15/16 20:18 Dose: 1,000 mg Furosemide (Lasix) 40 mg IVPUSH ONETIME ONE Stop: 09/21/16 13:31 Last Admin: 09/21/16 13:19 Dose: 40 mg Furosemide (Lasix) 40 mg IVPUSH ONETIME ONE Stop: 09/21/16 19:25 Last Admin: 09/21/16 20:01 Dose: 40 mg Lactated Ringer's (Ringers, Lactated) 1,000 mls @ 1,000 mls/hr IV BOLUS ONE Stop: 09/15/16 21:04 Last Admin: 09/15/16 20:25 Dose: 1,000 mls/hr Lactated Ringer's (Ringers, Lactated) 1,000 mls @ 125 mls/hr IV ASDIRECTED [facility] Last Admin: 09/15/16 21:48 Dose: 125 mls/hr Levofloxacin/Dextrose 500 mg/ (Premix) 100 mls @ 100 mls/hr IV Q24H [facility] Last Admin: 09/21/16 20:09 Dose: 100 mls/hr Lactulose (Chronulac) 10 gm PO DAILY [facility] Last Admin: 09/17/16 08:50 Dose: 10 gm Lidocaine HCl (Xylocaine-Mpf 1%) Confirm Administered Dose 5 ml .ROUTE .STK-MED ONE Stop: 09/22/16 08:39 Last Admin: 09/22/16 23:03 Dose: Not Given Morphine Sulfate (Morphine) 4 mg IVPUSH ONETIME ONE Stop: 09/15/16 20:04 Last Admin: 09/15/16 20:19 Dose: 4 mg Morphine Sulfate (Morphine) 2 mg IVPUSH ONETIME ONE Stop: 09/15/16 21:16 Last Admin: 09/15/16 22:50 Dose: 2 mg Ondansetron HCl (Zofran) 4 mg IVPUSH ONETIME ONE Stop: 09/15/16 20:40 Last Admin: 09/15/16 20:44 Dose: 4 mg Pramipexole Dihydrochloride (Mirapex) Confirm Administered Dose 1 mg .ROUTE .STK -MED ONE Stop: 09/15/16 23:31 Last Admin: 09/16/16 00:58 Dose: 1 mg Sodium Chloride (Saline Flush) 10 ml FLUSH ASDIRECTED PRN PRN Reason: Keep Vein Open Last Admin: 09/21/16 13:25 Dose: 10 ml - Exam General: alert, oriented HEENT: Pupils equal, Pupils reactive, EOMI, Mucous membr. moist/pink Neck: supple Lungs: Clear to auscultation, Normal respiratory effort Cardiovascular: Regular Rate, Regular Rhythm (Male) Exam: Scrotal swelling, Testicular tenderness (L) Extremities: edema Peripheral Pulses: 1+: radial (L), radial (R) Skin: warm, dry Psy/Mental Status: alert - Problem List Review Problem List Initiated/Reviewed/Updated: Yes - My Orders Last 24 Hours: My Active Orders 09/22/16 16:00 Furosemide [Lasix] 40 mg PO BID 09/22/16 20:00 Levofloxacin/Dextrose 5%-Water [Levaquin in D5W 500 MG/100 ML] 500 mg Premix Bag 1 bag IV Q24H 09/23/16 08:00 Metolazone [Zaroxolyn] 5 mg PO BIDDIURETIC - Plan Plan:: Assessment/plan: #1. Adenocarcinoma of the liver with metastasis. This is a terminal situation with fluid in his abdomen. He needs to be in a care facility so are her care can be given as soon as his insurance dilemma is resolved. He needs to be in a care facility due to his liver dysfunction which is causing his generalized weakness and mental challenge. #2. Hepatic encephalopathy. Stable at present. #3. Cellulitis lower extremities. Chronic #4. Restless leg syndrome. We'll continue with Mirapex. #5. Hypertension. His blood pressure was elevated earlier and 164/83 #6. Hepatitis C. this is the cause of the adenocarcinoma of the liver. #7. Marijuana and methamphetamine abuse. #8. Anemia: Hemoglobin 9.1 improved because of water loss. #9. Scrotal pain: We'll continue with increased headaches and safely do see improvement by tomorrow if not improved we'll consider giving him albumin even though he does have liver problems.
[2016-09-23] MEDS: Metolazone 2.5 MG Tab PO SCH ×2 (10:37→15:58)
[2016-09-23] MEDS: Levofloxacin/Dextrose 5%-Water 500 MG in Premix Bag 1 BAG IV SCH (19:09)
[2016-09-24] MEDS: Morphine 2 MG/ML Syringe IVPUSH PRN ×9 (00:03→23:44)
[2016-09-24] MEDS: oxyCODONE 5 MG Tab PO PRN ×4 (05:06→19:57)
[2016-09-24] MEDS: Metolazone 2.5 MG Tab PO SCH ×3 (08:13→17:40)
[2016-09-24] MEDS: Spironolactone 25 MG Tab PO SCH (08:14)
[2016-09-24] MEDS: Bacitracin Oint 28.35 GM Tube TOP SCH ×3 (08:14→20:01)
[2016-09-24] MEDS: Lactulose Soln 10 GM/15 ML 15 ML UD Cup PO SCH (08:15)
[2016-09-24] MEDS: Pramipexole 0.5 MG Tab PO SCH ×3 (08:16→20:00)
[2016-09-24] MEDS: Furosemide 40 MG Tab PO SCH ×3 (08:16→20:00)
[2016-09-24] MEDS: Rifaximin 550 MG Tab PO SCH ×2 (08:17→20:01)
--- NOTE | 2016-09-24 10:40 | PCM.PN ---
- General Info Date of Service: 09/24/16 Subjective Update: Jonathan has had no improvement in his swelling he says.. He has lost a significant amount of fluid. Functional Status: Reports: pain controlled - Review of Systems General: Reports: Weakness HEENT: Reports: no symptoms Pulmonary: Reports: no symptoms Cardiovascular: Reports: No Symptoms Gastrointestinal: Reports: No symptoms Genitourinary: Reports: frequency Musculoskeletal: Reports: back pain, leg pain Skin: Reports: pruritis Psychiatric: Reports: no symptoms - Patient Data Vitals - most recent: Last Vital Signs Temp 98.7 F 09/24/16 07:41 Pulse 80 09/24/16 07:41 Resp 18 09/24/16 07:41 BP 138/91 H 09/24/16 07:41 Pulse Ox 97 09/24/16 07:41 Weight - most recent: 239 lb 6.4 oz I&O - last 24 hours: Intake & Output 09/23/16 09/24/16 09/24/16 22:59 06:59 14:59 Intake Total 600 1900 Output Total 100 Balance 500 1900 [place] Results last 24 hrs: Microbiology 09/21/16 18:30 Aerobic Blood Culture - Preliminary Blood - Venous - Lab Draw NO GROWTH AFTER 2 DAYS Anaerobic Blood Culture - Preliminary NO GROWTH AFTER 2 DAYS 09/21/16 18:20 Aerobic Blood Culture - Preliminary Blood - Venous NO GROWTH AFTER 2 DAYS Anaerobic Blood Culture - Preliminary NO GROWTH AFTER 2 DAYS Med Orders - Current: Current Medications Bacitracin (Bacitracin Oint) 0 gm TOP TID [facility] Last Admin: 09/24/16 08:14 Dose: 1 applicful Dimethicone/Zinc Oxide (Rash Relief-Zinc Oxide [place]) 1 - 2 gm TOP Q1H PRN PRN Reason: Rash Last Admin: 09/22/16 08:07 Dose: 1 applic Diphenoxylate HCl/Atropine (Lomotil 0.025-2.5 Mg) 1 tab PO Q6H PRN PRN Reason: Diarrhea Furosemide (Lasix) 40 mg PO TID [facility] Last Admin: 09/24/16 08:16 Dose: 40 mg Levofloxacin/Dextrose 500 mg/ (Premix) 100 mls @ 100 mls/hr IV Q24H [facility] Last Admin: 09/23/16 19:09 Dose: 100 mls/hr Albumin Human 12.5 gm/ Premix 50 mls @ 25 mls/hr IV Q2H [facility] Stop: 09/24/16 14:29 Lactulose (Chronulac) 5 gm PO DAILY [facility] Last Admin: 09/24/16 08:15 Dose: 5 gm Metolazone (Zaroxolyn) 5 mg PO TIDAC [facility] Last Admin: 09/24/16 08:13 Dose: 5 mg Morphine Sulfate (Morphine) 2 mg IVPUSH Q1H PRN PRN Reason: Pain Last Admin: 09/24/16 10:05 Dose: 2 mg Ondansetron HCl (Zofran Odt) 4 mg PO Q6H PRN PRN Reason: Nausea or vomiting Oxycodone HCl (Oxycodone) 10 mg PO Q4H PRN PRN Reason: Pain Last Admin: 09/24/16 08:51 Dose: 10 mg Pramipexole Dihydrochloride (Mirapex) 1 mg PO TID [facility] Last Admin: 09/24/16 08:16 Dose: 1 mg Rifaximin (Xifaxan) 550 mg PO BID [facility] Last Admin: 09/24/16 08:17 Dose: 550 mg Sodium Chloride (Saline Flush) 10 ml FLUSH ASDIRECTED PRN PRN Reason: Keep Vein Open Last Admin: 09/23/16 15:59 Dose: 10 ml Spironolactone (Aldactone) 25 mg PO DAILY [facility] Last Admin: 09/24/16 08:14 Dose: 25 mg Discontinued Medications Acetaminophen (Tylenol Extra Strength) 1,000 mg PO ONETIME ONE Stop: 09/15/16 20:07 Last Admin: 09/15/16 20:18 Dose: 1,000 mg Furosemide (Lasix) 40 mg IVPUSH ONETIME ONE Stop: 09/21/16 13:31 Last Admin: 09/21/16 13:19 Dose: 40 mg Furosemide (Lasix) 40 mg IVPUSH ONETIME ONE Stop: 09/21/16 19:25 Last Admin: 09/21/16 20:01 Dose: 40 mg Furosemide (Lasix) 40 mg PO BID [facility] Last Admin: 09/23/16 08:17 Dose: 40 mg Lactated Ringer's (Ringers, Lactated) 1,000 mls @ 1,000 mls/hr IV BOLUS ONE Stop: 09/15/16 21:04 Last Admin: 09/15/16 20:25 Dose: 1,000 mls/hr Lactated Ringer's (Ringers, Lactated) 1,000 mls @ 125 mls/hr IV ASDIRECTED [facility] Last Admin: 09/15/16 21:48 Dose: 125 mls/hr Levofloxacin/Dextrose 500 mg/ (Premix) 100 mls @ 100 mls/hr IV Q24H [facility] Last Admin: 09/21/16 20:09 Dose: 100 mls/hr Lactulose (Chronulac) 10 gm PO DAILY [facility] Last Admin: 09/17/16 08:50 Dose: 10 gm Lidocaine HCl (Xylocaine-Mpf 1%) Confirm Administered Dose 5 ml .ROUTE .STK-MED ONE Stop: 09/22/16 08:39 Last Admin: 09/22/16 23:03 Dose: Not Given Metolazone (Zaroxolyn) 5 mg PO BIDDIURETIC [facility] Last Admin: 09/23/16 07:51 Dose: 5 mg Morphine Sulfate (Morphine) 4 mg IVPUSH ONETIME ONE Stop: 09/15/16 20:04 Last Admin: 09/15/16 20:19 Dose: 4 mg Morphine Sulfate (Morphine) 2 mg IVPUSH ONETIME ONE Stop: 09/15/16 21:16 Last Admin: 09/15/16 22:50 Dose: 2 mg Ondansetron HCl (Zofran) 4 mg IVPUSH ONETIME ONE Stop: 09/15/16 20:40 Last Admin: 09/15/16 20:44 Dose: 4 mg Pramipexole Dihydrochloride (Mirapex) Confirm Administered Dose 1 mg .ROUTE .STK -MED ONE Stop: 09/15/16 23:31 Last Admin: 09/16/16 00:58 Dose: 1 mg Sodium Chloride (Saline Flush) 10 ml FLUSH ASDIRECTED PRN PRN Reason: Keep Vein Open Last Admin: 09/21/16 13:25 Dose: 10 ml - Exam General: alert, oriented HEENT: Pupils equal, Pupils reactive, EOMI, Mucous membr. moist/pink Neck: supple Lungs: Clear to auscultation, Normal respiratory effort Cardiovascular: Regular Rate, Regular Rhythm Abdomen: tenderness, distension Extremities: edema (There is significant redness of both legs and edema up to the groin. The redness is mostly below his knees.) Peripheral Pulses: 1+: radial (L), radial (R) Skin: warm, dry, intact, rash Psy/Mental Status: alert - Problem List Review Problem List Initiated/Reviewed/Updated: Yes - My Orders Last 24 Hours: My Active Orders 09/23/16 11:00 Metolazone [Zaroxolyn] 5 mg PO TIDAC 09/23/16 14:00 Furosemide [Lasix] 40 mg PO TID 09/24/16 10:30 Albumin 25% [Flexbumin 25%] 12.5 gm Premix Bag 1 bag IV Q2H - Plan Plan:: Assessment/plan: #1. Adenocarcinoma of the liver with metastasis. This is a terminal situation with fluid in his abdomen. He needs to be in a care facility so are her care can be given as soon as his insurance dilemma is resolved. He needs to be in a care facility due to his liver dysfunction which is causing his generalized weakness and mental challenge. #2. Hepatic encephalopathy. Stable at present. #3. Cellulitis lower extremities. I have put a anaboot on his his legs. I' ve also given him 2 bottles of albumin which reduce the swelling in the leg as well as the scrotum. His albumin is low at 1.8 which is do to his liver disease as well. #4. Restless leg syndrome. We'll continue with Mirapex. #5. Hypertension. His blood pressure was elevated earlier and 164/83 #6. Hepatitis C. this is the cause of the adenocarcinoma of the liver. #7. Marijuana and methamphetamine abuse. #8. Anemia: Hemoglobin 9.1 improved because of water loss. #9. Scrotal pain: We'll continue with increased headaches and safely do see improvement by tomorrow if not improved we'll consider giving him albumin even though he does have liver problems.
[2016-09-24] MEDS: Albumin 25% 12.5 GM in Premix Bag 1 BAG IV SCH ×2 (11:49→14:25)
[2016-09-24] MEDS: Levofloxacin/Dextrose 5%-Water 500 MG in Premix Bag 1 BAG IV SCH (19:59)
[2016-09-25] MEDS: oxyCODONE 5 MG Tab PO PRN ×5 (01:08→22:50)
[2016-09-25] MEDS: Morphine 2 MG/ML Syringe IVPUSH PRN ×7 (01:09→21:01)
[2016-09-25] MEDS: Metolazone 2.5 MG Tab PO SCH ×3 (07:45→16:23)
[2016-09-25] MEDS: Bacitracin Oint 28.35 GM Tube TOP SCH ×3 (10:10→20:01)
[2016-09-25] MEDS: Spironolactone 25 MG Tab PO SCH (10:10)
[2016-09-25] MEDS: Lactulose Soln 10 GM/15 ML 15 ML UD Cup PO SCH (10:10)
[2016-09-25] MEDS: Rifaximin 550 MG Tab PO SCH ×2 (10:11→20:01)
[2016-09-25] MEDS: Pramipexole 0.5 MG Tab PO SCH ×3 (10:11→20:01)
[2016-09-25] MEDS: Furosemide 40 MG Tab PO SCH ×2 (10:11→14:48)
[2016-09-25] MEDS: Albumin 25% 12.5 GM in Premix Bag 1 BAG IV SCH ×2 (11:27→13:56)
--- NOTE | 2016-09-25 19:38 | PCM.PN ---
- General Info Date of Service: 09/25/16 Admission Dx/Problem (Free Text): He continues to significant swelling in his scrotum. His pain level is severe when he touches the scrotum. Functional Status: Reports: pain controlled - Review of Systems General: Reports: Weakness HEENT: Reports: no symptoms Pulmonary: Reports: no symptoms Cardiovascular: Reports: No Symptoms Gastrointestinal: Reports: Diarrhea Genitourinary: Reports: no symptoms Musculoskeletal: Reports: no symptoms Skin: Reports: rash (rash the legs as well as redness of the scrotum) Psychiatric: Reports: anxiety - Patient Data Vitals - most recent: Last Vital Signs Temp 98.8 F 09/25/16 15:00 Pulse 73 09/25/16 15:00 Resp 20 09/25/16 15:00 BP 121/65 09/25/16 15:00 Pulse Ox 98 09/25/16 15:00 Weight - most recent: 219 lb 14.4 oz I&O - last 24 hours: Intake & Output 09/25/16 09/25/16 09/25/16 06:59 14:59 22:59 Intake Total 720 1510 900 Output Total 550 300 Balance 170 1210 900 Lab Results last 24 hrs: Laboratory Results - last 24 hr 09/25/16 09/25/16 Range/Units 06:00 06:00 WBC 6.4 (4.5-11.0) K/uL RBC 3.13 L (4.30-5.90) M/uL Hgb 9.4 L (12.0-15.0) g/dL Hct 27.4 L (40.0-54.0) % MCV 88 (80-98) fL MCH 30 (27-31) pg MCHC 34 (32-36) % Plt Count 102 L (150-400) K/uL Neut % (Auto) 62 (36-66) % Lymph % (Auto) 15 L (24-44) % [place] % (Auto) 11 H (2-6) % Eos % (Auto) 9 H (2-4) % Baso % (Auto) 2 H (0-1) % Sodium 141 (140-148) mmol/L Potassium 3.9 (3.6-5.2) mmol/L Chloride 106 (100-108) mmol/L Carbon Dioxide 27 (21-32) mmol/L Anion Gap 7.6 (5.0-14.0) mmol/L BUN 35 H (7-18) mg/dL Creatinine 1.3 (0.8-1.3) mg/dL Est Cr Clr Drug Dosing 65.42 mL/min Estimated GFR (MDRD) 56 L (>60) Glucose 119 H (74-106) mg/dL Calcium 7.8 L (8.5-10.1) mg/dL Total Bilirubin 1.3 H (0.2-1.0) mg/dL AST 89 H (15-37) U/L ALT 83 H (12-78) U/L Alkaline Phosphatase 94 (46-116) U/L Total Protein 7.7 (6.4-8.2) g/dL Albumin 2.2 L (3.4-5.0) g/dL Globulin 5.5 H (2.3-3.5) g/dL Albumin/Globulin Ratio 0.4 L (1.2-2.2) [place] Results last 24 hrs: Microbiology 09/21/16 18:30 Aerobic Blood Culture - Preliminary Blood - Venous - Lab Draw NO GROWTH AFTER 3 DAYS Anaerobic Blood Culture - Preliminary NO GROWTH AFTER 3 DAYS 09/21/16 18:20 Aerobic Blood Culture - Preliminary Blood - Venous NO GROWTH AFTER 3 DAYS Anaerobic Blood Culture - Preliminary NO GROWTH AFTER 3 DAYS Med Orders - Current: Current Medications Bacitracin (Bacitracin Oint) 0 gm TOP TID [facility] Last Admin: 09/25/16 14:48 Dose: 1 applicful Dimethicone/Zinc Oxide (Rash Relief-Zinc Oxide [place]) 1 - 2 gm TOP Q1H PRN PRN Reason: Rash Last Admin: 09/22/16 08:07 Dose: 1 applic Diphenoxylate HCl/Atropine (Lomotil 0.025-2.5 Mg) 1 tab PO Q6H PRN PRN Reason: Diarrhea Furosemide (Lasix) 40 mg PO TID [facility] Last Admin: 09/25/16 14:48 Dose: 40 mg Lactulose (Chronulac) 5 gm PO DAILY [facility] Last Admin: 09/25/16 10:10 Dose: 5 gm Metolazone (Zaroxolyn) 5 mg PO TIDAC [facility] Last Admin: 09/25/16 16:23 Dose: 5 mg Morphine Sulfate (Morphine) 2 mg IVPUSH Q1H PRN PRN Reason: Pain Last Admin: 09/25/16 18:02 Dose: 2 mg Ondansetron HCl (Zofran Odt) 4 mg PO Q6H PRN PRN Reason: Nausea or vomiting Oxycodone HCl (Oxycodone) 10 mg PO Q4H PRN PRN Reason: Pain Last Admin: 09/25/16 18:02 Dose: 10 mg Pramipexole Dihydrochloride (Mirapex) 1 mg PO TID [facility] Last Admin: 09/25/16 14:48 Dose: 1 mg Rifaximin (Xifaxan) 550 mg PO BID [facility] Last Admin: 09/25/16 10:11 Dose: 550 mg Sodium Chloride (Saline Flush) 10 ml FLUSH ASDIRECTED PRN PRN Reason: Keep Vein Open Last Admin: 09/23/16 15:59 Dose: 10 ml Spironolactone (Aldactone) 25 mg PO DAILY [facility] Last Admin: 09/25/16 10:10 Dose: 25 mg Discontinued Medications Acetaminophen (Tylenol Extra Strength) 1,000 mg PO ONETIME ONE Stop: 09/15/16 20:07 Last Admin: 09/15/16 20:18 Dose: 1,000 mg Furosemide (Lasix) 40 mg IVPUSH ONETIME ONE Stop: 09/21/16 13:31 Last Admin: 09/21/16 13:19 Dose: 40 mg Furosemide (Lasix) 40 mg IVPUSH ONETIME ONE Stop: 09/21/16 19:25 Last Admin: 09/21/16 20:01 Dose: 40 mg Furosemide (Lasix) 40 mg PO BID [facility] Last Admin: 09/23/16 08:17 Dose: 40 mg Lactated Ringer's (Ringers, Lactated) 1,000 mls @ 1,000 mls/hr IV BOLUS ONE Stop: 09/15/16 21:04 Last Admin: 09/15/16 20:25 Dose: 1,000 mls/hr Lactated Ringer's (Ringers, Lactated) 1,000 mls @ 125 mls/hr IV ASDIRECTED [facility] Last Admin: 09/15/16 21:48 Dose: 125 mls/hr Levofloxacin/Dextrose 500 mg/ (Premix) 100 mls @ 100 mls/hr IV Q24H [facility] Last Admin: 09/21/16 20:09 Dose: 100 mls/hr Levofloxacin/Dextrose 500 mg/ (Premix) 100 mls @ 100 mls/hr IV Q24H [facility] Last Admin: 09/24/16 19:59 Dose: 100 mls/hr Albumin Human 12.5 gm/ Premix 50 mls @ 25 mls/hr IV Q2H [facility] Stop: 09/24/16 14:29 Last Admin: 09/24/16 14:25 Dose: 25 mls/hr Albumin Human 12.5 gm/ Premix 50 mls @ 25 mls/hr IV Q2H [facility] Stop: 09/25/16 13:29 Last Admin: 09/25/16 13:56 Dose: 25 mls/hr Lactulose (Chronulac) 10 gm PO DAILY [facility] Last Admin: 09/17/16 08:50 Dose: 10 gm Lidocaine HCl (Xylocaine-Mpf 1%) Confirm Administered Dose 5 ml .ROUTE .STK-MED ONE Stop: 09/22/16 08:39 Last Admin: 09/22/16 23:03 Dose: Not Given Metolazone (Zaroxolyn) 5 mg PO BIDDIURETIC [facility] Last Admin: 09/23/16 07:51 Dose: 5 mg Morphine Sulfate (Morphine) 4 mg IVPUSH ONETIME ONE Stop: 09/15/16 20:04 Last Admin: 09/15/16 20:19 Dose: 4 mg Morphine Sulfate (Morphine) 2 mg IVPUSH ONETIME ONE Stop: 09/15/16 21:16 Last Admin: 09/15/16 22:50 Dose: 2 mg Ondansetron HCl (Zofran) 4 mg IVPUSH ONETIME ONE Stop: 09/15/16 20:40 Last Admin: 09/15/16 20:44 Dose: 4 mg Pramipexole Dihydrochloride (Mirapex) Confirm Administered Dose 1 mg .ROUTE .STK -MED ONE Stop: 09/15/16 23:31 Last Admin: 09/16/16 00:58 Dose: 1 mg Sodium Chloride (Saline Flush) 10 ml FLUSH ASDIRECTED PRN PRN Reason: Keep Vein Open Last Admin: 09/21/16 13:25 Dose: 10 ml - Exam General: alert, oriented, mild distress HEENT: Pupils equal, Pupils reactive, EOMI, Mucous membr. moist/pink Neck: supple Lungs: Clear to auscultation, Normal respiratory effort Cardiovascular: Regular Rate, Regular Rhythm (Male) Exam: Scrotal swelling, Scrotum tenderness (L), Scrotum tenderness (R) Back Exam: normal inspection, full range of motion Peripheral Pulses: 1+: radial (L), radial (R) Skin: warm, dry, intact Neurological: no new focal deficit - Problem List Review Problem List Initiated/Reviewed/Updated: Yes - My Orders Last 24 Hours: My Active Orders 09/26/16 05:11 CBC WITH AUTO DIFF [HEME] Routine COMPREHENSIVE METABOLIC PN,CMP [CHEM] Routine - Plan Plan:: Assessment/plan: #1. Adenocarcinoma of the liver with metastasis. This is a terminal situation with fluid in his abdomen. He needs to be in a care facility so care can be given as soon as his insurance dilemma is resolved. His main problem now he swelling of the scrotum which I feel is secondary to his cancer with metastasis. He did have similar swelling prior to starting chemotherapy. He has been off his oral chemotherapy due to the expense of close to $3000 per month. #2. Hepatic encephalopathy. Stable at present. #3. Cellulitis lower extremities. I've also given him 2 more bottles of albumin which reduce the swelling in the leg as well as the scrotum. His albumin is low at 2.2 after 2 units of albumin given yesterday. #4. Restless leg syndrome. We'll continue with Mirapex. #5. Hypertension. His blood pressure was elevated earlier and 121/65 #6. Hepatitis C. this is the cause of the adenocarcinoma of the liver. #7. Marijuana and methamphetamine abuse. #8. Anemia: Hemoglobin 9.4 improved because of water loss. #9. Scrotal pain: secondary to lymph blockage because of his cancer. #10. His creatinine is elevating as we dehydrate him. I will decrease the diuretics.
[2016-09-25] MEDS ORDERED: Furosemide 40 MG Tab PO SCH (21:00)
[2016-09-25] MEDS ORDERED: Metolazone 2.5 MG Tab PO SCH (21:00)
[2016-09-26] MEDS: Morphine 2 MG/ML Syringe IVPUSH PRN ×3 (00:25→08:32)
[2016-09-26] MEDS: oxyCODONE 5 MG Tab PO PRN ×2 (03:01→08:31)
[2016-09-26] MEDS ORDERED: Metolazone 2.5 MG Tab PO SCH (08:00)
[2016-09-26] MEDS ORDERED: Furosemide 40 MG Tab PO SCH (08:00)
[2016-09-26 08:13] VITALS: BP 137/57
[2016-09-26] MEDS: Rifaximin 550 MG Tab PO SCH (08:34)
[2016-09-26] MEDS: Pramipexole 0.5 MG Tab PO SCH (08:34)
[2016-09-26] MEDS: Spironolactone 25 MG Tab PO SCH (08:34)
[2016-09-26] MEDS: Bacitracin Oint 28.35 GM Tube TOP SCH (08:35)
[2016-09-26] MEDS: Lactulose Soln 10 GM/15 ML 15 ML UD Cup PO SCH (08:35)
--- NOTE | 2016-09-26 10:17 | PCM.PN ---
- General Info Date of Service: 09/26/16 Admission Dx/Problem (Free Text): He continues to have swelling of the scrotum and penis without relief. He was to be taking Sorafenib but ran out and needed to arrange to have it given to him through a agency as the cost is close to $3000./month. His pain is being controlled with morphine. Functional Status: Reports: pain controlled - Review of Systems General: Reports: Weakness, Fatigue, Appetite HEENT: Reports: no symptoms Pulmonary: Reports: shortness of breath Cardiovascular: Reports: Edema Gastrointestinal: Reports: Other (soft stools 20-30 times daily.) Genitourinary: Reports: urgency, incontinence Musculoskeletal: Reports: back pain, joint pain Skin: Reports: rash Psychiatric: Reports: anxiety - Patient Data Vitals - most recent: Last Vital Signs Temp 98.5 F 09/26/16 08:11 Pulse 83 09/26/16 08:11 Resp 16 09/26/16 08:11 BP 137/57 L 09/26/16 08:11 Pulse Ox 95 09/26/16 08:11 Weight - most recent: 214 lb I&O - last 24 hours: Intake & Output 09/25/16 09/26/16 09/26/16 22:59 06:59 14:59 Intake Total 900 640 480 Output Total 200 Balance 900 440 480 Lab Results last 24 hrs: Laboratory Results - last 24 hr 09/26/16 09/26/16 Range/Units 04:50 04:50 WBC 6.2 (4.5-11.0) K/uL RBC 3.04 L (4.30-5.90) M/uL Hgb 8.8 L (12.0-15.0) g/dL Hct 26.6 L (40.0-54.0) % MCV 88 (80-98) fL MCH 29 (27-31) pg MCHC 33 (32-36) % Plt Count 102 L (150-400) K/uL Neut % (Auto) 58 (36-66) % Lymph % (Auto) 15 L (24-44) % [place] % (Auto) 13 H (2-6) % Eos % (Auto) 12 H (2-4) % Baso % (Auto) 1 (0-1) % Sodium 139 L (140-148) mmol/L Potassium 3.5 L (3.6-5.2) mmol/L Chloride 104 (100-108) mmol/L Carbon Dioxide 28 (21-32) mmol/L Anion Gap 10.5 (5.0-14.0) mmol/L BUN 35 H (7-18) mg/dL Creatinine 1.3 (0.8-1.3) mg/dL Est Cr Clr Drug Dosing 65.42 mL/min Estimated GFR (MDRD) 56 L (>60) Glucose 112 H (74-106) mg/dL Calcium 7.6 L (8.5-10.1) mg/dL Total Bilirubin 1.2 H (0.2-1.0) mg/dL AST 85 H (15-37) U/L ALT 81 H (12-78) U/L Alkaline Phosphatase 89 (46-116) U/L Total Protein 7.5 (6.4-8.2) g/dL Albumin 2.3 L (3.4-5.0) g/dL Globulin 5.2 H (2.3-3.5) g/dL Albumin/Globulin Ratio 0.4 L (1.2-2.2) [place] Results last 24 hrs: Microbiology 09/21/16 18:30 Aerobic Blood Culture - Preliminary Blood - Venous - Lab Draw NO GROWTH AFTER 4 DAYS Anaerobic Blood Culture - Preliminary NO GROWTH AFTER 4 DAYS 09/21/16 18:20 Aerobic Blood Culture - Preliminary Blood - Venous NO GROWTH AFTER 4 DAYS Anaerobic Blood Culture - Preliminary NO GROWTH AFTER 4 DAYS Med Orders - Current: Current Medications Bacitracin (Bacitracin Oint) 0 gm TOP TID [facility] Last Admin: 09/26/16 08:35 Dose: 1 applicful Dimethicone/Zinc Oxide (Rash Relief-Zinc Oxide [place]) 1 - 2 gm TOP Q1H PRN PRN Reason: Rash Last Admin: 09/22/16 08:07 Dose: 1 applic Diphenoxylate HCl/Atropine (Lomotil 0.025-2.5 Mg) 1 tab PO Q6H PRN PRN Reason: Diarrhea Furosemide (Lasix) 40 mg PO BIDDIURETIC [facility] Last Admin: 09/26/16 08:33 Dose: 40 mg Lactulose (Chronulac) 5 gm PO DAILY [facility] Last Admin: 09/26/16 08:35 Dose: 5 gm Metolazone (Zaroxolyn) 5 mg PO BIDDIURETIC [facility] Last Admin: 09/26/16 08:34 Dose: 5 mg Morphine Sulfate (Morphine) 2 mg IVPUSH Q1H PRN PRN Reason: Pain Last Admin: 09/26/16 08:32 Dose: 2 mg Ondansetron HCl (Zofran Odt) 4 mg PO Q6H PRN PRN Reason: Nausea or vomiting Oxycodone HCl (Oxycodone) 10 mg PO Q4H PRN PRN Reason: Pain Last Admin: 09/26/16 08:31 Dose: 10 mg Pramipexole Dihydrochloride (Mirapex) 1 mg PO TID [facility] Last Admin: 09/26/16 08:34 Dose: 1 mg Rifaximin (Xifaxan) 550 mg PO BID [facility] Last Admin: 09/26/16 08:34 Dose: 550 mg Sodium Chloride (Saline Flush) 10 ml FLUSH ASDIRECTED PRN PRN Reason: Keep Vein Open Last Admin: 09/23/16 15:59 Dose: 10 ml Spironolactone (Aldactone) 25 mg PO DAILY [facility] Last Admin: 09/26/16 08:34 Dose: 25 mg Discontinued Medications Acetaminophen (Tylenol Extra Strength) 1,000 mg PO ONETIME ONE Stop: 09/15/16 20:07 Last Admin: 09/15/16 20:18 Dose: 1,000 mg Furosemide (Lasix) 40 mg IVPUSH ONETIME ONE Stop: 09/21/16 13:31 Last Admin: 09/21/16 13:19 Dose: 40 mg Furosemide (Lasix) 40 mg IVPUSH ONETIME ONE Stop: 09/21/16 19:25 Last Admin: 09/21/16 20:01 Dose: 40 mg Furosemide (Lasix) 40 mg PO BID [facility] Last Admin: 09/23/16 08:17 Dose: 40 mg Furosemide (Lasix) 40 mg PO TID [facility] Last Admin: 09/25/16 14:48 Dose: 40 mg Furosemide (Lasix) 40 mg PO BID [facility] Last Admin: 09/25/16 20:03 Dose: 40 mg Lactated Ringer's (Ringers, Lactated) 1,000 mls @ 1,000 mls/hr IV BOLUS ONE Stop: 09/15/16 21:04 Last Admin: 09/15/16 20:25 Dose: 1,000 mls/hr Lactated Ringer's (Ringers, Lactated) 1,000 mls @ 125 mls/hr IV ASDIRECTED [facility] Last Admin: 09/15/16 21:48 Dose: 125 mls/hr Levofloxacin/Dextrose 500 mg/ (Premix) 100 mls @ 100 mls/hr IV Q24H [facility] Last Admin: 09/21/16 20:09 Dose: 100 mls/hr Levofloxacin/Dextrose 500 mg/ (Premix) 100 mls @ 100 mls/hr IV Q24H [facility] Last Admin: 09/24/16 19:59 Dose: 100 mls/hr Albumin Human 12.5 gm/ Premix 50 mls @ 25 mls/hr IV Q2H [facility] Stop: 09/24/16 14:29 Last Admin: 09/24/16 14:25 Dose: 25 mls/hr Albumin Human 12.5 gm/ Premix 50 mls @ 25 mls/hr IV Q2H [facility] Stop: 09/25/16 13:29 Last Admin: 09/25/16 13:56 Dose: 25 mls/hr Lactulose (Chronulac) 10 gm PO DAILY [facility] Last Admin: 09/17/16 08:50 Dose: 10 gm Lidocaine HCl (Xylocaine-Mpf 1%) Confirm Administered Dose 5 ml .ROUTE .STK-MED ONE Stop: 09/22/16 08:39 Last Admin: 09/22/16 23:03 Dose: Not Given Metolazone (Zaroxolyn) 5 mg PO BIDDIURETIC [facility] Last Admin: 09/23/16 07:51 Dose: 5 mg Metolazone (Zaroxolyn) 5 mg PO TIDAC [facility] Last Admin: 09/25/16 16:23 Dose: 5 mg Metolazone (Zaroxolyn) 5 mg PO BID [facility] Last Admin: 09/25/16 20:03 Dose: 5 mg Morphine Sulfate (Morphine) 4 mg IVPUSH ONETIME ONE Stop: 09/15/16 20:04 Last Admin: 09/15/16 20:19 Dose: 4 mg Morphine Sulfate (Morphine) 2 mg IVPUSH ONETIME ONE Stop: 09/15/16 21:16 Last Admin: 09/15/16 22:50 Dose: 2 mg Ondansetron HCl (Zofran) 4 mg IVPUSH ONETIME ONE Stop: 09/15/16 20:40 Last Admin: 09/15/16 20:44 Dose: 4 mg Pramipexole Dihydrochloride (Mirapex) Confirm Administered Dose 1 mg .ROUTE .STK -MED ONE Stop: 09/15/16 23:31 Last Admin: 09/16/16 00:58 Dose: 1 mg Sodium Chloride (Saline Flush) 10 ml FLUSH ASDIRECTED PRN PRN Reason: Keep Vein Open Last Admin: 09/21/16 13:25 Dose: 10 ml - Exam General: alert, oriented, cooperative, moderate distress HEENT: Pupils equal, Pupils reactive, EOMI, Mucous membr. moist/pink Neck: supple Lungs: Clear to auscultation, Normal respiratory effort Cardiovascular: Regular Rate, Regular Rhythm Abdomen: distension (Male) Exam: Scrotal swelling, Scrotum tenderness (L), Scrotum tenderness (R) Back Exam: vertebral tenderness Extremities: calf tenderness Peripheral Pulses: 2+: radial (L), radial (R) Skin: rash Psy/Mental Status: alert, normal affect, anxious - Problem List Review Problem List Initiated/Reviewed/Updated: Yes - My Orders Last 24 Hours: My Active Orders 09/26/16 08:00 Furosemide [Lasix] 40 mg PO BIDDIURETIC Metolazone [Zaroxolyn] 5 mg PO BIDDIURETIC - Plan Plan:: Assessment/plan: #1. Adenocarcinoma of the liver with metastasis. This is a terminal situation with fluid in his abdomen. No place for him to go so he has found a place locally to stay and he will be on hospice. His main problem now is his swelling of the scrotum which I feel is secondary to his cancer with metastasis. He did have similar swelling prior to starting chemotherapy. He has been off his oral chemotherapy due to the expense of close to $3000 per month for Sorafenib 200 MG twice daily. #2. Hepatic encephalopathy. Stable at present. #3. Cellulitis lower extremities. I've also given him 2 more bottles of albumin which reduce the swelling in the leg as well as the scrotum. His albumin is low at 2.2 after 2 units of albumin given yesterday. #4. Restless leg syndrome. We'll continue with Mirapex. #5. Hypertension. His blood pressure was elevated earlier and 137/57 #6. Hepatitis C. this is the cause of the adenocarcinoma of the liver. #7. Marijuana and methamphetamine abuse. #8. Anemia: Hemoglobin 8.8. #9. Scrotal pain: secondary to lymph blockage because of his cancer. #10. His creatinine is 1.3 stable for the last 2 days. I did decrease the diuretics last night. Plan to discharge today.
--- NOTE | 2016-09-26 10:35 | PCM.DCSUM1 ---
Discharge Summary - Hospital Course Brief History: Jonathan came in for a reevaluation by ambulance having excessive weakness and difficulty time with memory and ambulation. He was recently in this facility and wanted to go to a fpc for further care and recently signed a DNR/DNI. His insurance was not completed so he couldn't get the care that he needs. He said his legs are getting increase in size and swelling and painful he said the legs were much larger this morning. He developed a fever with chills but did not take his temperature. His weakness has been progressive. - Discharge Data Discharge Date: 09/26/16 Discharge Disposition: Home, Self-Care 01 Condition: Undetermined - Patient Summary/Data Complications: Whilke in the hosppital he had swelling of the scrotum and penis felt due to the Cancer. He has not been able to get his Sorafeni. The swelling is of his legs and genitals. Consults: hospice Hospital Course: His albumin was low and give his 4 bottles of albumin. He had a lot of diuretics and lost a lot of fluid. He remains in an anemic state. He has agreed to go on hospice. - Patient Instructions Diet: Heart Healthy Diet Activity: As Tolerated - Discharge Plan Home Medications: Home Meds Pramipexole [Mirapex] 1 mg PO TID 05/31/13 [History] Rifaximin [Xifaxan] 1 tab PO BID 03/16/16 [History] Bacitracin [Bacitracin Oint] 1 gm TOP TID #1 tube 06/07/16 [Rx] Diphenoxylate HCl/Atropine [Lomotil] 1 tab PO Q6H PRN #16 tablet 07/05/16 [Rx] Ondansetron [IMW: Ondansetron ODT] 4 mg PO .EVERY 6 HOURS PRN #10 tab 07/05/16 [ Rx] Furosemide [Lasix] 40 mg PO BIDDIURETIC tablet 09/26/16 [Rx] Lactulose [Chronulac] 5 gm PO DAILY cup 09/26/16 [Rx] Metolazone [Zaroxolyn] 5 mg PO BIDDIURETIC tablet 09/26/16 [Rx] Morphine 2 mg IVPUSH Q1H PRN #120 syringe 09/26/16 [Rx] Spironolactone [Aldactone] 25 mg PO DAILY tablet 09/26/16 [Rx] Forms: ED Department Discharge Referrals: PCP,None [Primary Care Provider] - - Discharge Summary/Plan Comment DC Time >30 min.: Yes - Patient Data Vitals - Most Recent: Last Vital Signs Temp 98.5 F 09/26/16 08:11 Pulse 83 09/26/16 08:11 Resp 16 09/26/16 08:11 BP 137/57 L 09/26/16 08:11 Pulse Ox 95 09/26/16 08:11 Weight - Most Recent: 214 lb I&O - Last 24 hours: Intake & Output 09/25/16 09/26/16 09/26/16 22:59 06:59 14:59 Intake Total 900 640 480 Output Total 200 Balance 900 440 480 Lab Results - Last 24 hrs: Laboratory Results - last 24 hr 09/26/16 09/26/16 Range/Units 04:50 04:50 WBC 6.2 (4.5-11.0) K/uL RBC 3.04 L (4.30-5.90) M/uL Hgb 8.8 L (12.0-15.0) g/dL Hct 26.6 L (40.0-54.0) % MCV 88 (80-98) fL MCH 29 (27-31) pg MCHC 33 (32-36) % Plt Count 102 L (150-400) K/uL Neut % (Auto) 58 (36-66) % Lymph % (Auto) 15 L (24-44) % Yell % (Auto) 13 H (2-6) % Eos % (Auto) 12 H (2-4) % Baso % (Auto) 1 (0-1) % Sodium 139 L (140-148) mmol/L Potassium 3.5 L (3.6-5.2) mmol/L Chloride 104 (100-108) mmol/L Carbon Dioxide 28 (21-32) mmol/L Anion Gap 10.5 (5.0-14.0) mmol/L BUN 35 H (7-18) mg/dL Creatinine 1.3 (0.8-1.3) mg/dL Est Cr Clr Drug Dosing 65.42 mL/min Estimated GFR (MDRD) 56 L (>60) Glucose 112 H (74-106) mg/dL Calcium 7.6 L (8.5-10.1) mg/dL Total Bilirubin 1.2 H (0.2-1.0) mg/dL AST 85 H (15-37) U/L ALT 81 H (12-78) U/L Alkaline Phosphatase 89 (46-116) U/L Total Protein 7.5 (6.4-8.2) g/dL Albumin 2.3 L (3.4-5.0) g/dL Globulin 5.2 H (2.3-3.5) g/dL Albumin/Globulin Ratio 0.4 L (1.2-2.2) YING Results - Last 24 hrs: Microbiology 09/21/16 18:30 Aerobic Blood Culture - Preliminary Blood - Venous - Lab Draw NO GROWTH AFTER 4 DAYS Anaerobic Blood Culture - Preliminary NO GROWTH AFTER 4 DAYS 09/21/16 18:20 Aerobic Blood Culture - Preliminary Blood - Venous NO GROWTH AFTER 4 DAYS Anaerobic Blood Culture - Preliminary NO GROWTH AFTER 4 DAYS Med Orders - Current: Current Medications Bacitracin (Bacitracin Oint) 0 gm TOP TID [facility] Last Admin: 09/26/16 08:35 Dose: 1 applicful Dimethicone/Zinc Oxide (Rash Relief-Zinc Oxide [place]) 1 - 2 gm TOP Q1H PRN PRN Reason: Rash Last Admin: 09/22/16 08:07 Dose: 1 applic Diphenoxylate HCl/Atropine (Lomotil 0.025-2.5 Mg) 1 tab PO Q6H PRN PRN Reason: Diarrhea Furosemide (Lasix) 40 mg PO BIDDIURETIC [facility] Last Admin: 09/26/16 08:33 Dose: 40 mg Lactulose (Chronulac) 5 gm PO DAILY [facility] Last Admin: 09/26/16 08:35 Dose: 5 gm Metolazone (Zaroxolyn) 5 mg PO BIDDIURETIC [facility] Last Admin: 09/26/16 08:34 Dose: 5 mg Morphine Sulfate (Morphine) 2 mg IVPUSH Q1H PRN PRN Reason: Pain Last Admin: 09/26/16 08:32 Dose: 2 mg Ondansetron HCl (Zofran Odt) 4 mg PO Q6H PRN PRN Reason: Nausea or vomiting Oxycodone HCl (Oxycodone) 10 mg PO Q4H PRN PRN Reason: Pain Last Admin: 09/26/16 08:31 Dose: 10 mg Pramipexole Dihydrochloride (Mirapex) 1 mg PO TID [facility] Last Admin: 09/26/16 08:34 Dose: 1 mg Rifaximin (Xifaxan) 550 mg PO BID [facility] Last Admin: 09/26/16 08:34 Dose: 550 mg Sodium Chloride (Saline Flush) 10 ml FLUSH ASDIRECTED PRN PRN Reason: Keep Vein Open Last Admin: 09/23/16 15:59 Dose: 10 ml Spironolactone (Aldactone) 25 mg PO DAILY [facility] Last Admin: 09/26/16 08:34 Dose: 25 mg Discontinued Medications Acetaminophen (Tylenol Extra Strength) 1,000 mg PO ONETIME ONE Stop: 09/15/16 20:07 Last Admin: 09/15/16 20:18 Dose: 1,000 mg Furosemide (Lasix) 40 mg IVPUSH ONETIME ONE Stop: 09/21/16 13:31 Last Admin: 09/21/16 13:19 Dose: 40 mg Furosemide (Lasix) 40 mg IVPUSH ONETIME ONE Stop: 09/21/16 19:25 Last Admin: 09/21/16 20:01 Dose: 40 mg Furosemide (Lasix) 40 mg PO BID [facility] Last Admin: 09/23/16 08:17 Dose: 40 mg Furosemide (Lasix) 40 mg PO TID [facility] Last Admin: 09/25/16 14:48 Dose: 40 mg Furosemide (Lasix) 40 mg PO BID [facility] Last Admin: 09/25/16 20:03 Dose: 40 mg Lactated Ringer's (Ringers, Lactated) 1,000 mls @ 1,000 mls/hr IV BOLUS ONE Stop: 09/15/16 21:04 Last Admin: 09/15/16 20:25 Dose: 1,000 mls/hr Lactated Ringer's (Ringers, Lactated) 1,000 mls @ 125 mls/hr IV ASDIRECTED [facility] Last Admin: 09/15/16 21:48 Dose: 125 mls/hr Levofloxacin/Dextrose 500 mg/ (Premix) 100 mls @ 100 mls/hr IV Q24H [facility] Last Admin: 09/21/16 20:09 Dose: 100 mls/hr Levofloxacin/Dextrose 500 mg/ (Premix) 100 mls @ 100 mls/hr IV Q24H [facility] Last Admin: 09/24/16 19:59 Dose: 100 mls/hr Albumin Human 12.5 gm/ Premix 50 mls @ 25 mls/hr IV Q2H [facility] Stop: 09/24/16 14:29 Last Admin: 09/24/16 14:25 Dose: 25 mls/hr Albumin Human 12.5 gm/ Premix 50 mls @ 25 mls/hr IV Q2H [facility] Stop: 09/25/16 13:29 Last Admin: 09/25/16 13:56 Dose: 25 mls/hr Lactulose (Chronulac) 10 gm PO DAILY [facility] Last Admin: 09/17/16 08:50 Dose: 10 gm Lidocaine HCl (Xylocaine-Mpf 1%) Confirm Administered Dose 5 ml .ROUTE .STK-MED ONE Stop: 09/22/16 08:39 Last Admin: 09/22/16 23:03 Dose: Not Given Metolazone (Zaroxolyn) 5 mg PO BIDDIURETIC [facility] Last Admin: 09/23/16 07:51 Dose: 5 mg Metolazone (Zaroxolyn) 5 mg PO TIDAC [facility] Last Admin: 09/25/16 16:23 Dose: 5 mg Metolazone (Zaroxolyn) 5 mg PO BID [facility] Last Admin: 09/25/16 20:03 Dose: 5 mg Morphine Sulfate (Morphine) 4 mg IVPUSH ONETIME ONE Stop: 09/15/16 20:04 Last Admin: 09/15/16 20:19 Dose: 4 mg Morphine Sulfate (Morphine) 2 mg IVPUSH ONETIME ONE Stop: 09/15/16 21:16 Last Admin: 09/15/16 22:50 Dose: 2 mg Ondansetron HCl (Zofran) 4 mg IVPUSH ONETIME ONE Stop: 09/15/16 20:40 Last Admin: 09/15/16 20:44 Dose: 4 mg Pramipexole Dihydrochloride (Mirapex) Confirm Administered Dose 1 mg .ROUTE .STK -MED ONE Stop: 09/15/16 23:31 Last Admin: 09/16/16 00:58 Dose: 1 mg Sodium Chloride (Saline Flush) 10 ml FLUSH ASDIRECTED PRN PRN Reason: Keep Vein Open Last Admin: 09/21/16 13:25 Dose: 10 ml *Q Meaningful Use (DIS) - VTE *Q VTE Criteria *Q: - Stroke *Q Stroke Criteria *Q: - AMI *Q AMI Criteria *Q:
== END 2016-09-26 13:00 | disposition hospice, home (50) | DRG 436 ==
LOC: JP.ED 19:49 → JP.ICU 21:52 → UNDOADMIN 22:35 → JP.ICU 22:35 → JP.MS 09-16 16:00 → JP.ICU 09-16 16:00 → UNDODISIN 09-26 13:00
PROVIDERS: ADMIT Internal Medicine; ATTEND Internal Medicine
DX: C22.7 Other specified carcinomas of liver (principal); C79.9 Secondary malignant neoplasm of unspecified site; L03.116 Cellulitis of left lower limb; L03.115 Cellulitis of right lower limb; R18.0 Malignant ascites; E72.20 Disorder of urea cycle metabolism, unspecified; Z86.39 Personal history of other endocrine, nutritional and metabolic disease; Z66 Do not resuscitate; Z51.5 Encounter for palliative care; I10 Essential (primary) hypertension; B19.20 Unspecified viral hepatitis C without hepatic coma; F17.210 Nicotine dependence, cigarettes, uncomplicated; Z59.0 Homelessness; K72.90 Hepatic failure, unspecified without coma; K74.60 Unspecified cirrhosis of liver; D64.9 Anemia, unspecified; N50.89 Other specified disorders of the male genital organs; N48.89 Other specified disorders of penis; G25.81 Restless legs syndrome; F12.10 Cannabis abuse, uncomplicated; F15.10 Other stimulant abuse, uncomplicated; Z92.21 Personal history of antineoplastic chemotherapy; Z87.898 Personal history of other specified conditions; M54.9 Dorsalgia, unspecified; G89.29 Other chronic pain; H54.7 Unspecified visual loss; Z95.0 Presence of cardiac pacemaker; Z86.14 Personal history of Methicillin resistant Staphylococcus aureus infection; Z88.0 Allergy status to penicillin
CPT/HCPCS: 36415; 80053; 81001; 82140; 83605; 84484; 85027; 85610; 87040 ×2; 96361; 96374; 96375; 96376; 99284; 99285; A9270; J2270; J2405; J7050; J7120 ×2; 76705; 76705-26; 76870; 76870-26; 80048; 85025; 85045; J1940; J1956; P9047